=== PATIENT | male | born 1955 | race Caucasian/White ===

== ENCOUNTER 2023-11-17 10:15 | Outpatient (RCR) | payer MEDICARE, SELFPAY ==
[2023-10-27 10:24] VITALS: BP 159/88; PULSE 62; RESP 18; TEMP 35.6; BMI 62.8
--- NOTE | 2023-10-29 12:23 | WC ---
4.3.24 RT LAT ANKLE INITIAL
--- NOTE | 2023-10-30 10:02 | PCM.WC.HP ---
History of Present Illness Date of Service: 10/27/23 Chief Complaint: Right ankle ulceration History of Wound: Chronic right ankle wound Progress of Wound: Mr. Lane is a 68-year-old diabetic male presenting to the wound care center today for follow-up and evaluation for a right full-thickness wound to the outside of his ankle. Patient states he has been dealing with this wound for approximately 1 year. No treatment thus far. He has been doing home treatment with silver-cream and Band-Aid. Patient does admit to having a foot drop to the right lower extremity and uses a walker for support. He has suffered a stroke and has been recovering over the past year. Patient has not followed up with a professional in regards to the wound. He does admit to falls. He admits that his last A1c was 6.2%. He denies any new onset of trauma. Denies constitutional symptoms. No other pedal complaints at this time. [facility] Social History Smoking Status: Current every day smoker Vital Signs Vital Signs Vital Signs: Weight Weight: 210 kg Body Mass Index (BMI) 62.8 Physical Exam Narrative Vascular: DP and PT pulses are palpable. CFT is brisk. Skin temperature gradient is warm to cool from proximal ankle to distal digit bilateral. Nonpitting edema appreciated to the bilateral lower extremity. Neurological: Light touch intact. Protective sensation is diminished. Dermatological: Full-thickness ulceration to the lateral aspect of the right ankle measuring 1.1 x 1.1 x 0.2 cm. Wound base is granular nature with evidence of small amounts of fibrotic tissue. No active drainage at this time. Webspaces 1 through 4 are clean dry and intact. Toenails 1 through 5 within normal limits. Excision debridement down to and including subcutaneous tissue with a number 3 mm dermal curette to the right lateral ankle without incident. Predebridement measurement was 0.9 x 0.9 x 0.1 cm. Postdebridement measurement is 1.1 x 1.1 x 0.2 cm. Musculoskeletal: Muscle strength is 5 out of 5 to left lower extremity. Right lower extremity muscle strength is 3 out of 5 with evidence of foot drop. Mild pain to palpation to full-thickness ulceration right ankle. No pain with calf compression. Debridement Note Debridement Note Debridement Free Text: Excision debridement down to and including subcutaneous tissue with a number 3 mm dermal curette to the right lateral ankle without incident. Predebridement measurement was 0.9 x 0.9 x 0.1 cm. Postdebridement measurement is 1.1 x 1.1 x 0.2 cm. Post-Debridement Measurements and Additional Note: Post-Debridement Measurements/Treatment WC - Nurse 1 - General Ulcer Assessment Start: 10/27/23 10:23 Freq: Status: Active Protocol: TAVO Activity Type Activity Date Activity User E-sign Co-sign Detail Recorded Client Recorded Date Recorded By Document 10/27/23 10:24 KW Desktop 10/27/23 10:32 KW 10/27/23 10:24 WC - Today's Visit Information Type of service Initial Visit Arrival Mode Ambulatory, Walker Accompanied by Patient Identification Verified (Name & Yes ) Height and Weight Height 6 ft Weight 210 kg Weight in Pounds 463.0 lbs Body Mass Index (BMI) 62.8 BMI Classification Obese BSA - Esvin 3.04 Vital Signs Temperature (97.8 F-99.1 F) 96.0 F L Temperature Source Temporal Pulse Rate (60-100) 62 Pulse Location Monitor Respiratory Rate (12-18) 18 Respiratory rate source Observation Oxygen Delivery Method Room Air Blood Pressure (90/60-120/80) 159/88 H Blood Pressure Mean 111 Source Monitor Position Semi-Fowlers Blood Pressure Location Left Arm History Since Last Visit- (Skip if this is Patient's initial visit) Left Footwear Regular Shoe Right Footwear Regular Shoe Pain Scale: 0-10 Numeric Is Patient Pain Free? Yes Lower Extremity Assessment/ Foot Assessment/ Toe Nail Assessment Left -Posterior Tibial Doppler Inaudible -Dorsalis Pedis Palpable Yes -Dorsalis Pedis Doppler Monophasic -Hair Growth on Legs No -Hair Growth on Toes No -Temperature of Extremity Cool -Capillary Refill Less than 3 Seconds -Thick No -Discolored No -Deformed No -Improper Length & Hygeine No Right -Posterior Tibial Doppler Inaudible -Dorsalis Pedis Palpable Yes -Dorsalis Pedis Doppler Monophasic -Hair Growth on Legs No -Hair Growth on Toes No -Temperature of Extremity Cool -Capillary Refill Less than 3 Seconds -Thick No -Discolored No -Deformed No Neuropathy Assessment Feet - Top Side and Bottom <Entered> (a) Communication Assessment Preferred language Syrian Lock Installer Required No Able to Read Yes Able to Write Yes Communication Tools None Caregiver Communication Skills No Impairment Impairment Right Hearing Abillity Normal Left Hearing Abillity Normal Visual Assistive Devices Glasses Teaching Assessment Preferences Verbal,Written, Demonstration Barriers to Learning None Readiness To Learn Excellent Willingness to Engage in Self Management High Activies Readiness to Engage in Self Management High Activities Anxiety Level Calm Cooperation Cooperative Perception Coherent Interest in Health Problem Asks Questions Education Importance Acknowledges Need Does Patient Smoke tobacco or other Yes substances Smoking Status Current every day smoker Is Patient Diabetic Yes Functional Assessment Recent Decline in Ability to Perform Denies Any Declines, Ambulation Culture/Evangelical/Orthopaedic Surgeon Cultural/Evangelical Needs that may affect No Treatment Plan Would you allow our hospital medical information officer to No meet you for the purpose of spiritual/ emotional support? Orthopaedic Surgeon to contact place of mu-ism No (a) 1 - + WC - Nurse 1 - General Ulcer Measurement Start: 10/27/23 10:23 Freq: Status: Active Protocol: Activity Type Activity Date Activity User E-sign Co-sign Detail Recorded Client Recorded Date Recorded By Document 10/27/23 10:24 KW Desktop 10/27/23 10:32 KW 10/27/23 10:24 Wound Center Nurse 1 #1 RT LAT ANKLE -Current Size (cm) - Length 1 -Current Size (cm) - Width 0.9 -Current Size (cm) - Depth 0.1 -Total Square Cm 0.9 -Date of Last Picture (Recall this 10/27/23 field) -Photo Taken Yes -Exudate Amt Medium -Exudate Type Serosanguineous -Wound Margin Distinct, Outline Attached -Granulation Amt Medium (34-66%) -Granulation Quality [place] -Necrosis Amt Medium (34-66%) -Necrotic Tissue Type Adherent Slough -Texture (Essie-wound Skin Appearance) Assessed, Localized Edema -Moisture (Essie-wound Skin Appearance) Assessed -Color (Essie-wound Skin Appearance) Assessed, Erythema -Temperature (Essie-wound Skin No Abnormality Appearance) (Pt Warm) -Tenderness on Palpation (Essie-wound No Skin Appearance) -Ulcer Cleansing Rinsed/ Irrigated with Saline -Foul Odor after Cleansing No -Anesthetic Used 5% Lidocaine Gel Right Calf (cm) 35 Right Ankle (cm) 23 WC - Nurse 2 - General Ulcer CM Notes Start: 10/27/23 10:23 Freq: Status: Active Protocol: Activity Type Activity Date Activity User E-sign Co-sign Detail Recorded Client Recorded Date Recorded By Document 10/27/23 10:46 Laptop 10/27/23 10:54 10/27/23 10:46 Wound Center Nurse 2 #1 RT LAT ANKLE -Time 10:53 -Correct Patient Yes -Correct Side, Site, Position Yes -Correct Procedure Yes -Procedure Performed Yes -Type of Procedure Debridement -Clinical Debridement Subcutaneous -Tissue Removed Subcutaneous -Post Debridement (cm) - Length 1.1 -Post Debridement (cm) - Width 1.1 -Post Debridement (cm) - Depth 0.2 -Total Square (Post) (cm) 1.21 -Area of Debridement (cm) - Length 1.1 -Area of Debridement (cm) - Width 1.1 -Total Square (Area) (cm) 1.21 -Tunneling No -Undermining/Tunneling No -Circular Undermining No -Wound/Ulcer Outcome Not Healed -Ulcer Cleansing Rinsed/ Irrigated with Saline -Foul Odor after Cleansing No -Bioengineered Tissue No -Bleeding Controlled with Pressure -Treatment Response Procedure Tolerated Well -Offloading No -Assistive Device(s) Wheelchair -Debridement - Subq, 1st 20sq cm Yes Pain Scale: 0-10 Numeric Is Patient Pain Free? Yes - Nurse 3 - General Ulcer D/C NN Start: 10/27/23 10:23 Freq: Status: Active Protocol: Activity Type Activity Date Activity User E-sign Co-sign Detail Recorded Client Recorded Date Recorded By Document 10/27/23 11:00 Desktop 10/27/23 11:03 RB 10/27/23 11:00 Wound Care Center Nurse 3 #1 RT LAT ANKLE -Ulcer Cleansing Wound Cleanser -Primary Dressing Applied Mepilex Border -Other Dressing hydrogel -Primary Dressing Covered/Secured with Dry Gauze,Dry Gauze & Roll Gauze,Secured with Tape -Mepilex Border 1 Treatment Response Procedure Tolerated Well Pain Scale: 0-10 Numeric Is Patient Pain Free? Yes - Visit Discharge Discharge Condition Stable Ambulatory Status Ambulatory, Wheelchair Transportation Private Auto Medication Reconcilliation completed & No provided to patient/care provider Clinical Summary of Care Provided Yes Lab / Micro Data Micro: Microbiology 10/27/23 13:42 Wound Abcess - Ankle Gram Stain - Final 10/27/23 13:42 Wound Abcess - Ankle Wound Culture - Final Staphylococcus hominis hominis 10/27/23 13:42 Wound Abcess - Ankle Anaerobic Culture - Final No anaerobic bacteria isolated. Assessment/Plan Assessment/Plan (1) Non-pressure chronic ulcer of right ankle with fat layer exposed: CODE(S): L97.312 - Non-pressure chronic ulcer of right ankle with fat layer exposed PLAN: Patient was examined and evaluated. All findings were discussed with the patient. All questions were answered to the patient satisfaction. Excision debridement down to and including subcutaneous tissue with a number 3 mm dermal curette to the right lateral ankle without incident. Predebridement measurement was 0.9 x 0.9 x 0.1 cm. Postdebridement measurement is 1.1 x 1.1 x 0.2 cm. Culture was taken to rule out any possibility of bacterial infection at this time. After debridement the right lower extremities were cleaned and patted dry. Right lower extremity was dressed with Santyl, moist gauze, dry sterile dressing and a single-layer Tubigrip. X-ray will be taken of the right lower extremity ankle to rule out any bony involvement since the wound has been chronic for greater to approximately 1 year. Due to the decrease in pulses felt on physical exam we will order vascular studies arterial and venous. Was also educated to the patient and his that the patient does suffer from foot drop to right lower extremity and will benefit from a dorsiflexion assist Ganesh brace. The patient will need to follow-up in the office to get the brace ordered. Persist card was dispensed to the patient for follow-up in office. All things were discussed with the patient in great detail. He was given a prescription to purchase Santyl from his pharmacy. The patient will follow-up with Dr. Etienne at the wound care center in 1 week. (2) Chronic painful diabetic polyneuropathy: CODE(S): E11.42 - Type 2 diabetes mellitus with diabetic polyneuropathy (3) Other specified peripheral vascular diseases: CODE(S): I73.89 - Other specified peripheral vascular diseases (4) Foot drop, right: CODE(S): M21.371 - Foot drop, right foot
[2023-11-03 10:38] VITALS: BP 144/85; PULSE 76; RESP 18; TEMP 36.1; BMI 62.8
--- NOTE | 2023-11-03 11:53 | PCM.WC.PN ---
History of Present Illness Date of Service: 11/03/23 Chief Complaint: Right ankle ulceration History of Wound: Chronic right ankle wound Progress of Wound: Mr. Lane is a 68-year-old diabetic male presenting to the wound care center today for follow-up and evaluation for a right full-thickness wound to the outside of his ankle. Patient states he has been dealing with this wound for approximately 1 year. No treatment thus far. He has been doing home treatment with silver-cream and Band-Aid. Patient does admit to having a foot drop to the right lower extremity and uses a walker for support. He has suffered a stroke and has been recovering over the past year. Patient has not followed up with a professional in regards to the wound. He does admit to falls. He admits that his last A1c was 6.2%. He denies any new onset of trauma. Denies constitutional symptoms. No other pedal complaints at this time. Subjective Subjective Mr. Hernandez is a 68-year-old diabetic male presenting to wound care center today for follow-up and evaluation of full-thickness ulceration to the right ankle. Patient has not done his vascular studies yet nor his x-ray at this time. His cultures have come back positive for staph infection and will be put on antibiotics once discharged today. Patient has been compliant with using his Santyl moist gauze and dry sterile dressing. He still has evidence of foot drop to the right lower extremity and uses a walker for ambulation. His blood sugars well-controlled. He denies any falls at this time. He denies any trauma. Denies constitutional symptoms. Other pedal complaints at this time. Objective Data Objective Data Vital Signs: Vital Signs Temp Pulse Resp BP O2 Del Method 97 F L 76 18 144/85 H Room Air 11/03/23 10:38 11/03/23 10:38 11/03/23 10:38 11/03/23 10:38 10/27/23 10:24 Oxygen Delivery Method Room Air Weight: 210 kg Body Mass Index (BMI) 62.8 Lab / Micro Data Micro: Microbiology 10/27/23 13:42 Wound Abcess - Ankle Gram Stain - Final 10/27/23 13:42 Wound Abcess - Ankle Wound Culture - Final Staphylococcus hominis hominis 10/27/23 13:42 Wound Abcess - Ankle Anaerobic Culture - Final No anaerobic bacteria isolated. Physical Exam Narrative Vascular: DP and PT pulses are palpable. CFT is brisk. Skin temperature gradient is warm to cool from proximal ankle to distal digit bilateral. Nonpitting edema appreciated to the bilateral lower extremity. Neurological: Light touch intact. Protective sensation is diminished. Dermatological: Full-thickness ulceration to the lateral aspect of the right ankle measuring 1.0 x 0.9 x 0.2 cm. Wound base is granular nature with evidence of small amounts of fibrotic tissue. No active drainage at this time. Webspaces 1 through 4 are clean dry and intact. Toenails 1 through 5 within normal limits. Excision debridement down to and including subcutaneous tissue with a number 3 mm dermal curette to the right lateral ankle without incident. Predebridement measurement was 0.9 x 0.9 x 0.1 cm. Postdebridement measurement is 1.0 x 0.9 x 0.2 cm. Musculoskeletal: Muscle strength is 5 out of 5 to left lower extremity. Right lower extremity muscle strength is 3 out of 5 with evidence of foot drop. Mild pain to palpation to full-thickness ulceration right ankle. No pain with calf compression. Debridement Note Debridement Note Debridement Free Text: Excision debridement down to and including subcutaneous tissue with a number 3 mm dermal curette to the right lateral ankle without incident. Predebridement measurement was 0.9 x 0.9 x 0.1 cm. Postdebridement measurement is 1.0 x 0.9 x 0.2 cm. Post-Debridement Measurements and Additional Note: Post-Debridement Measurements/Treatment - Nurse 1 - General Ulcer Assessment Start: 10/27/23 10:23 Freq: Status: Active Protocol: TAVO Activity Type Activity Date Activity User E-sign Co-sign Detail Recorded Client Recorded Date Recorded By Document 10/27/23 10:24 KW Desktop 10/27/23 10:32 KW Document 11/03/23 10:38 RB Desktop 11/03/23 10:41 RB 10/27/23 11/03/23 10:24 10:38 - Today's Visit Information Type of service Initial Visit Follow-up Visit (Physician/[employer] ) Arrival Mode Ambulatory, Ambulatory Walker Transfer Assistance None Accompanied by Patient Identification Verified (Name & Yes Yes ) Patient Requires Transmission-Based No Precautions Height and Weight Height 6 ft Weight 210 kg Weight in Pounds 463.0 lbs Body Mass Index (BMI) 62.8 62.8 BMI Classification Obese Obese BSA - Esvin 3.04 Vital Signs Temperature (97.8 F-99.1 F) 96.0 F L 97 F L Temperature Source Temporal Temporal Pulse Rate (60-100) 62 76 Pulse Location Monitor Monitor Respiratory Rate (12-18) 18 18 Respiratory rate source Observation Observation Oxygen Delivery Method Room Air Blood Pressure (90/60-120/80) 159/88 H 144/85 H Blood Pressure Mean (mm Hg) 111 104 Source Monitor Monitor Position Semi-Fowlers Semi-Fowlers Blood Pressure Location Left Arm Left Arm History Since Last Visit- (Skip if this is Patient's initial visit) Have you changed medications since your No last visit? Any new allergies or adverse reactions No Had a fall/change in ADL's that may No increase risk of falls Signs or symptoms of abuse and/or No neglect since last visit Have you been in the hospital since your No last visit? Has dressing in place as prescribed Yes Has compression in place as prescribed Yes Has offloadiing in place as prescribed No Experienced any changes in pain level or No management Left Footwear Regular Shoe Right Footwear Regular Shoe Pain Scale: 0-10 Numeric Is Patient Pain Free? Yes Yes Lower Extremity Assessment/ Foot Assessment/ Toe Nail Assessment Left -Posterior Tibial Doppler Inaudible -Dorsalis Pedis Palpable Yes -Dorsalis Pedis Doppler Monophasic -Hair Growth on Legs No -Hair Growth on Toes No -Temperature of Extremity Cool -Capillary Refill Less than 3 Seconds -Thick No -Discolored No -Deformed No -Improper Length & Hygeine No Right -Posterior Tibial Doppler Inaudible -Dorsalis Pedis Palpable Yes -Dorsalis Pedis Doppler Monophasic -Hair Growth on Legs No -Hair Growth on Toes No -Temperature of Extremity Cool -Capillary Refill Less than 3 Seconds -Thick No -Discolored No -Deformed No Neuropathy Assessment Feet - Top Side and Bottom <Entered> (a) Communication Assessment Preferred language Maori [place] Manager Required No Able to Read Yes Able to Write Yes Communication Tools None Caregiver Communication Skills No Impairment Impairment Right Hearing Abillity Normal Left Hearing Abillity Normal Visual Assistive Devices Glasses Teaching Assessment Preferences Verbal,Written, Demonstration Barriers to Learning None Readiness To Learn Excellent Willingness to Engage in Self Management High Activies Readiness to Engage in Self Management High Activities Anxiety Level Calm Cooperation Cooperative Perception Coherent Interest in Health Problem Asks Questions Education Importance Acknowledges Need Does Patient Smoke tobacco or other Yes substances Smoking Status Current every day smoker Is Patient Diabetic Yes Functional Assessment Recent Decline in Ability to Perform Denies Any Declines, Ambulation Culture/Mosque/Wire Saw Operator Cultural/Mosque Needs that may affect No Treatment Plan Would you allow our [facility] marine superintendent to No meet you for the purpose of spiritual/ emotional support? Wire Saw Operator to contact place of shinto No (a) 1 - + WC - Nurse 1 - General Ulcer Measurement Start: 10/27/23 10:23 Freq: Status: Active Protocol: Activity Type Activity Date Activity User E-sign Co-sign Detail Recorded Client Recorded Date Recorded By Document 10/27/23 10:24 KW Desktop 10/27/23 10:32 KW Document 11/03/23 10:38 RB Desktop 11/03/23 10:41 RB 10/27/23 11/03/23 10:24 10:38 Wound Center Nurse 1 #1 RT LAT ANKLE -Combined with other wound No -Current Size (cm) - Length 1 1.5 -Current Size (cm) - Width 0.9 1 -Current Size (cm) - Depth 0.1 0.1 -Total Square Cm 0.9 1.5 -Date of Last Picture (Recall this 10/27/23 field) -Photo Taken Yes -Tunneling No -Undermining/Tunneling No -Circular Undermining No -Exudate Amt Medium Large -Exudate Type Serosanguineous Serosanguineous -Wound Margin Distinct, Distinct, Outline Outline Attached Attached -Granulation Amt Medium (34-66%) Medium (34-66%) -Granulation Quality [place] -Slough/Fibrin Yes -Necrosis Amt Medium (34-66%) Medium (34-66%) -Necrotic Tissue Type Adherent Slough Adherent Slough -Structure Exposed N/A -Texture (Essie-wound Skin Appearance) Assessed, Assessed, Localized Edema Scarring -Moisture (Essie-wound Skin Appearance) Assessed Assessed -Color (Essie-wound Skin Appearance) Assessed, Assessed Erythema -Temperature (Essie-wound Skin No Abnormality No Abnormality Appearance) (Pt Warm) (Pt Warm) -Tenderness on Palpation (Essie-wound No No Skin Appearance) -Ulcer Cleansing Rinsed/ Wound Cleanser Irrigated with Saline -Foul Odor after Cleansing No No -Anesthetic Used 5% Lidocaine 5% Lidocaine Gel Gel Right Calf (cm) 35 Right Ankle (cm) 23 - Nurse 2 - General Ulcer CM Notes Start: 10/27/23 10:23 Freq: Status: Active Protocol: Activity Type Activity Date Activity User E-sign Co-sign Detail Recorded Client Recorded Date Recorded By Document 10/27/23 10:46 Laptop 10/27/23 10:54 Document 11/03/23 11:03 Laptop 11/03/23 11:08 10/27/23 11/03/23 10:46 11:03 Wound Center Nurse 2 #1 RT LAT ANKLE -Time 10:53 11:04 -Correct Patient Yes Yes -Correct Side, Site, Position Yes Yes -Correct Procedure Yes Yes -Procedure Performed Yes Yes -Type of Procedure Debridement Debridement -Clinical Debridement Subcutaneous Subcutaneous -Tissue Removed Subcutaneous Subcutaneous -Post Debridement (cm) - Length 1.1 1.0 -Post Debridement (cm) - Width 1.1 0.9 -Post Debridement (cm) - Depth 0.2 0.2 -Total Square (Post) (cm) 1.21 0.90 -Area of Debridement (cm) - Length 1.1 1.0 -Area of Debridement (cm) - Width 1.1 0.9 -Total Square (Area) (cm) 1.21 0.90 -Tunneling No No -Undermining/Tunneling No No -Circular Undermining No No -Wound/Ulcer Outcome Not Healed Not Healed -Ulcer Cleansing Rinsed/ Rinsed/ Irrigated with Irrigated with Saline Saline -Foul Odor after Cleansing No No -Bioengineered Tissue No No -Bleeding Controlled with Pressure Pressure -Treatment Response Procedure Procedure Tolerated Well Tolerated Well -Offloading No No -Assistive Device(s) Wheelchair -Debridement - Subq, 1st 20sq cm Yes Yes Pain Scale: 0-10 Numeric Is Patient Pain Free? Yes Yes - Nurse 3 - General Ulcer D/C NN Start: 10/27/23 10:23 Freq: Status: Active Protocol: Activity Type Activity Date Activity User E-sign Co-sign Detail Recorded Client Recorded Date Recorded By Document 10/27/23 11:00 RB Desktop 10/27/23 11:03 RB Document 11/03/23 11:23 RB Desktop 11/03/23 11:24 RB 10/27/23 11/03/23 11:00 11:23 Wound Care Center Nurse 3 #1 RT LAT ANKLE -Ulcer Cleansing Wound Cleanser Rinsed/ Irrigated with Saline -Primary Dressing Applied Mepilex Border Mepilex Border -Other Dressing hydrogel hydrogel / moistened gauze -Primary Dressing Covered/Secured with Dry Gauze,Dry Gauze & Roll Gauze,Secured with Tape -Mepilex Border 1 1 Treatment Response Procedure Procedure Tolerated Well Tolerated Well Pain Scale: 0-10 Numeric Is Patient Pain Free? Yes Yes WC - Visit Discharge Discharge Condition Stable Stable Ambulatory Status Ambulatory, Ambulatory Wheelchair Transportation Private Auto Private Auto Medication Reconcilliation completed & No No provided to patient/care provider Clinical Summary of Care Provided Yes Yes Assessment/Plan Assessment/Plan (1) Non-pressure chronic ulcer of right ankle with fat layer exposed: CODE(S): L97.312 - Non-pressure chronic ulcer of right ankle with fat layer exposed PLAN: Patient was examined and evaluated. All findings were discussed with the patient. All questions were answered to the patient's satisfaction. Excision debridement down to and including subcutaneous tissue with a number 3 mm dermal curette to the right lateral ankle without incident. Predebridement measurement was 0.9 x 0.9 x 0.1 cm. Postdebridement measurement is 1.0 x 0.9 x 0.2 cm. Right lower extremities were cleaned and patted dry. The ulceration was dressed with nickel thick Santyl moist gauze dry sterile dressing and single-layer Tubigrip. Patient will plan for x-rays and vascular studies next week. After reviewing the patient's culture results few shows evidence of Staph hominis that was growing in the right full-thickness ulceration. The patient will be placed on doxycycline 100 mg twice daily for 2 weeks. Educated patient on risk and benefits of antibiotics and he will move forward with taking them and following the manufactures recommendations. Follow-up at the wound care center with Dr. Etienne in 1 week. (2) Other specified peripheral vascular diseases: CODE(S): I73.89 - Other specified peripheral vascular diseases (3) Foot drop, right: CODE(S): M21.371 - Foot drop, right foot (4) Chronic painful diabetic polyneuropathy: CODE(S): E11.42 - Type 2 diabetes mellitus with diabetic polyneuropathy
--- NOTE | 2023-11-08 09:53 | ART_ITS ---
Reason For Study: Ulcer Procedure A bilateral lower extremity continuous wave Doppler with analog waveform analysis,segmental pressures,and ankle brachial indexes without exercise. Prelim given to Dr. Etienne. Left Segmental Pressures Left brachial= 137mmHg. Left thigh = 147mmHg. Left calf = 145mmHg. Left posterior tibial artery = 143mmHg. Left dorsalis pedis artery = 135mmHg. Left digit = 121 mmHg. Right Segmental Pressures Right brachial= 147mmHg. Right thigh = 66mmHg. Right calf = 92mmHg. Right posterior tibial artery = 60mmHg. Right dorsalis pedis artery = 63mmHg. Right digit = 47 mmHg. Indices The right ankle brachial index by the posterior tibial artery is 0.41. The right ankle brachial index by the dorsalis pedis is 0.43. The right digital-brachial index is 0.32. The left ankle brachial index by the posterior tibial artery is 0.97. The left ankle brachial index by the dorsalis pedis is 0.92. The left digital-brachial index is 0.82. VL/Lower Ext Art Exam w/o Exercis Interpretation Summary Monophasic Doppler waveforms are noted at ankle level on the right. Triphasic D oppler waveforms are noted at ankle level on the left. Pulse-volume recordings appear diminished at all levels on the right. The resting right ankle-brachial index is severely diminished. The resti ng left ankle- brachial index is normal. The right digital-brachial index is severely diminish ed. The left digital- brachial index is normal. 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 There is no evidence of significant arterial occlusive disease in th e left lower extremity. Ordering Physician: Derrek Etienne Referring Physician: Tesfaye Gunderson Performed By: Natty Booth RDCS/RVT
--- NOTE | 2023-11-08 09:53 | VDLE_ITS ---
Reason For Study: Ulcer RIGHT LEFT GSV is normal. CFV is compressible, spontaneous, phasic, CFV is compressible, spontaneous, phasic, competent, and demonstrates normal competent and demonstrates normal augmentation. augmentation. FV is compressible, spontaneous, phasic, FV is compressible, spontaneous, phasic, competent and demonstrates normal competent and demonstrates normal augmentation. augmentation. POP V is compressible, spontaneous, phasic, POP V is compressible, spontaneous, phasic, competent and demonstrates normal competent and demonstrates normal augmentation. augmentation. T/P Trunk is compressible. T/P Trunk is compressible. PTV is compressible. PTV is compressible. LT PerV is compressible. RT PerV is compressible. SFJ is competent and measures 0.57cm x 0.50 SFJ is competent and measures 0.55cm x 0.52 cm. cm. GSV proximal thigh measures 0.34cm x 0.36 cm. GSV proximal thigh measures 0.37cm x 0.40 cm. GSV at knee measures 0.24cm x 0.27 cm. GSV at knee measures 0.28cm x 0.27 cm. GSV above knee is INCOMPETENT for greater GSV is competent throughout. than 0.5 seconds. SSV proximal calf is competent and measures GSV below knee is competent. 0.14cm x 0.12 cm. SSV proximal calf is competent and measures Procedure 0.31cm x 0.33 cm. This is a venous duplex using B-mode, color flow and spectral Doppler. Exam performed in department. A preliminary report was called and/or faxed to . VL/Venous Duplex US - Bryan Extrem Interpretation Summary Deep veins of the lower extremities are bilaterally patent and compressible seg mentally. There is no evidence of deep vein thrombosis on either side. Valvular competence appears in tact within the proximal deep venous systems bilaterally. The great saphenous veins appear bila terally patent and compressible segmentally. Sapheno-femoral junctions are bilaterally competent . The right great saphenous vein appears segmentally competent. The left great saphenous vein miki ears incompetent above the knee. The left great saphenous vein appears competent below the knee. Small saphenous veins are patent and competent bilaterally. Ordering Physician: Derrek Etienne Referring Physician: Tesfaye Gunderson Performed By: Natty Booth, GERMAN, RVT
--- NOTE | 2023-11-08 11:29 | RAD_ITS ---
INDICATION: ULCER EXAMINATION/TECHNIQUE: X-RAY - RIGHT XR Ankle 2 Views 2 VIEWS COMPARISON: No relevant prior comparison study available FINDINGS: SOFT TISSUES: Mild soft tissue swelling of the lateral aspect of the ankle. No radiopaque foreign body. BONES/JOINTS: No evidence of acute fracture or dislocation. Small well-defined bony density distal to the tip of the medial malleolus could be due to old injury. Normal alignment. Preservation of the joint space.. No sclerotic or destructive changes observed. RAD/Ankle 2 Views IMPRESSION: Mild soft tissue swelling. No evidence of acute osseous changes. Electronically Signed: Carlton Pandey MD at 12:08 EDT ,
[2023-11-10 10:18] VITALS: BP 150/73; PULSE 55; RESP 16; TEMP 35.9; BMI 62.8
--- NOTE | 2023-11-10 10:57 | PN.PCM_ITS ---
History of Present Illness Date of Service: 11/10/23 Chief Complaint: Right ankle ulceration History of Wound: Chronic right ankle wound Progress of Wound: Mr. Lane is a 68-year-old diabetic male presenting to the wound care center today for follow-up and evaluation for a right full-thickness wound to the outside of his ankle. Patient states he has been dealing with this wound for approximately 1 year. No treatment thus far. He has been doing home treatment with silver-cream and Band-Aid. Patient does admit to having a foot drop to the right lower extremity and uses a walker for support. He has suffered a stroke and has been recovering over the past year. Patient has not followed up with a professional in regards to the wound. He does admit to falls. He admits that his last A1c was 6.2%. He denies any new onset of trauma. Denies constitutiona l symptoms. No other pedal complaints at this time. Subjective Subjective Mr. Lane is a 68-year-old male presenting to wound care center for follow-up and evaluation of full-thickness ulceration to the right lateral ankle. Patient has been compliant with dressing changes to the right lower extremity. Patient admits to getting his right ankle x-rays and vascular studies and is following up for interpretation evaluation of those as well. He denies any pain to the right ankle. He denies any trauma. He continues to ambulate with a walker without issues. He denies constitutional symptoms. No other pedal complaints at this time. Objective Data Objective Data Vital Signs: Vital Signs Temp Pulse Resp BP O2 Del Method 96.7 F L 55 L 16 150/73 H Room Air 11/10/23 10:18 11/10/23 10:18 11/10/23 10:18 11/10/23 10:18 11/10/23 10:18 Oxygen Delivery Method Room Air Weight: 210 kg Body Mass Index (BMI) 62.8 Lab / Micro Data Micro: Microbiology 10/27/23 13:42 Wound Abcess - Ankle Gram Stain - Final 10/27/23 13:42 Wound Abcess - Ankle Wound Culture - Final Staphylococcus hominis hominis 10/27/23 13:42 Wound Abcess - Ankle Anaerobic Culture - Final No anaerobic bacteria isolated. Physical Exam Narrative Vascular: DP and PT pulses are palpable. CFT is brisk. Skin temperature gradient is warm to cool from proximal ankle to distal digit bilateral. Nonpitting edema appreciated to the bilateral lower extremity. Neurological: Light touch intact. Protective sensation is diminished. Dermatological: Full-thickness ulceration to the lateral aspect of the right ankle measuring 1.1 x 1.3 x 0.2 cm. Wound base is granular nature with evidence of small amounts of fibrotic tissue. No active drainage at this time. Webspaces 1 through 4 are clean dry and intact. Toenails 1 through 5 within normal limits. Excision debridement down to and including subcutaneous tissue with a number 3 mm dermal curette to the right lateral ankle without incident. Predebridement measurement was 1.0 x 1.1 x 0.1 cm. Postdebridement measurement is 1.1 x 1.3 x 0.2 cm. Musculoskeletal: Muscle strength is 5 out of 5 to left lower extremity. Right lower extremity muscle strength is 3 out of 5 with evidence of foot drop. Mild pain to palpation to full-thickness ulceration right ankle. No pain with calf compression. Debridement Note Debridement Note Debridement Free Text: Excision debridement down to and including subcutaneous tissue with a number 3 mm dermal curette to the right lateral ankle without incident. Predebridement measurement was 1.0 x 1.1 x 0.1 cm. Postdebridement measurement is 1.1 x 1.3 x 0.2 cm. Post-Debridement Measurements and Additional Note: Post-Debridement Measurements/Treatment - Nurse 1 - General Ulcer Assessment Start: 10/27/23 10:23 Freq: Status: Active Protocol: .LOWEXFritz Activity Type Activity Date Activity User E-sign Co-sign Detail Recorded Client Recorded Date Recorded By Document 10/27/23 10:24 Desktop 10/27/23 10:32 KW Document 11/03/23 10:38 RB Desktop 11/03/23 10:41 RB Document 11/10/23 10:18 Desktop 11/10/23 10:24 10/27/23 11/03/23 11/10/23 10:24 10:38 10:18 - Today's Visit Information Type of service Initial Visit Follow-up Visit Follow-up Visit (Physician/FREIGHT CLAIM INVESTIGATOR (Physician/FREIGHT CLAIM INVESTIGATOR ) ) Arrival Mode Ambulatory, Ambulatory Ambulatory, Walker Walker Transfer Assistance None None Accompanied by Patient Identification Verified (Name & Yes Yes Yes ) Patient Requires Transmission-Based No No Precautions Height and Weight Height 6 ft Weight 210 kg Weight in Pounds 463.0 lbs Body Mass Index (BMI) 62.8 62.8 62.8 BMI Classification Obese Obese Obese BSA - Esvin 3.04 Vital Signs Temperature (97.8 F-99.1 F) 96.0 F L 97 F L 96.7 F L Temperature Source Temporal Temporal Temporal Pulse Rate (60-100) 62 76 55 L Pulse Location Monitor Monitor Monitor Respiratory Rate (12-18) 18 18 16 Respiratory rate source Observation Observation Observation Oxygen Delivery Method Room Air Room Air Blood Pressure (90/60-120/80) 159/88 H 144/85 H 150/73 H Blood Pressure Mean (mm Hg) 111 104 98 Source Monitor Monitor Monitor Position Semi-Fowlers Semi-Fowlers Sitting Blood Pressure Location Left Arm Left Arm Left Arm History Since Last Visit- (Skip if this is Patient's initial visit) Have you changed medications since your No No last visit? Any new allergies or adverse reactions No No Had a fall/change in ADL's that may No No increase risk of falls Signs or symptoms of abuse and/or No No neglect since last visit Have you been in the hospital since your No No last visit? Has dressing in place as prescribed Yes Yes Has compression in place as prescribed Yes Has offloadiing in place as prescribed No Experienced any changes in pain level or No management Left Footwear Regular Shoe Regular Shoe Right Footwear Regular Shoe Regular Shoe Pain Scale: 0-10 Numeric Is Patient Pain Free? Yes Yes Yes Lower Extremity Assessment/ Foot Assessment/ Toe Nail Assessment Left -Posterior Tibial Doppler Inaudible -Dorsalis Pedis Palpable Yes -Dorsalis Pedis Doppler Monophasic -Hair Growth on Legs No -Hair Growth on Toes No -Temperature of Extremity Cool -Capillary Refill Less than 3 Seconds -Thick No -Discolored No -Deformed No -Improper Length & Hygeine No Right -Posterior Tibial Doppler Inaudible -Dorsalis Pedis Palpable Yes -Dorsalis Pedis Doppler Monophasic -Hair Growth on Legs No -Hair Growth on Toes No -Temperature of Extremity Cool -Capillary Refill Less than 3 Seconds -Thick No -Discolored No -Deformed No Neuropathy Assessment Feet - Top Side and Bottom <Entered> (a) Communication Assessment Preferred language [place] Required No Able to Read Yes Able to Write Yes Communication Tools None Caregiver Communication Skills No Impairment Impairment Right Hearing Abillity Normal Left Hearing Abillity Normal Visual Assistive Devices Glasses Teaching Assessment Preferences Verbal,Written, Demonstration Barriers to Learning None Readiness To Learn Excellent Willingness to Engage in Self Management High Activies Readiness to Engage in Self Management High Activities Anxiety Level Calm Cooperation Cooperative Perception Coherent Interest in Health Problem Asks Questions Education Importance Acknowledges Need Does Patient Smoke tobacco or other Yes substances Smoking Status Current every day smoker Is Patient Diabetic Yes Functional Assessment Recent Decline in Ability to Perform Denies Any Declines, Ambulation Culture/Advent/Health Care Manager Cultural/Advent Needs that may affect No Treatment Plan Would you allow our [facility] buyer to No meet you for the purpose of spiritual/ emotional support? Health Care Manager to contact place of latter-day No (a) 1 - + WC - Nurse 1 - General Ulcer Measurement Start: 10/27/23 10:23 Freq: Status: Active Protocol: Activity Type Activity Date Activity User E-sign Co-sign Detail Recorded Client Recorded Date Recorded By Document 10/27/23 10:24 KW [employer] 10/27/23 10:32 KW Document 11/03/23 10:38 RB Desktop 11/03/23 10:41 RB Document 11/10/23 10:18 Desktop 11/10/23 10:24 10/27/23 11/03/23 11/10/23 10:24 10:38 10:18 Wound Center Nurse 1 #1 RT LAT ANKLE -Combined with other wound No No -Current Size (cm) - Length 1 1.5 3.0 -Current Size (cm) - Width 0.9 1 1.2 -Current Size (cm) - Depth 0.1 0.1 0.3 -Total Square Cm 0.9 1.5 3.60 -Date of Last Picture (Recall this 10/27/23 field) -Photo Taken Yes No -Epithelialization None Present -Tunneling No No -Undermining/Tunneling No No -Circular Undermining No No -Exudate Amt Medium Large Small -Exudate Type Serosanguineous Serosanguineous Serosanguineous -Wound Margin Distinct, Distinct, Distinct, Outline Outline Outline Attached Attached Attached -Granulation Amt Medium (34-66%) Medium (34-66%) Small (1-33%) -Granulation Quality [place] -Slough/Fibrin Yes Yes -Necrosis Amt Medium (34-66%) Medium (34-66%) Small (1-33%) -Necrotic Tissue Type Adherent Slough Adherent Slough Adherent Slough -Structure Exposed N/A -Texture (Essie-wound Skin Appearance) Assessed, Assessed, Assessed Localized Edema Scarring -Moisture (Essie-wound Skin Appearance) Assessed Assessed Assessed, Maceration -Color (Essie-wound Skin Appearance) Assessed, Assessed Assessed Erythema -Temperature (Essie-wound Skin No Abnormality No Abnormality No Abnormality Appearance) (Pt Warm) (Pt Warm) (Pt Warm) -Tenderness on Palpation (Essie-wound No No No Skin Appearance) -Ulcer Cleansing Rinsed/ Wound Cleanser Rinsed/ Irrigated with Irrigated with Saline Saline -Foul Odor after Cleansing No No Yes -Anesthetic Used 5% Lidocaine 5% Lidocaine 5% Lidocaine Gel Gel Gel Right Calf (cm) 35 Right Ankle (cm) 23 WC - Nurse 2 - General Ulcer CM Notes Start: 10/27/23 10:23 Freq: Status: Active Protocol: Activity Type Activity Date Activity User E-sign Co-sign Detail Recorded Client Recorded Date Recorded By Document 10/27/23 10:46 [employer] 10/27/23 10:54 [employer] Document 11/03/23 11:03 CNZZtop 11/03/23 11:08 [employer] Document 11/10/23 10:30 [employer] Laptop 11/10/23 10:43 10/27/23 11/03/23 11/10/23 10:46 11:03 10:30 Wound Center Nurse 2 #1 RT LAT ANKLE -Time 10:53 11:04 10:33 -Correct Patient Yes Yes Yes -Correct Side, Site, Position Yes Yes Yes -Correct Procedure Yes Yes Yes -Procedure Performed Yes Yes Yes -Type of Procedure Debridement Debridement Debridement -Clinical Debridement Subcutaneous Subcutaneous Subcutaneous -Tissue Removed Subcutaneous Subcutaneous Subcutaneous -Post Debridement (cm) - Length 1.1 1.0 1.1 -Post Debridement (cm) - Width 1.1 0.9 1.3 -Post Debridement (cm) - Depth 0.2 0.2 0.2 -Total Square (Post) (cm) 1.21 0.90 1.43 -Area of Debridement (cm) - Length 1.1 1.0 1.1 -Area of Debridement (cm) - Width 1.1 0.9 1.3 -Total Square (Area) (cm) 1.21 0.90 1.43 -Tunneling No No No -Undermining/Tunneling No No No -Circular Undermining No No No -Wound/Ulcer Outcome Not Healed Not Healed Not Healed -Ulcer Cleansing Rinsed/ Rinsed/ Rinsed/ Irrigated with Irrigated with Irrigated with Saline Saline Saline -Foul Odor after Cleansing No No No -Bioengineered Tissue No No No -Bleeding Controlled with Pressure Pressure Pressure -Treatment Response Procedure Procedure Procedure Tolerated Well Tolerated Well Tolerated Well -Offloading No No No -Assistive Device(s) Wheelchair -Debridement - Subq, 1st 20sq cm Yes Yes Yes Pain Scale: 0-10 Numeric Is Patient Pain Free? Yes Yes Yes - Nurse 3 - General Ulcer D/C NN Start: 10/27/23 10:23 Freq: Status: Active Protocol: Activity Type Activity Date Activity User E-sign Co-sign Detail Recorded Client Recorded Date Recorded By Document 10/27/23 11:00 RB Desktop 10/27/23 11:03 RB Document 11/03/23 11:23 RB Desktop 11/03/23 11:24 RB 10/27/23 11/03/23 11:00 11:23 Wound Care Center Nurse 3 #1 RT LAT ANKLE -Ulcer Cleansing Wound Cleanser Rinsed/ Irrigated with Saline -Primary Dressing Applied Mepilex Border Mepilex Border -Other Dressing hydrogel hydrogel / moistened gauze -Primary Dressing Covered/Secured with Dry Gauze,Dry Gauze & Roll Gauze,Secured with Tape -Mepilex Border 1 1 Treatment Response Procedure Procedure Tolerated Well Tolerated Well Pain Scale: 0-10 Numeric Is Patient Pain Free? Yes Yes - Visit Discharge Discharge Condition Stable Stable Ambulatory Status Ambulatory, Ambulatory Wheelchair Transportation Private Auto Private Auto Medication Reconcilliation completed & No No provided to patient/care provider Clinical Summary of Care Provided Yes Yes Assessment/Plan Assessment/Plan (1) Non-pressure chronic ulcer of right ankle with fat layer exposed: CODE(S): L97.312 - Non-pressure chronic ulcer of right ankle with fat layer exposed PLAN: Patient was examined and evaluated. All findings were discussed with the patient. All questions were answered to the patient's satisfaction. Excision debridement down to and including subcutaneous tissue with a number 3 mm dermal curette to the right lateral ankle without incident. Predebridement measurement was 1.0 x 1.1 x 0.1 cm. Postdebridement measurement is 1.1 x 1.3 x 0.2 cm. The right lower extremities were cleaned and patted dry. Santyl nickel thick was applied to the full-thickness ulceration followed by wet gauze dry sterile dressing and single-layer Tubigrip. Patient's right ankle films were reviewed which show no evidence of bone involvement or sign of osteomyelitis. After reviewing the patient's venous studies the venous studies are unremarkable at this time. After reviewing the patient's arterial studies there shows evidence of an SHARITA to the right lower extremity 8.4 and we will begin referral to Dr. Weston for vascular surgery evaluation and intervention based on their recommendations. Due to the patient having compromised vascular flow to the right lower extremity will begin authorization for EpiFix skin graft substitute as this will aid in benefit healing the patient's chronic full-thickness wound to the lateral aspect of the right ankle. The wound has been professionally managed by professionals for 4 weeks. Follow-up at the wound care center with Dr. Etienne in 1 week. (2) Other specified peripheral vascular diseases: CODE(S): I73.89 - Other specified peripheral vascular diseases
[2023-11-17 10:16] VITALS: BP 151/101; PULSE 62; RESP 18; TEMP 35.4; BMI 62.8
--- NOTE | 2023-11-17 10:33 | PCM.WC.PN ---
History of Present Illness Date of Service: 11/17/23 Chief Complaint: Right ankle ulceration History of Wound: Chronic right ankle wound Progress of Wound: Mr. Lane is a 68-year-old diabetic male presenting to the wound care center today for follow-up and evaluation for a right full-thickness wound to the outside of his ankle. Patient states he has been dealing with this wound for approximately 1 year. No treatment thus far. He has been doing home treatment with silver-cream and Band-Aid. Patient does admit to having a foot drop to the right lower extremity and uses a walker for support. He has suffered a stroke and has been recovering over the past year. Patient has not followed up with a professional in regards to the wound. He does admit to falls. He admits that his last A1c was 6.2%. He denies any new onset of trauma. Denies constitutional symptoms. No other pedal complaints at this time. Subjective Subjective Mr. Lane is a 68-year-old male presenting to clinic today with a chief complaint of full-thickness ulceration to the outside of the right ankle. Patient has been compliant with his wound care and dressing changes and is presenting today for application of skin graft substitute as we just got approved through the patient's insurance. Patient admits to some tenderness to the wound as he is not neuropathic. He continues to ambulate in regular without his shoe gear with assistance of a walker secondary to foot drop to the right lower extremity. Denies trauma. Denies constitutional symptoms. No other pedal complaints at this time. Objective Data Objective Data Vital Signs: Vital Signs Temp Pulse Resp BP O2 Del Method 95.8 F L 62 18 151/101 H Room Air 11/17/23 10:16 11/17/23 10:16 11/17/23 10:16 11/17/23 10:16 11/17/23 10:16 Oxygen Delivery Method Room Air Weight: 210 kg Body Mass Index (BMI) 62.8 Lab / Micro Data Micro: Microbiology 10/27/23 13:42 Wound Abcess - Ankle Gram Stain - Final 10/27/23 13:42 Wound Abcess - Ankle Wound Culture - Final Staphylococcus hominis hominis 10/27/23 13:42 Wound Abcess - Ankle Anaerobic Culture - Final No anaerobic bacteria isolated. Physical Exam Narrative Vascular: DP and PT pulses are palpable. CFT is brisk. Skin temperature gradient is warm to cool from proximal ankle to distal digit bilateral. Nonpitting edema appreciated to the bilateral lower extremity. Neurological: Light touch intact. Protective sensation is diminished. Dermatological: Full-thickness ulceration to the lateral aspect of the right ankle measuring 1.1 x 1.0 x 0.1 cm. Wound base is granular nature with evidence of small amounts of fibrotic tissue. No active drainage at this time. Webspaces 1 through 4 are clean dry and intact. Toenails 1 through 5 within normal limits. Excision debridement down to and including subcutaneous tissue with a number 3 mm dermal curette to the right lateral ankle without incident. Predebridement measurement was 1.0 x 0.9 x 0.1 cm. Postdebridement measurement is 1.1 x 1.0 x 0.1 cm. EpiFix 18 mm disc was applied to the right ankle full-thickness ulceration with 100% use. First application. The graft site was free and clear of any infection. The wound/skin graft substitute was dressed with nonadherent bandage secured in place with Steri-Strips followed by bolster dressing as well as a single layer Tubigrip. Musculoskeletal: Muscle strength is 5 out of 5 to left lower extremity. Right lower extremity muscle strength is 3 out of 5 with evidence of foot drop. Mild pain to palpation to full-thickness ulceration right ankle. No pain with calf compression. Debridement Note Debridement Note Debridement Free Text: Excision debridement down to and including subcutaneous tissue with a number 3 mm dermal curette to the right lateral ankle without incident. Predebridement measurement was 1.0 x 0.9 x 0.1 cm. Postdebridement measurement is 1.1 x 1.0 x 0.1 cm. EpiFix 18 mm disc was applied to the right ankle full-thickness ulceration with 100% use. First application. The graft site was free and clear of any infection. The wound/skin graft substitute was dressed with nonadherent bandage secured in place with Steri-Strips followed by bolster dressing as well as a single layer Tubigrip. Post-Debridement Measurements and Additional Note: Post-Debridement Measurements/Treatment LUIS DANIEL - Nurse 1 - General Ulcer Assessment Start: 10/27/23 10:23 Freq: Status: Active Protocol: TAVO Activity Type Activity Date Activity User E-sign Co-sign Detail Recorded Client Recorded Date Recorded By Document 10/27/23 10:24 KW Desktop 10/27/23 10:32 KW Document 11/03/23 10:38 RB Desktop 11/03/23 10:41 RB Document 11/10/23 10:18 GM Desktop 11/10/23 10:24 GM Document 11/17/23 10:16 GM Desktop 11/17/23 10:21 GM 10/27/23 11/03/23 11/10/23 10:24 10:38 10:18 WC - Today's Visit Information Type of service Initial Visit Follow-up Visit Follow-up Visit (Physician/CAREER ADVISOR (Physician/CAREER ADVISOR ) ) Arrival Mode Ambulatory, Ambulatory Ambulatory, Walker Walker Transfer Assistance None None Accompanied by Patient Identification Verified (Name & Yes Yes Yes ) Patient Requires Transmission-Based No No Precautions Height and Weight Height 6 ft Weight 210 kg Weight in Pounds 463.0 lbs Body Mass Index (BMI) 62.8 62.8 62.8 BMI Classification Obese Obese Obese BSA - Esvin 3.04 Vital Signs Temperature (97.8 F-99.1 F) 96.0 F L 97 F L 96.7 F L Temperature Source Temporal Temporal Temporal Pulse Rate (60-100) 62 76 55 L Pulse Location Monitor Monitor Monitor Respiratory Rate (12-18) 18 18 16 Respiratory rate source Observation Observation Observation Oxygen Delivery Method Room Air Room Air Blood Pressure (90/60-120/80) 159/88 H 144/85 H 150/73 H Blood Pressure Mean (mm Hg) 111 104 98 Source Monitor Monitor Monitor Position Semi-Fowlers Semi-Fowlers Sitting Blood Pressure Location Left Arm Left Arm Left Arm History Since Last Visit- (Skip if this is Patient's initial visit) Have you changed medications since your No No last visit? Any new allergies or adverse reactions No No Had a fall/change in ADL's that may No No increase risk of falls Signs or symptoms of abuse and/or No No neglect since last visit Have you been in the hospital since your No No last visit? Has dressing in place as prescribed Yes Yes Has compression in place as prescribed Yes Has offloadiing in place as prescribed No Experienced any changes in pain level or No management Left Footwear Regular Shoe Regular Shoe Right Footwear Regular Shoe Regular Shoe Pain Scale: 0-10 Numeric Is Patient Pain Free? Yes Yes Yes Lower Extremity Assessment/ Foot Assessment/ Toe Nail Assessment Left -Posterior Tibial Doppler Inaudible -Dorsalis Pedis Palpable Yes -Dorsalis Pedis Doppler Monophasic -Hair Growth on Legs No -Hair Growth on Toes No -Temperature of Extremity Cool -Capillary Refill Less than 3 Seconds -Thick No -Discolored No -Deformed No -Improper Length & Hygeine No Right -Posterior Tibial Doppler Inaudible -Dorsalis Pedis Palpable Yes -Dorsalis Pedis Doppler Monophasic -Hair Growth on Legs No -Hair Growth on Toes No -Temperature of Extremity Cool -Capillary Refill Less than 3 Seconds -Thick No -Discolored No -Deformed No Neuropathy Assessment Feet - Top Side and Bottom <Entered> (a) Communication Assessment Preferred language Turkmen Water Pump Operator Required No Able to Read Yes Able to Write Yes Communication Tools None Caregiver Communication Skills No Impairment Impairment Right Hearing Abillity Normal Left Hearing Abillity Normal Visual Assistive Devices Glasses Teaching Assessment Preferences Verbal,Written, Demonstration Barriers to Learning None Readiness To Learn Excellent Willingness to Engage in Self Management High Activies Readiness to Engage in Self Management High Activities Anxiety Level Calm Cooperation Cooperative Perception Coherent Interest in Health Problem Asks Questions Education Importance Acknowledges Need Does Patient Smoke tobacco or other Yes substances Smoking Status Current every day smoker Is Patient Diabetic Yes Functional Assessment Recent Decline in Ability to Perform Denies Any Declines, Ambulation Culture/Restorationism/Corporation Officer Cultural/Restorationism Needs that may affect No Treatment Plan Would you allow our hospital car rental service attendant to No meet you for the purpose of spiritual/ emotional support? Corporation Officer to contact place of judaism No 11/17/23 10:16 WC - Today's Visit Information Type of service Follow-up Visit (Physician/CAREER ADVISOR ) Arrival Mode Ambulatory, Walker Transfer Assistance None Accompanied by Patient Identification Verified (Name & Yes ) Patient Requires Transmission-Based Precautions Height and Weight Height Weight Weight in Pounds Body Mass Index (BMI) 62.8 BMI Classification Obese BSA - Esvin Vital Signs Temperature (97.8 F-99.1 F) 95.8 F L Temperature Source Temporal Pulse Rate (60-100) 62 Pulse Location Monitor Respiratory Rate (12-18) 18 Respiratory rate source Observation Oxygen Delivery Method Room Air Blood Pressure (90/60-120/80) 151/101 H Blood Pressure Mean (mm Hg) 117 Source Monitor Position Sitting Blood Pressure Location Right Arm History Since Last Visit- (Skip if this is Patient's initial visit) Have you changed medications since your No last visit? Any new allergies or adverse reactions No Had a fall/change in ADL's that may No increase risk of falls Signs or symptoms of abuse and/or No neglect since last visit Have you been in the hospital since your No last visit? Has dressing in place as prescribed Yes Has compression in place as prescribed Yes Has offloadiing in place as prescribed N/A Experienced any changes in pain level or management Left Footwear Regular Shoe Right Footwear Regular Shoe Pain Scale: 0-10 Numeric Is Patient Pain Free? Yes Lower Extremity Assessment/ Foot Assessment/ Toe Nail Assessment Left -Posterior Tibial Doppler -Dorsalis Pedis Palpable -Dorsalis Pedis Doppler -Hair Growth on Legs -Hair Growth on Toes -Temperature of Extremity -Capillary Refill -Thick -Discolored -Deformed -Improper Length & Hygeine Right -Posterior Tibial Doppler -Dorsalis Pedis Palpable -Dorsalis Pedis Doppler -Hair Growth on Legs -Hair Growth on Toes -Temperature of Extremity -Capillary Refill -Thick -Discolored -Deformed Neuropathy Assessment Feet - Top Side and Bottom Communication Assessment Preferred speech language pathologist assistant Required Able to Read Able to Write Communication Tools Caregiver Communication Skills Impairment Right Hearing Abillity Left Hearing Abillity Visual Assistive Devices Teaching Assessment Preferences Barriers to Learning Readiness To Learn Willingness to Engage in Self Management Activies Readiness to Engage in Self Management Activities Anxiety Level Cooperation Perception Interest in Health Problem Education Importance Does Patient Smoke tobacco or other substances Smoking Status Is Patient Diabetic Functional Assessment Recent Decline in Ability to Perform Culture/Restorationism/Corporation Officer Cultural/Restorationism Needs that may affect Treatment Plan Would you allow our hospital car rental service attendant to meet you for the purpose of spiritual/ emotional support? Corporation Officer to contact place of judaism (a) 1 - + WC - Nurse 1 - General Ulcer Measurement Start: 10/27/23 10:23 Freq: Status: Active Protocol: Activity Type Activity Date Activity User E-sign Co-sign Detail Recorded Client Recorded Date Recorded By Document 10/27/23 10:24 KW Desktop 10/27/23 10:32 KW Document 11/03/23 10:38 RB Desktop 11/03/23 10:41 RB Document 11/10/23 10:18 GM Desktop 11/10/23 10:24 GM Document 11/17/23 10:16 GM Desktop 11/17/23 10:21 10/27/23 11/03/23 11/10/23 10:24 10:38 10:18 Wound Center Nurse 1 #1 RT LAT ANKLE -Combined with other wound No No -Current Size (cm) - Length 1 1.5 3.0 -Current Size (cm) - Width 0.9 1 1.2 -Current Size (cm) - Depth 0.1 0.1 0.3 -Total Square Cm 0.9 1.5 3.60 -Date of Last Picture (Recall this 10/27/23 field) -Photo Taken Yes No -Epithelialization None Present -Tunneling No No -Undermining/Tunneling No No -Circular Undermining No No -Exudate Amt Medium Large Small -Exudate Type Serosanguineous Serosanguineous Serosanguineous -Wound Margin Distinct, Distinct, Distinct, Outline Outline Outline Attached Attached Attached -Granulation Amt Medium (34-66%) Medium (34-66%) Small (1-33%) -Granulation Quality [place] -Slough/Fibrin Yes Yes -Necrosis Amt Medium (34-66%) Medium (34-66%) Small (1-33%) -Necrotic Tissue Type Adherent Slough Adherent Slough Adherent Slough -Structure Exposed N/A -Texture (Essie-wound Skin Appearance) Assessed, Assessed, Assessed Localized Edema Scarring -Moisture (Essie-wound Skin Appearance) Assessed Assessed Assessed, Maceration -Color (Essie-wound Skin Appearance) Assessed, Assessed Assessed Erythema -Temperature (Essie-wound Skin No Abnormality No Abnormality No Abnormality Appearance) (Pt Warm) (Pt Warm) (Pt Warm) -Tenderness on Palpation (Essie-wound No No No Skin Appearance) -Ulcer Cleansing Rinsed/ Wound Cleanser Rinsed/ Irrigated with Irrigated with Saline Saline -Foul Odor after Cleansing No No Yes -Anesthetic Used 5% Lidocaine 5% Lidocaine 5% Lidocaine Gel Gel Gel Right Calf (cm) 35 Right Ankle (cm) 23 11/17/23 10:16 Wound Center Nurse 1 #1 RT LAT ANKLE -Combined with other wound No -Current Size (cm) - Length 0.9 -Current Size (cm) - Width 1.0 -Current Size (cm) - Depth 0.2 -Total Square Cm 0.90 -Date of Last Picture (Recall this field) -Photo Taken No -Epithelialization Small 1-33% -Tunneling No -Undermining/Tunneling No -Circular Undermining No -Exudate Amt Medium -Exudate Type Yellow/Green -Wound Margin Distinct, Outline Attached -Granulation Amt Small (1-33%) -Granulation Quality [place] -Slough/Fibrin Yes -Necrosis Amt Medium (34-66%) -Necrotic Tissue Type Adherent Slough -Structure Exposed N/A -Texture (Essie-wound Skin Appearance) Assessed -Moisture (Essie-wound Skin Appearance) Assessed -Color (Essie-wound Skin Appearance) Assessed, Erythema -Temperature (Essie-wound Skin No Abnormality Appearance) (Pt Warm) -Tenderness on Palpation (Essie-wound No Skin Appearance) -Ulcer Cleansing Rinsed/ Irrigated with Saline -Foul Odor after Cleansing No -Anesthetic Used 5% Lidocaine Gel Right Calf (cm) 35.5 Right Ankle (cm) 23.2 WC - Nurse 2 - General Ulcer CM Notes Start: 10/27/23 10:23 Freq: Status: Active Protocol: Activity Type Activity Date Activity User E-sign Co-sign Detail Recorded Client Recorded Date Recorded By Document 10/27/23 10:46 [employer] 10/27/23 10:54 [employer] Document 11/03/23 11:03 [employer] Laptop 11/03/23 11:08 [employer] Document 11/10/23 10:30 [employer] Laptop 11/10/23 10:43 [employer] Document 11/17/23 10:30 [employer] Laptop 11/17/23 10:32 [employer] 10/27/23 11/03/23 11/10/23 10:46 11:03 10:30 Wound Center Nurse 2 #1 RT LAT ANKLE -Time 10:53 11:04 10:33 -Correct Patient Yes Yes Yes -Correct Side, Site, Position Yes Yes Yes -Correct Procedure Yes Yes Yes -Procedure Performed Yes Yes Yes -Type of Procedure Debridement Debridement Debridement -Clinical Debridement Subcutaneous Subcutaneous Subcutaneous -Tissue Removed Subcutaneous Subcutaneous Subcutaneous -Post Debridement (cm) - Length 1.1 1.0 1.1 -Post Debridement (cm) - Width 1.1 0.9 1.3 -Post Debridement (cm) - Depth 0.2 0.2 0.2 -Total Square (Post) (cm) 1.21 0.90 1.43 -Area of Debridement (cm) - Length 1.1 1.0 1.1 -Area of Debridement (cm) - Width 1.1 0.9 1.3 -Total Square (Area) (cm) 1.21 0.90 1.43 -Tunneling No No No -Undermining/Tunneling No No No -Circular Undermining No No No -Wound/Ulcer Outcome Not Healed Not Healed Not Healed -Ulcer Cleansing Rinsed/ Rinsed/ Rinsed/ Irrigated with Irrigated with Irrigated with Saline Saline Saline -Foul Odor after Cleansing No No No -Bioengineered Tissue No No No -Type of Bioengineered Tissue -Expiration Date -Product Lot Number -Percent Used -Lot number of Saline Used -Bleeding Controlled with Pressure Pressure Pressure -Treatment Response Procedure Procedure Procedure Tolerated Well Tolerated Well Tolerated Well -Offloading No No No -Assistive Device(s) Wheelchair -Debridement - Subq, 1st 20sq cm Yes Yes Yes -Apply Skin Sub - 1st 25 sq cm - Legs -Epifix 18mm Disc Pain Scale: 0-10 Numeric Is Patient Pain Free? Yes Yes Yes 11/17/23 10:30 Wound Center Nurse 2 #1 RT LAT ANKLE -Time 10:30 -Correct Patient Yes -Correct Side, Site, Position Yes -Correct Procedure Yes -Procedure Performed Yes -Type of Procedure Debridement -Clinical Debridement Subcutaneous -Tissue Removed Subcutaneous -Post Debridement (cm) - Length 1.1 -Post Debridement (cm) - Width 1.0 -Post Debridement (cm) - Depth 0.1 -Total Square (Post) (cm) 1.10 -Area of Debridement (cm) - Length 1.1 -Area of Debridement (cm) - Width 1.0 -Total Square (Area) (cm) 1.10 -Tunneling No -Undermining/Tunneling No -Circular Undermining No -Wound/Ulcer Outcome Not Healed -Ulcer Cleansing Rinsed/ Irrigated with Saline -Foul Odor after Cleansing No -Bioengineered Tissue Yes -Type of Bioengineered Tissue Epifix 18mm Disc -Expiration Date 05/26/28 -Product Lot Number [id number] -Percent Used 100 -Lot number of Saline Used [id number] -Bleeding Controlled with Pressure -Treatment Response Procedure Tolerated Well -Offloading No -Assistive Device(s) -Debridement - Subq, 1st 20sq cm No -Apply Skin Sub - 1st 25 sq cm - Legs 1 -Epifix 18mm Disc 3 Pain Scale: 0-10 Numeric Is Patient Pain Free? Yes WC - Nurse 3 - General Ulcer D/C NN Start: 10/27/23 10:23 Freq: Status: Active Protocol: Activity Type Activity Date Activity User E-sign Co-sign Detail Recorded Client Recorded Date Recorded By Document 10/27/23 11:00 RB Desktop 10/27/23 11:03 RB Document 11/03/23 11:23 RB Desktop 11/03/23 11:24 RB Document 11/10/23 11:02 RB Desktop 11/10/23 11:03 RB 10/27/23 11/03/23 11/10/23 11:00 11:23 11:02 Wound Care Center Nurse 3 #1 RT LAT ANKLE -Ulcer Cleansing Wound Cleanser Rinsed/ Rinsed/ Irrigated with Irrigated with Saline Saline -Primary Dressing Applied Mepilex Border Mepilex Border Mepilex Border -Other Dressing hydrogel hydrogel / hydrogel moistened gauze -Primary Dressing Covered/Secured with Dry Gauze,Dry Gauze & Roll Gauze,Secured with Tape -Mepilex Border 1 1 1 Right -Tubular Bandage Single Layer -Size of Tubigrip Used Size E -Size E ($) 1 Treatment Response Procedure Procedure Procedure Tolerated Well Tolerated Well Tolerated Well Pain Scale: 0-10 Numeric Is Patient Pain Free? Yes Yes Yes WC - Visit Discharge Discharge Condition Stable Stable Stable Ambulatory Status Ambulatory, Ambulatory Ambulatory, Wheelchair Walker Transportation Private Auto Private Auto Private Auto Medication Reconcilliation completed & No No No provided to patient/care provider Clinical Summary of Care Provided Yes Yes Yes Assessment/Plan Assessment/Plan (1) Non-pressure chronic ulcer of right ankle with fat layer exposed: CODE(S): L97.312 - Non-pressure chronic ulcer of right ankle with fat layer exposed PLAN: Patient was examined and evaluated. All findings were discussed with the patient. All questions were answered to the patient's satisfaction. Excision debridement down to and including subcutaneous tissue with a number 3 mm dermal curette to the right lateral ankle without incident. Predebridement measurement was 1.0 x 0.9 x 0.1 cm. Postdebridement measurement is 1.1 x 1.0 x 0.1 cm. EpiFix 18 mm disc was applied to the right ankle full-thickness ulceration with 100% use. First application. The graft site was free and clear of any infection. The wound/skin graft substitute was dressed with nonadherent bandage secured in place with Steri-Strips followed by bolster dressing as well as a single layer Tubigrip. Patient will keep the right lower extremity dressing clean dry and intact not to remove or get it wet. He was understanding of this. Follow-up at the wound care center with Dr. Etienne in 1 week. (2) Other specified peripheral vascular diseases: CODE(S): I73.89 - Other specified peripheral vascular diseases (3) Foot drop, right: CODE(S): M21.371 - Foot drop, right foot
== END 2023-11-23 23:59 | disposition home or self-care (01) ==
LOC: WC 10:15
PROVIDERS: PCP Nurse Practitioner Family; Referring Provider Nurse Practitioner Family; Visit Provider Podiatrist Foot & Ankle Surgery
DX: L97.312 Non-pressure chronic ulcer of right ankle with fat layer exposed (principal); E11.42 Type 2 diabetes mellitus with diabetic polyneuropathy; F17.200 Nicotine dependence, unspecified, uncomplicated; R60.0 Localized edema; I73.89 Other specified peripheral vascular diseases; M21.371 Foot drop, right foot
CPT/HCPCS: 11042; 15271; 73600; 87070; 87075; 87077; 87101; 87186; 87205; 93923; 93970; 99204; 99214; Q4186; G0463

== ENCOUNTER → 2023-11-25 | Outpatient (CLI) | payer MEDICARE, SELFPAY ==
[2023-11-25 17:17] LABS: Creatinine, Serum 1.17 mg/dL (0.70-1.30); EST Glomerular Filtration Rate 66 mL/min (>60); Est Glom Filt Rate - Afr Amer 80 mL/min (>60)
== END | disposition home or self-care (01) ==
LOC: LAB 15:55
PROVIDERS: PCP Nurse Practitioner Family; Referring Provider Surgery Trauma Surgery; Visit Provider Surgery Trauma Surgery
DX: I70.25 Atherosclerosis of native arteries of other extremities with ulceration (principal)
CPT/HCPCS: 36415; 82565

== ENCOUNTER → 2023-12-08 | Outpatient (CLI) | payer MEDICARE, SELFPAY ==
--- NOTE | 2023-12-08 14:00 | CT_ITS ---
STUDY: CTA OF THE ABDOMINAL AORTA AND BILATERAL LOWER EXTREMITIES REASON FOR EXAM: Male, 68 years old patient with atherosclerosis with ulceration right lower extremity. RADIATION DOSAGE (If Supplied By Facility): CTDIvol = ( 10.42 ) mGy, DLP = ( 1874.35 ) mGycm TECHNIQUE: Axial CT angiography multi-detector data acquisition was obtained from the bases to bilateral feet following intravenous administration of 100 mL of IV Isovue-370. Axial images and MIP images were reconstructed from the axial data set. Post-processing of the angiographic images was performed, with multiplanar reformation and 3D reconstruction. Individualized dose optimization techniques were used for this CT. TECHNICAL QUALITY: Good COMPARISON: None. Descriptors of Narrowing: None (0%) Mild (< 50%) Moderate (50-70%) Severe (70-90%) Subtotal/Total Occlusion (90-100%) Non-Evaluable (technically non-diagnostic FINDINGS: Abdominal aorta: There is mild diffuse narrowing. Celiac and superior mesenteric arteries: No demonstrated narrowing. Inferior mesenteric artery: There is mild diffuse narrowing. Right renal artery(arteries): No demonstrated narrowing. Left renal artery(arteries): No demonstrated narrowing. Right common iliac artery: There is complete thrombosis of the right common iliac artery. Right external iliac artery: There is moderate diffuse narrowing. Right internal iliac artery: There is thrombosis of the internal iliac artery. Left common iliac artery: There is mild diffuse narrowing. Left external iliac artery: No demonstrated narrowing. Left internal iliac artery: No demonstrated narrowing. RIGHT LOWER EXTREMITY Right common femoral artery: No demonstrated narrowing. Right profundus femoris: No demonstrated narrowing. Right superficial femoral: There is complete thrombosis of the distal right femoral artery. Right popliteal artery: There is mild diffuse narrowing. Right tibioperoneal trunk: No demonstrated narrowing. Right anterior tibial artery: Probably thrombosed Right posterior tibial artery: Probably thrombosed. Right peroneal artery: Probably thrombosed. LEFT LOWER EXTREMITY Left common femoral artery: There is mild diffuse narrowing. Left profundus femoris: No demonstrated narrowing. Left superficial femoral: There is mild diffuse narrowing. Left popliteal artery: No demonstrated narrowing. Left tibioperoneal trunk: No demonstrated narrowing. Left anterior tibial artery: There is mild diffuse narrowing, with visualization of the vessel to the distal calf. Left posterior tibial artery: There is moderate diffuse narrowing, with visualization of the vessel to the distal calf. Left peroneal artery: There is moderate diffuse narrowing, with visualization of the vessel to the distal calf. ABDOMINAL AND PELVIC FINDINGS: The visualized lung bases are unremarkable. The visualized portions of the heart are within normal limits. Normal liver. There are multiple gallstones. Normal spleen. Normal pancreas. There appears to be left adrenal hyperplasia. Right adrenal gland has a grossly normal appearance. Normal right kidney. Normal left kidney. Normal visualized stomach. There is no obvious dilated bowel, ascites or pneumoperitoneum. Small bowel has a grossly normal appearance. There is stool and/or gas visible throughout the colon. There are multiple sigmoid colon diverticula. The appendix is visualized and appears normal. There is diffuse atherosclerotic calcification of the abdominal aorta, without a demonstrated aneurysm. Normal inferior vena cava. Normal retroperitoneum. Normal urinary bladder. There are prostatic calcifications. There is a right-sided inguinal hernia containing adipose tissue. There are diffuse degenerative changes of the visualized spine. The patient has had a total left hip arthroplasty. CT/CTA Abd w/Runoff W/WO Contrast IMPRESSION: 1. 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 2. Thrombosis of the distal right superficial femoral artery. 3. Probable thrombosis of all the arteries of the right calf. 4. Cholelithiasis. 5. Colonic diverticulosis. Electronically Signed: Tori Silvestre MD at 3:23 EDT ,
== END | disposition home or self-care (01) ==
LOC: CT 13:59
PROVIDERS: PCP Nurse Practitioner Family; Referring Provider Surgery Trauma Surgery; Visit Provider Surgery Trauma Surgery
DX: I73.9 Peripheral vascular disease, unspecified (principal); I74.5 Embolism and thrombosis of iliac artery; I74.8 Embolism and thrombosis of other arteries; K80.20 Calculus of gallbladder without cholecystitis without obstruction; K57.90 Diverticulosis of intestine, part unspecified, without perforation or abscess without bleeding
CPT/HCPCS: 75635; Q9967; A4216

== ENCOUNTER 2023-12-22 10:15 | Outpatient (RCR) | payer MEDICARE, SELFPAY ==
[2023-11-24 00:09] VITALS: BP 151/101; PULSE 62; RESP 18; TEMP 35.4; BMI 62.8
[2023-11-24 10:18] VITALS: BP 158/94; PULSE 42; RESP 18; BMI 62.8
--- NOTE | 2023-11-24 11:27 | PCM.WC.PN ---
History of Present Illness Date of Service: 11/24/23 Chief Complaint: Right ankle ulceration History of Wound: Chronic right ankle wound Subjective Subjective Mr. Hernandez is a 68-year-old male presenting to clinic today for follow-up evaluation of right lateral ankle full-thickness ulceration. Patient is scheduled to see the vascular surgeon on 11/25/2023 at 3 PM. Patient has been doing home dressing changes and states he notices good improvement to his wound to the right ankle. Denies trauma. Denies constitutional symptoms. Other pedal complaints at this time. Objective Data Objective Data Vital Signs: Vital Signs Temp Pulse Resp BP O2 Del Method 95.8 F L 42 L 18 158/94 H Room Air 11/24/23 00:09 11/24/23 10:18 11/24/23 10:18 11/24/23 10:18 11/24/23 10:18 Oxygen Delivery Method Room Air Weight: 210 kg Body Mass Index (BMI) 62.8 Physical Exam Narrative Vascular: DP and PT pulses are palpable. CFT is brisk. Skin temperature gradient is warm to cool from proximal ankle to distal digit bilateral. Nonpitting edema appreciated to the bilateral lower extremity. Neurological: Light touch intact. Protective sensation is diminished. Dermatological: Full-thickness ulceration to the lateral aspect of the right ankle measuring 1.0 x 0.9 x 0.1 cm. Wound base is granular nature with evidence of small amounts of fibrotic tissue. No active drainage at this time. Webspaces 1 through 4 are clean dry and intact. Toenails 1 through 5 within normal limits. Excision debridement down to and including subcutaneous tissue with a number 3 mm dermal curette to the right lateral ankle without incident. Predebridement measurement was 0.9 x 0.8 x 0.1 cm. Postdebridement measurement is 1.0 x 0.9 x 0.1 cm. EpiFix 18 mm disc was applied to the right ankle full-thickness ulceration with 100% use. Second application. The graft site was free and clear of any infection. The wound/skin graft substitute was dressed with nonadherent bandage secured in place with Steri-Strips followed by bolster dressing as well as a single layer Tubigrip. Musculoskeletal: Muscle strength is 5 out of 5 to left lower extremity. Right lower extremity muscle strength is 3 out of 5 with evidence of foot drop. Mild pain to palpation to full-thickness ulceration right ankle. No pain with calf compression. Debridement Note Debridement Note Debridement Free Text: Excision debridement down to and including subcutaneous tissue with a number 3 mm dermal curette to the right lateral ankle without incident. Predebridement measurement was 0.9 x 0.8 x 0.1 cm. Postdebridement measurement is 1.0 x 0.9 x 0.1 cm. EpiFix 18 mm disc was applied to the right ankle full-thickness ulceration with 100% use. Second application. The graft site was free and clear of any infection. The wound/skin graft substitute was dressed with nonadherent bandage secured in place with Steri-Strips followed by bolster dressing as well as a single layer Tubigrip. Post-Debridement Measurements and Additional Note: Post-Debridement Measurements/Treatment - Nurse 1 - General Ulcer Assessment Start: 11/24/23 10:18 Freq: Status: Active Protocol: LUIS [email or web address] Activity Type Activity Date Activity User E-sign Co-sign Detail Recorded Client Recorded Date Recorded By Document 11/24/23 10:18 KW Desktop 11/24/23 10:24 KW 11/24/23 10:18 - Today's Visit Information Type of service Follow-up Visit (Physician/DIRECTOR OF PHYSICAL SECURITY ) Arrival Mode Ambulatory, Walker Patient Identification Verified (Name & Yes ) Height and Weight Body Mass Index (BMI) 62.8 BMI Classification Obese Vital Signs Pulse Rate (60-100) 42 L Pulse Location Monitor Respiratory Rate (12-18) 18 Respiratory rate source Observation Oxygen Delivery Method Room Air Blood Pressure (90/60-120/80) 158/94 H Blood Pressure Mean (mm Hg) 115 Source Monitor Position Supine Blood Pressure Location Left Arm History Since Last Visit- (Skip if this is Patient's initial visit) Have you changed medications since your No last visit? Any new allergies or adverse reactions No Had a fall/change in ADL's that may No increase risk of falls Signs or symptoms of abuse and/or No neglect since last visit Have you been in the hospital since your No last visit? Has dressing in place as prescribed Yes Has compression in place as prescribed Yes Has offloadiing in place as prescribed No Experienced any changes in pain level or No management Left Footwear Regular Shoe Right Footwear Regular Shoe Pain Scale: 0-10 Numeric Is Patient Pain Free? Yes - Nurse 1 - General Ulcer Measurement Start: 11/24/23 10:18 Freq: Status: Active Protocol: Activity Type Activity Date Activity User E-sign Co-sign Detail Recorded Client Recorded Date Recorded By Document 11/24/23 10:18 KW Desktop 11/24/23 10:24 KW 11/24/23 10:18 Wound Center Nurse 1 #1 RT LAT ANKLE -Current Size (cm) - Length 1.2 -Current Size (cm) - Width 1 -Current Size (cm) - Depth 0.2 -Total Square Cm 1.2 -Exudate Amt Medium -Exudate Type Serosanguineous -Wound Margin Distinct, Outline Attached -Granulation Amt Large (67-100%) -Granulation Quality [place] -Necrosis Amt Small (1-33%) -Necrotic Tissue Type Adherent Slough -Texture (Essie-wound Skin Appearance) Assessed, Localized Edema -Moisture (Essie-wound Skin Appearance) Assessed -Color (Essie-wound Skin Appearance) Assessed, Erythema -Temperature (Essie-wound Skin No Abnormality Appearance) (Pt Warm) -Tenderness on Palpation (Essie-wound No Skin Appearance) -Ulcer Cleansing Soap and Water -Foul Odor after Cleansing No -Anesthetic Used 5% Lidocaine Gel Right Calf (cm) 34.5 Right Ankle (cm) 22 WC - Nurse 2 - General Ulcer CM Notes Start: 11/24/23 10:18 Freq: Status: Active Protocol: Activity Type Activity Date Activity User E-sign Co-sign Detail Recorded Client Recorded Date Recorded By Document 11/24/23 10:32 Laptop 11/24/23 10:35 11/24/23 10:32 Wound Center Nurse 2 #1 RT LAT ANKLE -Time 10:33 -Correct Patient Yes -Correct Side, Site, Position Yes -Correct Procedure Yes -Procedure Performed Yes -Type of Procedure Debridement -Clinical Debridement Subcutaneous -Tissue Removed Subcutaneous -Post Debridement (cm) - Length 1.0 -Post Debridement (cm) - Width 0.9 -Post Debridement (cm) - Depth 0.1 -Total Square (Post) (cm) 0.90 -Area of Debridement (cm) - Length 1.0 -Area of Debridement (cm) - Width 0.9 -Total Square (Area) (cm) 0.90 -Tunneling No -Undermining/Tunneling No -Circular Undermining No -Wound/Ulcer Outcome Not Healed -Ulcer Cleansing Rinsed/ Irrigated with Saline -Foul Odor after Cleansing No -Bioengineered Tissue Yes -Type of Bioengineered Tissue Epifix 18mm Disc -Expiration Date 06/25/28 -Product Lot Number [id number] -Percent Used 100 -Lot number of Saline Used [id number] -Bleeding Controlled with Pressure -Treatment Response Procedure Not Tolerated Well -Offloading No -Debridement - Subq, 1st 20sq cm No -Apply Skin Sub - 1st 25 sq cm - Legs 1 -Epifix 18mm Disc 3 Pain Scale: 0-10 Numeric Is Patient Pain Free? Yes - Nurse 3 - General Ulcer D/C NN Start: 11/24/23 10:18 Freq: Status: Active Protocol: Activity Type Activity Date Activity User E-sign Co-sign Detail Recorded Client Recorded Date Recorded By Document 11/24/23 10:36 Laptop 11/24/23 10:36 11/24/23 10:36 Wound Care Center Nurse 3 #1 RT LAT ANKLE -Ulcer Cleansing Rinsed/ Irrigated with Saline -Foul Odor after Cleansing No -Primary Dressing Applied Mepilex Border -Primary Dressing Covered/Secured with Dry Gauze -Mepilex Border 1 Right -Tubular Bandage Single Layer -Size of Tubigrip Used Size D -Size D ($) 1 Pain Scale: 0-10 Numeric Is Patient Pain Free? Yes - Visit Discharge Discharge Condition Stable Ambulatory Status Ambulatory Transportation Private Auto Medication Reconcilliation completed & Yes provided to patient/care provider Clinical Summary of Care Provided Yes Assessment/Plan Assessment/Plan (1) Non-pressure chronic ulcer of right ankle with fat layer exposed: CODE(S): L97.312 - Non-pressure chronic ulcer of right ankle with fat layer exposed PLAN: Patient was examined and evaluated. All findings were discussed with the patient. All questions were answered to the patient's satisfaction. Excision debridement down to and including subcutaneous tissue with a number 3 mm dermal curette to the right lateral ankle without incident. Predebridement measurement was 0.9 x 0.8 x 0.1 cm. Postdebridement measurement is 1.0 x 0.9 x 0.1 cm. EpiFix 18 mm disc was applied to the right ankle full-thickness ulceration with 100% use. Second application. The graft site was free and clear of any infection. The wound/skin graft substitute was dressed with nonadherent bandage secured in place with Steri-Strips followed by bolster dressing as well as a single layer Tubigrip. Follow-up at the wound care center with Dr. Etienne in 1 week. (2) Other specified peripheral vascular diseases: CODE(S): I73.89 - Other specified peripheral vascular diseases
[2023-12-01 10:00] VITALS: BP 158/60; PULSE 69; RESP 18; TEMP 36.3; BMI 62.8
--- NOTE | 2023-12-01 10:44 | PN.PCM_ITS ---
History of Present Illness Date of Service: 12/01/23 Chief Complaint: Right ankle ulceration History of Wound: Chronic right ankle wound Subjective Subjective Mr. Lane is a 68-year-old male presenting to clinic today for follow-up evaluation of right lateral ankle full-thickness ulceration. Patient met with vascular surgery and had his consultation but is unsure if he was to move forward with any type of intervention. But he will think about it. Patient has kept his right ankle dressing clean dry and intact. Denies trauma. Denies constitutional symptoms. Other pedal complaints at this time. Objective Data Objective Data Vital Signs: Vital Signs Temp Pulse Resp BP O2 Del Method 97.4 F L 69 18 158/60 H Room Air 12/01/23 10:00 12/01/23 10:00 12/01/23 10:00 12/01/23 10:12/01/23 10:00 Oxygen Delivery Method Room Air Weight: 210 kg Body Mass Index (BMI) 62.8 Physical Exam Narrative Vascular: DP and PT pulses are palpable. CFT is brisk. Skin temperature gradient is warm to cool from proximal ankle to distal digit bilateral. Nonpitting edema appreciated to the bilateral lower extremity. Neurological: Light touch intact. Protective sensation is diminished. Dermatological: Full-thickness ulceration to the lateral aspect of the right ankle measuring 0.9 x 1.0 x 0.1 cm. Wound base is granular nature with evidence of small amounts of fibrotic tissue. No active drainage at this time. Webspaces 1 through 4 are clean dry and intact. Toenails 1 through 5 within normal limits. Excision debridement down to and including subcutaneous tissue with a number 3 mm dermal curette to the right lateral ankle without incident. Predebridement measurement was 0.8 x 0.9 x 0.1 cm. Postdebridement measurement is 0.9 x 1.0 x 0.1 cm. EpiFix 18 mm disc was applied to the right ankle full-thickness ulceration with 100% use. Third application. The graft site was free and clear of any infection. The wound/skin graft substitute was dressed with nonadherent bandage secured in place with Steri-Strips followed by bolster dressing as well as a single layer Tubigrip. Musculoskeletal: Muscle strength is 5 out of 5 to left lower extremity. Right lower extremity muscle strength is 3 out of 5 with evidence of foot drop. Mild pain to palpation to full-thickness ulceration right ankle. No pain with calf compression. Debridement Note Debridement Note Debridement Free Text: Excision debridement down to and including subcutaneous tissue with a number 3 mm dermal curette to the right lateral ankle without incident. Predebridement measurement was 0.8 x 0.9 x 0.1 cm. Postdebridement measurement is 0.9 x 1.0 x 0.1 cm. EpiFix 18 mm disc was applied to the right ankle full-thickness ulceration with 100% use. Third application. The graft site was free and clear of any infection. The wound/skin graft substitute was dressed with nonadherent bandage secured in place with Steri-Strips followed by bolster dressing as well as a single layer Tubigrip. Post-Debridement Measurements and Additional Note: Post-Debridement Measurements/Treatment WC - Nurse 1 - General Ulcer Assessment Start: 11/24/23 10:18 Freq: Status: Active Protocol: WC.LOWEXT Activity Type Activity Date Activity User E-sign Co-sign Detail Recorded Client Recorded Date Recorded By Document 11/24/23 10:18 KW Desktop 11/24/23 10:24 KW Document 12/01/23 10:00 KW Desktop 12/01/23 10:08 KW 11/24/23 12/01/23 10:18 10:00 WC - Today's Visit Information Type of service Follow-up Visit Follow-up Visit (Physician/DAIRY SCIENTIST (Physician/DAIRY SCIENTIST ) ) Arrival Mode Ambulatory, Ambulatory, Walker Walker Patient Identification Verified (Name & Yes Yes ) Height and Weight Body Mass Index (BMI) 62.8 62.8 BMI Classification Obese Obese Vital Signs Temperature (97.8 F-99.1 F) 97.4 F L Temperature Source Temporal Pulse Rate (60-100) 42 L 69 Pulse Location Monitor Monitor Respiratory Rate (12-18) 18 18 Respiratory rate source Observation Observation Oxygen Delivery Method Room Air Room Air Blood Pressure (90/60-120/80) 158/94 H 158/60 H Blood Pressure Mean (mm Hg) 115 92 Source Monitor Monitor Position Supine Semi-Fowlers Blood Pressure Location Left Arm Left Arm History Since Last Visit- (Skip if this is Patient's initial visit) Have you changed medications since your No No last visit? Any new allergies or adverse reactions No No Had a fall/change in ADL's that may No No increase risk of falls Signs or symptoms of abuse and/or No No neglect since last visit Have you been in the hospital since your No Yes last visit? Has dressing in place as prescribed Yes Yes Has compression in place as prescribed Yes Yes Has offloadiing in place as prescribed No N/A Experienced any changes in pain level or No No management Left Footwear Regular Shoe Regular Shoe Right Footwear Regular Shoe Regular Shoe Pain Scale: 0-10 Numeric Is Patient Pain Free? Yes Yes WC - Nurse 1 - General Ulcer Measurement Start: 11/24/23 10:18 Freq: Status: Active Protocol: Activity Type Activity Date Activity User E-sign Co-sign Detail Recorded Client Recorded Date Recorded By Document 11/24/23 10:18 KW Desktop 11/24/23 10:24 KW Document 12/01/23 10:00 KW Desktop 12/01/23 10:08 KW 11/24/23 12/01/23 10:18 10:00 Wound Center Nurse 1 #1 RT LAT ANKLE -Current Size (cm) - Length 1.2 1 -Current Size (cm) - Width 1 1 -Current Size (cm) - Depth 0.2 0.1 -Total Square Cm 1.2 1 -Exudate Amt Medium Medium -Exudate Type Serosanguineous Yellow/Green -Wound Margin Distinct, Distinct, Outline Outline Attached Attached -Granulation Amt Large (67-100%) Medium (34-66%) -Granulation Quality [place] -Necrosis Amt Small (1-33%) Small (1-33%) -Necrotic Tissue Type Adherent Slough Adherent Slough -Texture (Essie-wound Skin Appearance) Assessed, Assessed Localized Edema -Moisture (Essie-wound Skin Appearance) Assessed Assessed, Maceration -Color (Essie-wound Skin Appearance) Assessed, Assessed Erythema -Temperature (Essie-wound Skin No Abnormality No Abnormality Appearance) (Pt Warm) (Pt Warm) -Tenderness on Palpation (Essie-wound No No Skin Appearance) -Ulcer Cleansing Soap and Water Soap and Water -Foul Odor after Cleansing No No -Anesthetic Used 5% Lidocaine 5% Lidocaine Gel Gel Right Calf (cm) 34.5 36.5 Right Ankle (cm) 22 23.5 WC - Nurse 2 - General Ulcer CM Notes Start: 11/24/23 10:18 Freq: Status: Active Protocol: Activity Type Activity Date Activity User E-sign Co-sign Detail Recorded Client Recorded Date Recorded By Document 11/24/23 10:32 Laptop 11/24/23 10:35 Document 12/01/23 10:20 DS Desktop 12/01/23 10:26 DS 11/24/23 12/01/23 10:32 10:20 Wound Center Nurse 2 #1 RT LAT ANKLE -Time 10:33 10:20 -Correct Patient Yes Yes -Correct Side, Site, Position Yes Yes -Correct Procedure Yes Yes -Procedure Performed Yes Yes -Type of Procedure Debridement Debridement -Clinical Debridement Subcutaneous Subcutaneous -Tissue Removed Subcutaneous Subcutaneous -Post Debridement (cm) - Length 1.0 0.9 -Post Debridement (cm) - Width 0.9 1.0 -Post Debridement (cm) - Depth 0.1 0.1 -Total Square (Post) (cm) 0.90 0.90 -Area of Debridement (cm) - Length 1.0 0.9 -Area of Debridement (cm) - Width 0.9 1.0 -Total Square (Area) (cm) 0.90 0.90 -Tunneling No No -Undermining/Tunneling No No -Circular Undermining No No -Wound/Ulcer Outcome Not Healed Not Healed -Ulcer Cleansing Rinsed/ Rinsed/ Irrigated with Irrigated with Saline Saline -Foul Odor after Cleansing No -Bioengineered Tissue Yes Yes -Type of Bioengineered Tissue Epifix 18mm Epifix 18mm Disc Disc -Expiration Date 06/25/28 06/25/28 -Product Lot Number [id number] -Percent Used 100 100 -Lot number of Saline Used [id number] -Bleeding Controlled with Pressure Pressure -Treatment Response Procedure Not Procedure Tolerated Well Tolerated Well -Offloading No -Debridement - Subq, 1st 20sq cm No No -Apply Skin Sub - 1st 25 sq cm - Legs 1 1 -Epifix 18mm Disc 3 3 Pain Scale: 0-10 Numeric Is Patient Pain Free? Yes Yes - Nurse 3 - General Ulcer D/C NN Start: 11/24/23 10:18 Freq: Status: Active Protocol: Activity Type Activity Date Activity User E-sign Co-sign Detail Recorded Client Recorded Date Recorded By Document 11/24/23 10:36 Laptop 11/24/23 10:36 JF Document 12/01/23 10:29 KW Desktop 12/01/23 10:29 KW 11/24/23 12/01/23 10:36 10:29 Wound Care Center Nurse 3 #1 RT LAT ANKLE -Ulcer Cleansing Rinsed/ Irrigated with Saline -Foul Odor after Cleansing No -Primary Dressing Applied Mepilex Border Mepilex Border -Primary Dressing Covered/Secured with Dry Gauze -Mepilex Border 1 1 Right -Tubular Bandage Single Layer Single Layer -Size of Tubigrip Used Size D Size E -Size D ($) 1 -Size E ($) 1 Pain Scale: 0-10 Numeric Is Patient Pain Free? Yes Yes WC - Visit Discharge Discharge Condition Stable Stable Ambulatory Status Ambulatory Ambulatory, Walker Transportation Private Auto Private Auto Medication Reconcilliation completed & Yes No provided to patient/care provider Clinical Summary of Care Provided Yes Yes Assessment/Plan Assessment/Plan (1) Non-pressure chronic ulcer of right ankle with fat layer exposed: CODE(S): L97.312 - Non-pressure chronic ulcer of right ankle with fat layer exposed PLAN: Patient was examined and evaluated. All findings were discussed with the patient. All questions were answered to the patient's satisfaction. Excision debridement down to and including subcutaneous tissue with a number 3 mm dermal curette to the right lateral ankle without incident. Predebridement measurement was 0.8 x 0.9 x 0.1 cm. Postdebridement measurement is 0.9 x 1.0 x 0.1 cm. EpiFix 18 mm disc was applied to the right ankle full-thickness ulceration with 100% use. Third application. The graft site was free and clear of any infection. The wound/skin graft substitute was dressed with nonadherent bandage secured in place with Steri-Strips followed by bolster dressing as well as a single layer Tubigrip. Follow-up at the wound care center with Dr. Etienne in 1 week. 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 The right ankle brachial index by the dorsalis pedis is 0.43. The right digital-brachial index is 0.32. The left ankle brachial index by the posterior tibial artery is 0.97. The left ankle brachial index by the dorsalis pedis is 0.92. The left digital-brachial index is 0.82. Venous duplex- left below the knee GSV reflux Vascular will obtain CTA to further define occlusive progress and determine options. Patient will follow up with Dr Weston.
[2023-12-08 13:16] VITALS: BP 139/72; PULSE 78; RESP 20; TEMP 36.3; BMI 62.8
--- NOTE | 2023-12-08 14:06 | PCM.WC.PN ---
History of Present Illness Date of Service: 12/08/23 Chief Complaint: Right ankle ulceration History of Wound: Chronic right ankle wound Subjective Subjective Mr. Lane is a 68-year-old male presenting to clinic today for follow-up evaluation of right lateral ankle full-thickness ulceration. Mr. Lane plans for CTA with Dr. Weston this afternoon. Patient is been great for his care. Denies trauma. Denies constitutional symptoms. No other pedal complaints at this time. Objective Data Objective Data Vital Signs: Vital Signs Temp Pulse Resp BP O2 Del Method 97.3 F L 69 20 H 158/60 H Room Air 12/08/23 13:16 12/01/23 10:00 12/08/23 13:16 12/01/23 10:00 12/01/23 10:00 Oxygen Delivery Method Room Air Weight: 210 kg Body Mass Index (BMI) 62.8 Physical Exam Narrative Vascular: DP and PT pulses are palpable. CFT is brisk. Skin temperature gradient is warm to cool from proximal ankle to distal digit bilateral. Nonpitting edema appreciated to the bilateral lower extremity. Neurological: Light touch intact. Protective sensation is diminished. Dermatological: Full-thickness ulceration to the lateral aspect of the right ankle measuring 0.9 x 0.8 x 0.1 cm. Wound base is granular nature with evidence of small amounts of fibrotic tissue. No active drainage at this time. Webspaces 1 through 4 are clean dry and intact. Toenails 1 through 5 within normal limits. Excision debridement down to and including subcutaneous tissue with a number 3 mm dermal curette to the right lateral ankle without incident. Predebridement measurement was 0.8 x 0.7 x 0.1 cm. Postdebridement measurement is 0.9 x 0.8 x 0.1 cm. EpiFix 18 mm disc was applied to the right ankle full-thickness ulceration with 100% use. Fourth application. The graft site was free and clear of any infection. The wound/skin graft substitute was dressed with nonadherent bandage secured in place with Steri-Strips followed by bolster dressing as well as a single layer Tubigrip. Musculoskeletal: Muscle strength is 5 out of 5 to left lower extremity. Right lower extremity muscle strength is 3 out of 5 with evidence of foot drop. Mild pain to palpation to full-thickness ulceration right ankle. No pain with calf compression. Debridement Note Debridement Note Debridement Free Text: Excision debridement down to and including subcutaneous tissue with a number 3 mm dermal curette to the right lateral ankle without incident. Predebridement measurement was 0.8 x 0.7 x 0.1 cm. Postdebridement measurement is 0.9 x 0.8 x 0.1 cm. EpiFix 18 mm disc was applied to the right ankle full-thickness ulceration with 100% use. Fourth application. The graft site was free and clear of any infection. The wound/skin graft substitute was dressed with nonadherent bandage secured in place with Steri-Strips followed by bolster dressing as well as a single layer Tubigrip. Post-Debridement Measurements and Additional Note: Post-Debridement Measurements/Treatment - Nurse 1 - General Ulcer Assessment Start: 11/24/23 10:18 Freq: Status: Active Protocol: TAVO Activity Type Activity Date Activity User E-sign Co-sign Detail Recorded Client Recorded Date Recorded By Document 11/24/23 10:18 KW Desktop 11/24/23 10:24 KW Document 12/01/23 10:00 KW Desktop 12/01/23 10:08 KW Document 12/08/23 13:16 DL [email or web address] 12/08/23 13:22 DL 11/24/23 12/01/23 12/08/23 10:18 10:00 13:16 - Today's Visit Information Type of service Follow-up Visit Follow-up Visit Follow-up Visit (Physician/TRANSFORMATION COACH (Physician/TRANSFORMATION COACH (Physician/TRANSFORMATION COACH ) ) ) Arrival Mode Ambulatory, Ambulatory, Ambulatory, Walker Walker Walker Transfer Assistance None Patient Identification Verified (Name & Yes Yes Yes ) Patient Requires Transmission-Based No Precautions Height and Weight Body Mass Index (BMI) 62.8 62.8 62.8 BMI Classification Obese Obese Obese Vital Signs Temperature (97.8 F-99.1 F) 97.4 F L 97.3 F L Temperature Source Temporal Temporal Pulse Rate (60-100) 42 L 69 Pulse Location Monitor Monitor Respiratory Rate (12-18) 18 18 20 H Respiratory rate source Observation Observation Observation Oxygen Delivery Method Room Air Room Air Blood Pressure (90/60-120/80) 158/94 H 158/60 H Blood Pressure Mean (mm Hg) 115 92 Source Monitor Monitor Position Supine Semi-Fowlers Blood Pressure Location Left Arm Left Arm History Since Last Visit- (Skip if this is Patient's initial visit) Have you changed medications since your No No No last visit? Any new allergies or adverse reactions No No No Had a fall/change in ADL's that may No No No increase risk of falls Signs or symptoms of abuse and/or No No No neglect since last visit Have you been in the hospital since your No Yes No last visit? Has dressing in place as prescribed Yes Yes Yes Has compression in place as prescribed Yes Yes Yes Has offloadiing in place as prescribed No N/A N/A Experienced any changes in pain level or No No No management Left Footwear Regular Shoe Regular Shoe Regular Shoe Right Footwear Regular Shoe Regular Shoe Regular Shoe Pain Scale: 0-10 Numeric Is Patient Pain Free? Yes Yes Yes WC - Nurse 1 - General Ulcer Measurement Start: 11/24/23 10:18 Freq: Status: Active Protocol: Activity Type Activity Date Activity User E-sign Co-sign Detail Recorded Client Recorded Date Recorded By Document 11/24/23 10:18 KW [place] 11/24/23 10:24 KW Document 12/01/23 10:00 KW [place] 12/01/23 10:08 KW Document 12/08/23 13:16 DL [email or web address] 12/08/23 13:22 DL 11/24/23 12/01/23 12/08/23 10:18 10:00 13:16 Wound Center Nurse 1 #1 RT LAT ANKLE -Current Size (cm) - Length 1.2 1 0.8 -Current Size (cm) - Width 1 1 0.8 -Current Size (cm) - Depth 0.2 0.1 0.1 -Total Square Cm 1.2 1 0.64 -Exudate Amt Medium Medium Medium -Exudate Type Serosanguineous Yellow/Green Serosanguineous -Wound Margin Distinct, Distinct, Distinct, Outline Outline Outline Attached Attached Attached -Granulation Amt Large (67-100%) Medium (34-66%) Medium (34-66%) -Granulation Quality [place] -Necrosis Amt Small (1-33%) Small (1-33%) Medium (34-66%) -Necrotic Tissue Type Adherent Slough Adherent Slough Adherent Slough -Structure Exposed N/A -Texture (Essie-wound Skin Appearance) Assessed, Assessed Scarring Localized Edema -Moisture (Essie-wound Skin Appearance) Assessed Assessed, No Abnormality Maceration -Color (Essie-wound Skin Appearance) Assessed, Assessed No Abnormality Erythema -Temperature (Essie-wound Skin No Abnormality No Abnormality No Abnormality Appearance) (Pt Warm) (Pt Warm) (Pt Warm) -Tenderness on Palpation (Essie-wound No No Skin Appearance) -Ulcer Cleansing Soap and Water Soap and Water Soap and Water -Foul Odor after Cleansing No No No -Anesthetic Used 5% Lidocaine 5% Lidocaine 5% Lidocaine Gel Gel Gel Right Calf (cm) 34.5 36.5 35.5 Right Ankle (cm) 22 23.5 22.4 WC - Nurse 2 - General Ulcer CM Notes Start: 11/24/23 10:18 Freq: Status: Active Protocol: Activity Type Activity Date Activity User E-sign Co-sign Detail Recorded Client Recorded Date Recorded By Document 11/24/23 10:32 Laptop 11/24/23 10:35 Document 12/01/23 10:20 DS Desktop 12/01/23 10:26 DS Document 12/08/23 13:26 [id number] 12/08/23 13:32 11/24/23 12/01/23 12/08/23 10:32 10:20 13:26 Wound Center Nurse 2 #1 RT LAT ANKLE -Time 10:33 10:20 13:27 -Correct Patient Yes Yes Yes -Correct Side, Site, Position Yes Yes Yes -Correct Procedure Yes Yes Yes -Procedure Performed Yes Yes Yes -Type of Procedure Debridement Debridement Debridement -Clinical Debridement Subcutaneous Subcutaneous Subcutaneous -Tissue Removed Subcutaneous Subcutaneous Subcutaneous -Post Debridement (cm) - Length 1.0 0.9 0.9 -Post Debridement (cm) - Width 0.9 1.0 0.8 -Post Debridement (cm) - Depth 0.1 0.1 0.1 -Total Square (Post) (cm) 0.90 0.90 0.72 -Area of Debridement (cm) - Length 1.0 0.9 0.9 -Area of Debridement (cm) - Width 0.9 1.0 0.8 -Total Square (Area) (cm) 0.90 0.90 0.72 -Tunneling No No No -Undermining/Tunneling No No No -Circular Undermining No No No -Wound/Ulcer Outcome Not Healed Not Healed Not Healed -Ulcer Cleansing Rinsed/ Rinsed/ Rinsed/ Irrigated with Irrigated with Irrigated with Saline Saline Saline -Foul Odor after Cleansing No No -Bioengineered Tissue Yes Yes Yes -Type of Bioengineered Tissue Epifix 18mm Epifix 18mm Epifix 18mm Disc Disc Disc -Expiration Date 06/25/28 06/25/28 06/25/28 -Product Lot Number [id number] -Percent Used 100 100 100 -Lot number of Saline Used [id number] -Bleeding Controlled with Pressure Pressure Pressure -Treatment Response Procedure Not Procedure Procedure Tolerated Well Tolerated Well Tolerated Well -Offloading No No -Debridement - Subq, 1st 20sq cm No No No -Apply Skin Sub - 1st 25 sq cm - Legs 1 1 1 -Epifix 18mm Disc 3 3 3 Pain Scale: 0-10 Numeric Is Patient Pain Free? Yes Yes Yes - Nurse 3 - General Ulcer D/C NN Start: 11/24/23 10:18 Freq: Status: Active Protocol: Activity Type Activity Date Activity User E-sign Co-sign Detail Recorded Client Recorded Date Recorded By Document 11/24/23 10:36 Laptop 11/24/23 10:36 Document 12/01/23 10:29 Desktop 12/01/23 10:29 11/24/23 12/01/23 10:36 10:29 Wound Care Center Nurse 3 #1 RT LAT ANKLE -Ulcer Cleansing Rinsed/ Irrigated with Saline -Foul Odor after Cleansing No -Primary Dressing Applied Mepilex Border Mepilex Border -Primary Dressing Covered/Secured with Dry Gauze -Mepilex Border 1 1 Right -Tubular Bandage Single Layer Single Layer -Size of Tubigrip Used Size D Size E -Size D ($) 1 -Size E ($) 1 Pain Scale: 0-10 Numeric Is Patient Pain Free? Yes Yes - Visit Discharge Discharge Condition Stable Stable Ambulatory Status Ambulatory Ambulatory, Walker Transportation Private Auto Private Auto Medication Reconcilliation completed & Yes No provided to patient/care provider Clinical Summary of Care Provided Yes Yes Assessment/Plan Assessment/Plan (1) Non-pressure chronic ulcer of right ankle with fat layer exposed: CODE(S): L97.312 - Non-pressure chronic ulcer of right ankle with fat layer exposed PLAN: Patient was examined and evaluated. All findings were discussed with the patient. All questions were answered to the patient's satisfaction. Excision debridement down to and including subcutaneous tissue with a number 3 mm dermal curette to the right lateral ankle without incident. Predebridement measurement was 0.8 x 0.7 x 0.1 cm. Postdebridement measurement is 0.9 x 0.8 x 0.1 cm. EpiFix 18 mm disc was applied to the right ankle full-thickness ulceration with 100% use. Fourth application. The graft site was free and clear of any infection. The wound/skin graft substitute was dressed with nonadherent bandage secured in place with Steri-Strips followed by bolster dressing as well as a single layer Tubigrip. Follow-up at the wound care center with Dr. Etienne in 1 week. 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 Weston today to evaluate the right lower extremity.
[2023-12-15 10:22] VITALS: BP 119/82; PULSE 58; RESP 18; TEMP 36.1; BMI 62.8
--- NOTE | 2023-12-15 11:37 | PCM.WC.PN ---
History of Present Illness Date of Service: 12/15/23 Chief Complaint: Right ankle ulceration History of Wound: Chronic right ankle wound Subjective Subjective Mr. Hernandez is a 68-year-old male presenting to clinic today for follow-up evaluation of bilateral full-thickness ulceration with application of skin graft substitute. Patient did have a CTA and is waiting results with Dr. Weston. Patient is doing well with his wound care. Denies trauma. Denies constitutional symptoms. No other pedal complaints at this time. Objective Data Objective Data Vital Signs: Vital Signs Temp Pulse Resp BP O2 Del Method 96.9 F L 58 L 18 119/82 H Room Air 12/15/23 10:22 12/15/23 10:22 12/15/23 10:12/15/23 10:12/15/23 10:22 Oxygen Delivery Method Room Air Weight: 210 kg Body Mass Index (BMI) 62.8 Physical Exam Narrative Vascular: DP and PT pulses are palpable. CFT is brisk. Skin temperature gradient is warm to cool from proximal ankle to distal digit bilateral. Nonpitting edema appreciated to the bilateral lower extremity. Neurological: Light touch intact. Protective sensation is diminished. Dermatological: Full-thickness ulceration to the lateral aspect of the right ankle measuring 0.9 x 0.8 x 0.1 cm. Wound base is granular nature with evidence of small amounts of fibrotic tissue. No active drainage at this time. Webspaces 1 through 4 are clean dry and intact. Toenails 1 through 5 within normal limits. Excision debridement down to and including subcutaneous tissue with a number 3 mm dermal curette to the right lateral ankle without incident. Predebridement measurement was 0.8 x 0.7 x 0.1 cm. Postdebridement measurement is 0.9 x 0.8 x 0.1 cm. EpiFix 18 mm disc was applied to the right ankle full-thickness ulceration with 100% use. Fifth application. The graft site was free and clear of any infection. The wound/skin graft substitute was dressed with nonadherent bandage secured in place with Steri-Strips followed by bolster dressing as well as a single layer Tubigrip. Musculoskeletal: Muscle strength is 5 out of 5 to left lower extremity. Right lower extremity muscle strength is 3 out of 5 with evidence of foot drop. Mild pain to palpation to full-thickness ulceration right ankle. No pain with calf compression. Debridement Note Debridement Note Debridement Free Text: Excision debridement down to and including subcutaneous tissue with a number 3 mm dermal curette to the right lateral ankle without incident. Predebridement measurement was 0.8 x 0.7 x 0.1 cm. Postdebridement measurement is 0.9 x 0.8 x 0.1 cm. EpiFix 18 mm disc was applied to the right ankle full-thickness ulceration with 100% use. Fifth application. The graft site was free and clear of any infection. The wound/skin graft substitute was dressed with nonadherent bandage secured in place with Steri-Strips followed by bolster dressing as well as a single layer Tubigrip. Post-Debridement Measurements and Additional Note: Post-Debridement Measurements/Treatment - Nurse 1 - General Ulcer Assessment Start: 11/24/23 10:18 Freq: Status: Active Protocol: .LOWEXT Activity Type Activity Date Activity User E-sign Co-sign Detail Recorded Client Recorded Date Recorded By Document 11/24/23 10:18 KW Desktop 11/24/23 10:24 KW Document 12/01/23 10:00 KW Desktop 12/01/23 10:08 KW Document 12/08/23 13:16 DL [email or web address] 12/08/23 13:22 DL Edit Result 12/08/23 13:16 DL (1) [id number] 12/08/23 14:27 JF Document 12/15/23 10:22 KW wound center 12/15/23 10:27 KW (1) Pulse Rate (60-100) => 78 Pulse Location => Monitor Blood Pressure (90/60-120/80) => 139/72 H Blood Pressure Mean (mm Hg) => 94 Source => Monitor 11/24/23 12/01/23 12/08/23 10:18 10:00 13:16 - Today's Visit Information Type of service Follow-up Visit Follow-up Visit Follow-up Visit (Physician/ECOSYSTEM ECOLOGY PROFESSOR (Physician/ECOSYSTEM ECOLOGY PROFESSOR (Physician/ECOSYSTEM ECOLOGY PROFESSOR ) ) ) Arrival Mode Ambulatory, Ambulatory, Ambulatory, Walker Walker Walker Transfer Assistance None Accompanied by Patient Identification Verified (Name & Yes Yes Yes ) Patient Requires Transmission-Based No Precautions Height and Weight Body Mass Index (BMI) 62.8 62.8 62.8 BMI Classification Obese Obese Obese Vital Signs Temperature (97.8 F-99.1 F) 97.4 F L 97.3 F L Temperature Source Temporal Temporal Pulse Rate (60-100) 42 L 69 78 Pulse Location Monitor Monitor Monitor Respiratory Rate (12-18) 18 18 20 H Respiratory rate source Observation Observation Observation Oxygen Delivery Method Room Air Room Air Blood Pressure (90/60-120/80) 158/94 H 158/60 H 139/72 H Blood Pressure Mean (mm Hg) 115 92 94 Source Monitor Monitor Monitor Position Supine Semi-Fowlers Blood Pressure Location Left Arm Left Arm History Since Last Visit- (Skip if this is Patient's initial visit) Have you changed medications since your No No No last visit? Any new allergies or adverse reactions No No No Had a fall/change in ADL's that may No No No increase risk of falls Signs or symptoms of abuse and/or No No No neglect since last visit Have you been in the hospital since your No Yes No last visit? Has dressing in place as prescribed Yes Yes Yes Has compression in place as prescribed Yes Yes Yes Has offloadiing in place as prescribed No N/A N/A Experienced any changes in pain level or No No No management Left Footwear Regular Shoe Regular Shoe Regular Shoe Right Footwear Regular Shoe Regular Shoe Regular Shoe Pain Scale: 0-10 Numeric Is Patient Pain Free? Yes Yes Yes 12/15/23 10:22 WC - Today's Visit Information Type of service Follow-up Visit (Physician/ECOSYSTEM ECOLOGY PROFESSOR ) Arrival Mode Ambulatory, Walker Transfer Assistance Accompanied by Patient Identification Verified (Name & Yes ) Patient Requires Transmission-Based Precautions Height and Weight Body Mass Index (BMI) 62.8 BMI Classification Obese Vital Signs Temperature (97.8 F-99.1 F) 96.9 F L Temperature Source Temporal Pulse Rate (60-100) 58 L Pulse Location Monitor Respiratory Rate (12-18) 18 Respiratory rate source Observation Oxygen Delivery Method Room Air Blood Pressure (90/60-120/80) 119/82 H Blood Pressure Mean (mm Hg) 94 Source Monitor Position Semi-Fowlers Blood Pressure Location Left Arm History Since Last Visit- (Skip if this is Patient's initial visit) Have you changed medications since your No last visit? Any new allergies or adverse reactions No Had a fall/change in ADL's that may No increase risk of falls Signs or symptoms of abuse and/or No neglect since last visit Have you been in the hospital since your No last visit? Has dressing in place as prescribed Yes Has compression in place as prescribed Yes Has offloadiing in place as prescribed N/A Experienced any changes in pain level or No management Left Footwear Regular Shoe Right Footwear Regular Shoe Pain Scale: 0-10 Numeric Is Patient Pain Free? Yes WC - Nurse 1 - General Ulcer Measurement Start: 11/24/23 10:18 Freq: Status: Active Protocol: Activity Type Activity Date Activity User E-sign Co-sign Detail Recorded Client Recorded Date Recorded By Document 11/24/23 10:18 KW Desktop 11/24/23 10:24 KW Document 12/01/23 10:00 KW Desktop 12/01/23 10:08 KW Document 12/08/23 13:16 DL [email or web address] 12/08/23 13:22 DL Document 12/15/23 10:22 KW wound center 12/15/23 10:27 KW 11/24/23 12/01/23 12/08/23 10:18 10:00 13:16 Wound Center Nurse 1 #1 RT LAT ANKLE -Current Size (cm) - Length 1.2 1 0.8 -Current Size (cm) - Width 1 1 0.8 -Current Size (cm) - Depth 0.2 0.1 0.1 -Total Square Cm 1.2 1 0.64 -Exudate Amt Medium Medium Medium -Exudate Type Serosanguineous Yellow/Green Serosanguineous -Wound Margin Distinct, Distinct, Distinct, Outline Outline Outline Attached Attached Attached -Granulation Amt Large (67-100%) Medium (34-66%) Medium (34-66%) -Granulation Quality [place] -Necrosis Amt Small (1-33%) Small (1-33%) Medium (34-66%) -Necrotic Tissue Type Adherent Slough Adherent Slough Adherent Slough -Structure Exposed N/A -Texture (Essie-wound Skin Appearance) Assessed, Assessed Scarring Localized Edema -Moisture ([place]-wound Skin Appearance) Assessed Assessed, No Abnormality Maceration -Color ([place]-wound Skin Appearance) Assessed, Assessed No Abnormality Erythema -Temperature ([place]-wound Skin No Abnormality No Abnormality No Abnormality Appearance) (Pt Warm) (Pt Warm) (Pt Warm) -Tenderness on Palpation ([place]-wound No No Skin Appearance) -Ulcer Cleansing Soap and Water Soap and Water Soap and Water -Foul Odor after Cleansing No No No -Anesthetic Used 5% Lidocaine 5% Lidocaine 5% Lidocaine Gel Gel Gel Right Calf (cm) 34.5 36.5 35.5 Right Ankle (cm) 22 23.5 22.4 12/15/23 10:22 Wound Center Nurse 1 #1 RT LAT ANKLE -Current Size (cm) - Length 1 -Current Size (cm) - Width 0.9 -Current Size (cm) - Depth 0.1 -Total Square Cm 0.9 -Exudate Amt Small -Exudate Type Yellow/Green -Wound Margin Distinct, Outline Attached -Granulation Amt Medium (34-66%) -Granulation Quality [place] -Necrosis Amt Medium (34-66%) -Necrotic Tissue Type Adherent Slough -Structure Exposed -Texture ([place]ie-wound Skin Appearance) Assessed, Localized Edema -Moisture ([place]-wound Skin Appearance) Assessed -Color ([place]-wound Skin Appearance) Assessed -Temperature ([place]-wound Skin No Abnormality Appearance) (Pt Warm) -Tenderness on Palpation ([place]ie-wound No Skin Appearance) -Ulcer Cleansing Rinsed/ Irrigated with Saline -Foul Odor after Cleansing -Anesthetic Used 5% Lidocaine Gel Right Calf (cm) 37.5 Right Ankle (cm) 22.5 WC - Nurse 2 - General Ulcer CM Notes Start: 11/24/23 10:18 Freq: Status: Active Protocol: Activity Type Activity Date Activity User E-sign Co-sign Detail Recorded Client Recorded Date Recorded By Document 11/24/23 10:32 Laptop 11/24/23 10:35 Document 12/01/23 10:20 Desktop 12/01/23 10:26 DS Document 12/08/23 13:26 JF [id number] 12/08/23 13:32 JF Document 12/15/23 10:43 JF [id number] 12/15/23 10:48 Edit Result 12/15/23 10:43 JF (1) [id number] 12/15/23 10:49 JF (1) #1 RT LAT ANKLE - Type of Bioengineered Tissue => Epifix 18mm Disc - Expiration Date => 06/25/28 - Product Lot Number => [id number] - Percent Used => 100 - Lot number of Saline Used => [id number] 11/24/23 12/01/23 12/08/23 10:32 10:20 13:26 Wound Center Nurse 2 #1 RT LAT ANKLE -Time 10:33 10:20 13:27 -Correct Patient Yes Yes Yes -Correct Side, Site, Position Yes Yes Yes -Correct Procedure Yes Yes Yes -Procedure Performed Yes Yes Yes -Type of Procedure Debridement Debridement Debridement -Clinical Debridement Subcutaneous Subcutaneous Subcutaneous -Tissue Removed Subcutaneous Subcutaneous Subcutaneous -Post Debridement (cm) - Length 1.0 0.9 0.9 -Post Debridement (cm) - Width 0.9 1.0 0.8 -Post Debridement (cm) - Depth 0.1 0.1 0.1 -Total Square (Post) (cm) 0.90 0.90 0.72 -Area of Debridement (cm) - Length 1.0 0.9 0.9 -Area of Debridement (cm) - Width 0.9 1.0 0.8 -Total Square (Area) (cm) 0.90 0.90 0.72 -Tunneling No No No -Undermining/Tunneling No No No -Circular Undermining No No No -Wound/Ulcer Outcome Not Healed Not Healed Not Healed -Ulcer Cleansing Rinsed/ Rinsed/ Rinsed/ Irrigated with Irrigated with Irrigated with Saline Saline Saline -Foul Odor after Cleansing No No -Bioengineered Tissue Yes Yes Yes -Type of Bioengineered Tissue Epifix 18mm Epifix 18mm Epifix 18mm Disc Disc Disc -Expiration Date 06/25/28 06/25/28 06/25/28 -Product Lot Number [id number] -Percent Used 100 100 100 -Lot number of Saline Used [id number] -Bleeding Controlled with Pressure Pressure Pressure -Treatment Response Procedure Not Procedure Procedure Tolerated Well Tolerated Well Tolerated Well -Offloading No No -Debridement - Subq, 1st 20sq cm No No No -Apply Skin Sub - 1st 25 sq cm - Legs 1 1 1 -Epifix 18mm Disc 3 3 3 Pain Scale: 0-10 Numeric Is Patient Pain Free? Yes Yes Yes 12/15/23 10:43 Wound Center Nurse 2 #1 RT LAT ANKLE -Time 10:44 -Correct Patient Yes -Correct Side, Site, Position Yes -Correct Procedure Yes -Procedure Performed Yes -Type of Procedure Debridement -Clinical Debridement Subcutaneous -Tissue Removed Subcutaneous -Post Debridement (cm) - Length 0.9 -Post Debridement (cm) - Width 0.8 -Post Debridement (cm) - Depth 0.1 -Total Square (Post) (cm) 0.72 -Area of Debridement (cm) - Length 0.9 -Area of Debridement (cm) - Width 0.8 -Total Square (Area) (cm) 0.72 -Tunneling No -Undermining/Tunneling No -Circular Undermining No -Wound/Ulcer Outcome Not Healed -Ulcer Cleansing Rinsed/ Irrigated with Saline -Foul Odor after Cleansing No -Bioengineered Tissue Yes -Type of Bioengineered Tissue Epifix 18mm Disc -Expiration Date 06/25/28 -Product Lot Number [id number] -Percent Used 100 -Lot number of Saline Used [id number] -Bleeding Controlled with Pressure -Treatment Response Procedure Tolerated Well -Offloading No -Debridement - Subq, 1st 20sq cm No -Apply Skin Sub - 1st 25 sq cm - Legs 1 -Epifix 18mm Disc 3 Pain Scale: 0-10 Numeric Is Patient Pain Free? Yes WC - Nurse 3 - General Ulcer D/C NN Start: 11/24/23 10:18 Freq: Status: Active Protocol: Activity Type Activity Date Activity User E-sign Co-sign Detail Recorded Client Recorded Date Recorded By Document 11/24/23 10:36 Laptop 11/24/23 10:36 Document 12/01/23 10:29 KW Desktop 12/01/23 10:29 KW Document 12/15/23 10:53 KW wound center 12/15/23 10:54 KW 11/24/23 12/01/23 12/15/23 10:36 10:29 10:53 Wound Care Center Nurse 3 #1 RT LAT ANKLE -Ulcer Cleansing Rinsed/ Irrigated with Saline -Foul Odor after Cleansing No -Primary Dressing Applied Mepilex Border Mepilex Border Mepilex Border -Primary Dressing Covered/Secured with Dry Gauze -Mepilex Border 1 1 1 Right -Tubular Bandage Single Layer Single Layer Single Layer -Size of Tubigrip Used Size D Size E Size E -Size D ($) 1 -Size E ($) 1 1 Pain Scale: 0-10 Numeric Is Patient Pain Free? Yes Yes Yes WC - Visit Discharge Discharge Condition Stable Stable Stable Ambulatory Status Ambulatory Ambulatory, Ambulatory, Walker Walker Transportation Private Auto Private Auto Private Auto Medication Reconcilliation completed & Yes No No provided to patient/care provider Clinical Summary of Care Provided Yes Yes Yes Assessment/Plan Assessment/Plan (1) Non-pressure chronic ulcer of right ankle with fat layer exposed: CODE(S): L97.312 - Non-pressure chronic ulcer of right ankle with fat layer exposed PLAN: Patient was examined and evaluated. All findings were discussed with the patient. All questions were answered to the patient's satisfaction. Excision debridement down to and including subcutaneous tissue with a number 3 mm dermal curette to the right lateral ankle without incident. Predebridement measurement was 0.8 x 0.7 x 0.1 cm. Postdebridement measurement is 0.9 x 0.8 x 0.1 cm. EpiFix 18 mm disc was applied to the right ankle full-thickness ulceration with 100% use. Fifth application. The graft site was free and clear of any infection. The wound/skin graft substitute was dressed with nonadherent bandage secured in place with Steri-Strips followed by bolster dressing as well as a single layer Tubigrip. Follow-up at the wound care center with Dr. Etienne in 1 week. 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
[2023-12-22 10:36] VITALS: BP 161/70; PULSE 49; RESP 18; TEMP 36.3; BMI 62.8
--- NOTE | 2023-12-22 11:15 | PN.PCM_ITS ---
History of Present Illness Date of Service: 12/22/23 Chief Complaint: Right ankle ulceration History of Wound: Chronic right ankle wound Subjective Subjective Mr. Lane is a 68-year-old male presenting to clinic today for follow-up evaluation of right lateral ankle full-thickness ulceration. Plan for vascular intervention would be a bypass to the right leg. Patient is unsure if he wants to move forward with surgery but will continue to discuss with vascular surgery. Patient has left his dressing clean dry and intact. He continues to ambulate with regular shoe gear and walker. Patient also admits to quitting smoking for 1 week now. He denies trauma. Denies constitutional symptoms. No other pedal complaints at this time. Objective Data Objective Data Vital Signs: Vital Signs Temp Pulse Resp BP O2 Del Method 97.3 F L 49 L 18 161/70 H Room Air 12/22/23 10:36 12/22/23 10:36 12/22/23 10:36 12/22/23 10:36 12/22/23 10:36 Oxygen Delivery Method Room Air Weight: 210 kg Body Mass Index (BMI) 62.8 Physical Exam Narrative Vascular: DP and PT pulses are palpable. CFT is brisk. Skin temperature gradient is warm to cool from proximal ankle to distal digit bilateral. Nonpitting edema appreciated to the bilateral lower extremity. Neurological: Light touch intact. Protective sensation is diminished. Dermatological: Full-thickness ulceration to the lateral aspect of the right ankle measuring 0.8 x 0.8 x 0.1 cm. Wound base is granular nature with evidence of small amounts of fibrotic tissue. No active drainage at this time. Webspaces 1 through 4 are clean dry and intact. Toenails 1 through 5 within normal limits. Excision debridement down to and including subcutaneous tissue with a number 3 mm dermal curette to the right lateral ankle without incident. Predebridement measurement was 0.7 x 0.7 x 0.1 cm. Postdebridement measurement is 0.8 x 0.8 x 0.1 cm. EpiFix 18 mm disc was applied to the right ankle full-thickness ulceration with 100% use. Fifth application. The graft site was free and clear of any infection. The wound/skin graft substitute was dressed with nonadherent bandage secured in place with Steri-Strips followed by bolster dressing as well as a single layer Tubigrip. Musculoskeletal: Muscle strength is 5 out of 5 to left lower extremity. Right lower extremity muscle strength is 3 out of 5 with evidence of foot drop. Mild pain to palpation to full-thickness ulceration right ankle. No pain with calf compression. Debridement Note Debridement Note Debridement Free Text: EpiFix 18 mm disc was applied to the right ankle full- thickness ulceration with 100% use. Fifth application. The graft site was free and clear of any infection. The wound/skin graft substitute was dressed with nonadherent bandage secured in place with Steri-Strips followed by bolster dressing as well as a single layer Tubigrip. Post-Debridement Measurements and Additional Note: Post-Debridement Measurements/Treatment - Nurse 1 - General Ulcer Assessment Start: 11/24/23 10:18 Freq: Status: Active Protocol: TAVO Activity Type Activity Date Activity User E-sign Co-sign Detail Recorded Client Recorded Date Recorded By Document 11/24/23 10:18 KW Desktop 11/24/23 10:24 KW Document 12/01/23 10:00 KW Desktop 12/01/23 10:08 KW Document 12/08/23 13:16 DL [id number] 12/08/23 13:22 DL Edit Result 12/08/23 13:16 DL (1) [id number] 12/08/23 14:27 JF Document 12/15/23 10:22 KW wound center 12/15/23 10:27 KW Document 12/22/23 10:36 GM wc 12/22/23 10:47 GM (1) Pulse Rate (60-100) => 78 Pulse Location => Monitor Blood Pressure (90/60-120/80) => 139/72 H Blood Pressure Mean (mm Hg) => 94 Source => Monitor 11/24/23 12/01/23 12/08/23 10:18 10:00 13:16 - Today's Visit Information Type of service Follow-up Visit Follow-up Visit Follow-up Visit (Physician/LITHOGRAPH PRESS OPERATOR [facility] (Physician/LITHOGRAPH PRESS OPERATOR [facility] (Physician/LITHOGRAPH PRESS OPERATOR [employer] ) ) ) Arrival Mode Ambulatory, Ambulatory, Ambulatory, Walker Walker Walker Transfer Assistance None Accompanied by Patient Identification Verified (Name & Yes Yes Yes ) Patient Requires Transmission-Based No Precautions Height and Weight Body Mass Index (BMI) 62.8 62.8 62.8 BMI Classification Obese Obese Obese Vital Signs Temperature (97.8 F-99.1 F) 97.4 F L 97.3 F L Temperature Source Temporal Temporal Pulse Rate (60-100) 42 L 69 78 Pulse Location Monitor Monitor Monitor Respiratory Rate (12-18) 18 18 20 H Respiratory rate source Observation Observation Observation Oxygen Delivery Method Room Air Room Air Blood Pressure (90/60-120/80) 158/94 H 158/60 H 139/72 H Blood Pressure Mean (mm Hg) 115 92 94 Source Monitor Monitor Monitor Position Supine Semi-Fowlers Blood Pressure Location Left Arm Left Arm History Since Last Visit- (Skip if this is Patient's initial visit) Have you changed medications since your No No No last visit? Any new allergies or adverse reactions No No No Had a fall/change in ADL's that may No No No increase risk of falls Signs or symptoms of abuse and/or No No No neglect since last visit Have you been in the hospital since your No Yes No last visit? Has dressing in place as prescribed Yes Yes Yes Has compression in place as prescribed Yes Yes Yes Has offloadiing in place as prescribed No N/A N/A Experienced any changes in pain level or No No No management Left Footwear Regular Shoe Regular Shoe Regular Shoe Right Footwear Regular Shoe Regular Shoe Regular Shoe Pain Scale: 0-10 Numeric Is Patient Pain Free? Yes Yes Yes 12/15/23 12/22/23 10:22 10:36 WC - Today's Visit Information Type of service Follow-up Visit Follow-up Visit (Physician/LITHOGRAPH PRESS OPERATOR [facility] (Physician/LITHOGRAPH PRESS OPERATOR [employer] ) ) Arrival Mode Ambulatory, Ambulatory Walker Transfer Assistance None Accompanied by Patient Identification Verified (Name & Yes Yes ) Patient Requires Transmission-Based No Precautions Height and Weight Body Mass Index (BMI) 62.8 62.8 BMI Classification Obese Obese Vital Signs Temperature (97.8 F-99.1 F) 96.9 F L 97.3 F L Temperature Source Temporal Oral Pulse Rate (60-100) 58 L 49 L Pulse Location Monitor Monitor Respiratory Rate (12-18) 18 18 Respiratory rate source Observation Observation Oxygen Delivery Method Room Air Room Air Blood Pressure (90/60-120/80) 119/82 H 161/70 H Blood Pressure Mean (mm Hg) 94 100 Source Monitor Monitor Position Semi-Fowlers Supine Blood Pressure Location Left Arm Left Arm History Since Last Visit- (Skip if this is Patient's initial visit) Have you changed medications since your No No last visit? Any new allergies or adverse reactions No No Had a fall/change in ADL's that may No No increase risk of falls Signs or symptoms of abuse and/or No No neglect since last visit Have you been in the hospital since your No No last visit? Has dressing in place as prescribed Yes Yes Has compression in place as prescribed Yes Yes Has offloadiing in place as prescribed N/A Experienced any changes in pain level or No management Left Footwear Regular Shoe Right Footwear Regular Shoe Pain Scale: 0-10 Numeric Is Patient Pain Free? Yes Yes - Nurse 1 - General Ulcer Measurement Start: 11/24/23 10:18 Freq: Status: Active Protocol: Activity Type Activity Date Activity User E-sign Co-sign Detail Recorded Client Recorded Date Recorded By Document 11/24/23 10:18 KW Desktop 11/24/23 10:24 KW Document 12/01/23 10:00 KW Desktop 12/01/23 10:08 KW Document 12/08/23 13:16 DL [email or web address] 12/08/23 13:22 DL Document 12/15/23 10:22 KW wound center 12/15/23 10:27 KW Document 12/22/23 10:36 GM 12/22/23 10:47 GM 11/24/23 12/01/23 12/08/23 10:18 10:00 13:16 Wound Center Nurse 1 #1 RT LAT ANKLE -Current Size (cm) - Length 1.2 1 0.8 -Current Size (cm) - Width 1 1 0.8 -Current Size (cm) - Depth 0.2 0.1 0.1 -Total Square Cm 1.2 1 0.64 -Photo Taken -Epithelialization -Tunneling -Undermining/Tunneling -Circular Undermining -Exudate Amt Medium Medium Medium -Exudate Type Serosanguineous Yellow/Green Serosanguineous -Wound Margin Distinct, Distinct, Distinct, Outline Outline Outline Attached Attached Attached -Granulation Amt Large (67-100%) Medium (34-66%) Medium (34-66%) -Granulation Quality [place] -Slough/Fibrin -Necrosis Amt Small (1-33%) Small (1-33%) Medium (34-66%) -Necrotic Tissue Type Adherent Slough Adherent Slough Adherent Slough -Structure Exposed N/A -Texture (Essie-wound Skin Appearance) Assessed, Assessed Scarring Localized Edema -Moisture ([place]ie-wound Skin Appearance) Assessed Assessed, No Abnormality Maceration -Color (Essie-wound Skin Appearance) Assessed, Assessed No Abnormality Erythema -Temperature ([place]ie-wound Skin No Abnormality No Abnormality No Abnormality Appearance) (Pt Warm) (Pt Warm) (Pt Warm) -Tenderness on Palpation ([place]ie-wound No No Skin Appearance) -Ulcer Cleansing Soap and Water Soap and Water Soap and Water -Foul Odor after Cleansing No No No -Anesthetic Used 5% Lidocaine 5% Lidocaine 5% Lidocaine Gel Gel Gel Right Calf (cm) 34.5 36.5 35.5 Right Ankle (cm) 22 23.5 22.4 12/15/23 12/22/23 10:22 10:36 Wound Center Nurse 1 #1 RT LAT ANKLE -Current Size (cm) - Length 1 0.9 -Current Size (cm) - Width 0.9 0.9 -Current Size (cm) - Depth 0.1 0.1 -Total Square Cm 0.9 0.81 -Photo Taken No -Epithelialization Small 1-33% -Tunneling No -Undermining/Tunneling No -Circular Undermining No -Exudate Amt Small Small -Exudate Type Yellow/Green Yellow/Green -Wound Margin Distinct, Distinct, Outline Outline Attached Attached -Granulation Amt Medium (34-66%) Medium (34-66%) -Granulation Quality [place] -Slough/Fibrin Yes -Necrosis Amt Medium (34-66%) Small (1-33%) -Necrotic Tissue Type Adherent Slough -Structure Exposed -Texture ([place]ie-wound Skin Appearance) Assessed, Assessed Localized Edema -Moisture ([place]-wound Skin Appearance) Assessed Assessed -Color ([place]-wound Skin Appearance) Assessed Assessed -Temperature ([place]-wound Skin No Abnormality No Abnormality Appearance) (Pt Warm) (Pt Warm) -Tenderness on Palpation ([place]ie-wound No No Skin Appearance) -Ulcer Cleansing Rinsed/ Soap and Water Irrigated with Saline -Foul Odor after Cleansing No -Anesthetic Used 5% Lidocaine 5% Lidocaine Gel Gel Right Calf (cm) 37.5 Right Ankle (cm) 22.5 WC - Nurse 2 - General Ulcer CM Notes Start: 05/01/24 10:18 Freq: Status: Active Protocol: Activity Type Activity Date Activity User E-sign Co-sign Detail Recorded Client Recorded Date Recorded By Document 11/24/23 10:32 JF Laptop 11/24/23 10:35 JF Document 12/01/23 10:20 DS Desktop 12/01/23 10:26 DS Document 12/08/23 13:26 JF [id number] 12/08/23 13:32 JF Document 12/15/23 10:43 JF [id number] 12/15/23 10:48 JF Edit Result 12/15/23 10:43 JF (1) [id number] 12/15/23 10:49 JF Document 12/22/23 10:53 JF [id number] 12/22/23 10:59 JF (1) #1 RT LAT ANKLE - Type of Bioengineered Tissue => Epifix 18mm Disc - Expiration Date => 06/25/28 - Product Lot Number => [id number] - Percent Used => 100 - Lot number of Saline Used => [id number] 11/24/23 12/01/23 12/08/23 10:32 10:20 13:26 Wound Center Nurse 2 #1 RT LAT ANKLE -Time 10:33 10:20 13:27 -Correct Patient Yes Yes Yes -Correct Side, Site, Position Yes Yes Yes -Correct Procedure Yes Yes Yes -Procedure Performed Yes Yes Yes -Type of Procedure Debridement Debridement Debridement -Clinical Debridement Subcutaneous Subcutaneous Subcutaneous -Tissue Removed Subcutaneous Subcutaneous Subcutaneous -Post Debridement (cm) - Length 1.0 0.9 0.9 -Post Debridement (cm) - Width 0.9 1.0 0.8 -Post Debridement (cm) - Depth 0.1 0.1 0.1 -Total Square (Post) (cm) 0.90 0.90 0.72 -Area of Debridement (cm) - Length 1.0 0.9 0.9 -Area of Debridement (cm) - Width 0.9 1.0 0.8 -Total Square (Area) (cm) 0.90 0.90 0.72 -Tunneling No No No -Undermining/Tunneling No No No -Circular Undermining No No No -Wound/Ulcer Outcome Not Healed Not Healed Not Healed -Ulcer Cleansing Rinsed/ Rinsed/ Rinsed/ Irrigated with Irrigated with Irrigated with Saline Saline Saline -Foul Odor after Cleansing No No -Bioengineered Tissue Yes Yes Yes -Type of Bioengineered Tissue Epifix 18mm Epifix 18mm Epifix 18mm Disc Disc Disc -Expiration Date 06/25/28 06/25/28 06/25/28 -Product Lot Number [id number] -Percent Used 100 100 100 -Lot number of Saline Used [id number] -Bleeding Controlled with Pressure Pressure Pressure -Treatment Response Procedure Not Procedure Procedure Tolerated Well Tolerated Well Tolerated Well -Offloading No No -Debridement - Subq, 1st 20sq cm No No No -Apply Skin Sub - 1st 25 sq cm - Legs 1 1 1 -Epifix 18mm Disc 3 3 3 Pain Scale: 0-10 Numeric Is Patient Pain Free? Yes Yes Yes 12/15/23 12/22/23 10:43 10:53 Wound Center Nurse 2 #1 RT LAT ANKLE -Time 10:44 10:53 -Correct Patient Yes Yes -Correct Side, Site, Position Yes Yes -Correct Procedure Yes Yes -Procedure Performed Yes Yes -Type of Procedure Debridement Debridement -Clinical Debridement Subcutaneous Subcutaneous -Tissue Removed Subcutaneous Subcutaneous -Post Debridement (cm) - Length 0.9 0.8 -Post Debridement (cm) - Width 0.8 0.8 -Post Debridement (cm) - Depth 0.1 0.1 -Total Square (Post) (cm) 0.72 0.64 -Area of Debridement (cm) - Length 0.9 0.8 -Area of Debridement (cm) - Width 0.8 0.8 -Total Square (Area) (cm) 0.72 0.64 -Tunneling No No -Undermining/Tunneling No No -Circular Undermining No No -Wound/Ulcer Outcome Not Healed Not Healed -Ulcer Cleansing Rinsed/ Rinsed/ Irrigated with Irrigated with Saline Saline -Foul Odor after Cleansing No No -Bioengineered Tissue Yes Yes -Type of Bioengineered Tissue Epifix 18mm Epifix 18mm Disc Disc -Expiration Date 06/25/28 06/25/28 -Product Lot Number [id number] -Percent Used 100 100 -Lot number of Saline Used [id number] -Bleeding Controlled with Pressure Pressure -Treatment Response Procedure Procedure Tolerated Well Tolerated Well -Offloading No No -Debridement - Subq, 1st 20sq cm No No -Apply Skin Sub - 1st 25 sq cm - Legs 1 1 -Epifix 18mm Disc 3 3 Pain Scale: 0-10 Numeric Is Patient Pain Free? Yes Yes - Nurse 3 - General Ulcer D/C NN Start: 11/24/23 10:18 Freq: Status: Active Protocol: Activity Type Activity Date Activity User E-sign Co-sign Detail Recorded Client Recorded Date Recorded By Document 11/24/23 10:36 Laptop 11/24/23 10:36 [employer] Document 12/01/23 10:29 KW Desktop 12/01/23 10:29 KW Document 12/15/23 10:53 KW wound center 12/15/23 10:54 KW 11/24/23 12/01/23 12/15/23 10:36 10:29 10:53 Wound Care Center Nurse 3 #1 RT LAT ANKLE -Ulcer Cleansing Rinsed/ Irrigated with Saline -Foul Odor after Cleansing No -Primary Dressing Applied Mepilex Border Mepilex Border Mepilex Border -Primary Dressing Covered/Secured with Dry Gauze -Mepilex Border 1 1 1 Right -Tubular Bandage Single Layer Single Layer Single Layer -Size of Tubigrip Used Size D Size E Size E -Size D ($) 1 -Size E ($) 1 1 Pain Scale: 0-10 Numeric Is Patient Pain Free? Yes Yes Yes - Visit Discharge Discharge Condition Stable Stable Stable Ambulatory Status Ambulatory Ambulatory, Ambulatory, Walker Walker Transportation Private Auto Private Auto Private Auto Medication Reconcilliation completed & Yes No No provided to patient/care provider Clinical Summary of Care Provided Yes Yes Yes Assessment/Plan Assessment/Plan (1) Non-pressure chronic ulcer of right ankle with fat layer exposed: CODE(S): L97.312 - Non-pressure chronic ulcer of right ankle with fat layer exposed PLAN: Patient was examined and evaluated. All findings were discussed with the patient. All questions were answered to the patient's satisfaction. Encouraged the patient to continue his non-smoking. EpiFix 18 mm disc was applied to the right ankle full-thickness ulceration with 100% use. Fifth application. The graft site was free and clear of any infection. The wound/skin graft substitute was dressed with nonadherent bandage secured in place with Steri-Strips followed by bolster dressing as well as a single layer Tubigrip. Follow-up at the wound care center with Dr. Etienne in 1 week. 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
== END 2023-12-24 23:59 | disposition home or self-care (01) ==
LOC: WC 10:15
PROVIDERS: PCP Nurse Practitioner Family; Referring Provider Nurse Practitioner Family; Visit Provider Podiatrist Foot & Ankle Surgery
DX: I70.233 Atherosclerosis of native arteries of right leg with ulceration of ankle (principal); I70.25 Atherosclerosis of native arteries of other extremities with ulceration; L97.312 Non-pressure chronic ulcer of right ankle with fat layer exposed; Z87.891 Personal history of nicotine dependence; I73.89 Other specified peripheral vascular diseases
CPT/HCPCS: 15271; Q4186

== ENCOUNTER 2024-01-19 10:15 | Outpatient (RCR) | payer MEDICARE, SELFPAY ==
[2023-12-25 00:26] VITALS: BP 151/101; PULSE 62; RESP 18; TEMP 35.4; BMI 62.8
[2023-12-29 10:41] VITALS: BP 153/106; PULSE 69; RESP 18; TEMP 35.9; BMI 62.8
--- NOTE | 2023-12-29 12:37 | PCM.WC.PN ---
History of Present Illness Date of Service: 12/29/23 Chief Complaint: Right ankle ulceration History of Wound: Chronic right ankle wound Subjective Subjective Mr. Lane is a 68-year-old male presenting to clinic today for follow-up evaluation of right lateral ankle full-thickness ulceration. Plan for vascular intervention would be a bypass to the right leg. Patient is unsure if he wants to move forward with surgery but will continue to discuss with vascular surgery. Patient has left his dressing clean dry and intact. He continues to ambulate with regular shoe gear and walker. Patient also admits to quitting smoking for 1 week now. He denies trauma. Denies constitutional symptoms. No other pedal complaints at this time. Objective Data Objective Data Vital Signs: Vital Signs Temp Pulse Resp BP O2 Del Method 96.7 F L 69 18 153/106 H Room Air 12/29/23 10:41 12/29/23 10:41 12/29/23 10:41 12/29/23 10:41 12/29/23 10:41 Oxygen Delivery Method Room Air Weight: 210 kg Body Mass Index (BMI) 62.8 Physical Exam Narrative Vascular: DP and PT pulses are palpable. CFT is brisk. Skin temperature gradient is warm to cool from proximal ankle to distal digit bilateral. Nonpitting edema appreciated to the bilateral lower extremity. Neurological: Light touch intact. Protective sensation is diminished. Dermatological: Full-thickness ulceration to the lateral aspect of the right ankle measuring 0.8 x 0.7 x 0.1 cm. Wound base is granular nature with evidence of small amounts of fibrotic tissue. No active drainage at this time. Webspaces 1 through 4 are clean dry and intact. Toenails 1 through 5 within normal limits. Excision debridement down to and including subcutaneous tissue with a number 3 mm dermal curette to the right lateral ankle without incident. Predebridement measurement was 0.7 x 0.6 x 0.1 cm. Postdebridement measurement is 0.8 x 0.7 x 0.1 cm. EpiFix 18 mm disc was applied to the right ankle full-thickness ulceration with 100% use. Sixth application. The graft site was free and clear of any infection. The wound/skin graft substitute was dressed with nonadherent bandage secured in place with Steri-Strips followed by bolster dressing as well as a single layer Tubigrip. Musculoskeletal: Muscle strength is 5 out of 5 to left lower extremity. Right lower extremity muscle strength is 3 out of 5 with evidence of foot drop. Mild pain to palpation to full-thickness ulceration right ankle. No pain with calf compression. Debridement Note Debridement Note Debridement Free Text: Excision debridement down to and including subcutaneous tissue with a number 3 mm dermal curette to the right lateral ankle without incident. Predebridement measurement was 0.7 x 0.6 x 0.1 cm. Postdebridement measurement is 0.8 x 0.7 x 0.1 cm. EpiFix 18 mm disc was applied to the right ankle full-thickness ulceration with 100% use. Sixth application. The graft site was free and clear of any infection. The wound/skin graft substitute was dressed with nonadherent bandage secured in place with Steri-Strips followed by bolster dressing as well as a single layer Tubigrip. Post-Debridement Measurements and Additional Note: Post-Debridement Measurements/Treatment - Nurse 1 - General Ulcer Assessment Start: 12/29/23 10:41 Freq: Status: Active Protocol: TAVO Activity Type Activity Date Activity User E-sign Co-sign Detail Recorded Client Recorded Date Recorded By Document 12/29/23 10:41 KW Wound center 12/29/23 10:49 KW 12/29/23 10:41 - Today's Visit Information Type of service Follow-up Visit (Physician/DEFENSE TRAVEL ADMINISTRATOR ) Arrival Mode Ambulatory Patient Identification Verified (Name & Yes ) Height and Weight Body Mass Index (BMI) 62.8 BMI Classification Obese Vital Signs Temperature (97.8 F-99.1 F) 96.7 F L Temperature Source Temporal Pulse Rate (60-100) 69 Pulse Location Monitor Respiratory Rate (12-18) 18 Respiratory rate source Observation Oxygen Delivery Method Room Air Blood Pressure (90/60-120/80) 153/106 H Blood Pressure Mean (mm Hg) 121 Source Monitor Position Semi-Fowlers Blood Pressure Location Left Arm History Since Last Visit- (Skip if this is Patient's initial visit) Have you changed medications since your No last visit? Any new allergies or adverse reactions No Had a fall/change in ADL's that may No increase risk of falls Signs or symptoms of abuse and/or No neglect since last visit Have you been in the hospital since your No last visit? Has dressing in place as prescribed Yes Has compression in place as prescribed Yes Has offloadiing in place as prescribed N/A Experienced any changes in pain level or No management Left Footwear Regular Shoe Right Footwear Regular Shoe Pain Scale: 0-10 Numeric Is Patient Pain Free? Yes WC - Nurse 1 - General Ulcer Measurement Start: 12/29/23 10:41 Freq: Status: Active Protocol: Activity Type Activity Date Activity User E-sign Co-sign Detail Recorded Client Recorded Date Recorded By Document 12/29/23 10:41 Wound center 12/29/23 10:49 12/29/23 10:41 Wound Center Nurse 1 #1 RT LAT ANKLE -Current Size (cm) - Length 1 -Current Size (cm) - Width 1 -Current Size (cm) - Depth 0.2 -Total Square Cm 1 -Date of Last Picture (Recall this 12/29/23 field) -Exudate Amt Small -Exudate Type Serosanguineous -Wound Margin Distinct, Outline Attached -Granulation Amt Large (67-100%) -Granulation Quality [place] -Necrosis Amt Small (1-33%) -Necrotic Tissue Type Adherent Slough -Texture (Essie-wound Skin Appearance) Assessed -Moisture (Essie-wound Skin Appearance) Assessed, Maceration -Color (Essie-wound Skin Appearance) Assessed -Temperature (Essie-wound Skin No Abnormality Appearance) (Pt Warm) -Tenderness on Palpation (Essie-wound No Skin Appearance) -Ulcer Cleansing Soap and Water -Foul Odor after Cleansing No -Anesthetic Used 5% Lidocaine Gel Right Calf (cm) 37.2 WC - Nurse 2 - General Ulcer CM Notes Start: 12/29/23 10:41 Freq: Status: Active Protocol: Activity Type Activity Date Activity User E-sign Co-sign Detail Recorded Client Recorded Date Recorded By Document 12/29/23 11:02 [id number] 12/29/23 11:10 12/29/23 11:02 Wound Center Nurse 2 #1 RT LAT ANKLE -Time 11:03 -Correct Patient Yes -Correct Side, Site, Position Yes -Correct Procedure Yes -Procedure Performed Yes -Type of Procedure Debridement -Clinical Debridement Subcutaneous -Tissue Removed Subcutaneous -Post Debridement (cm) - Length 0.8 -Post Debridement (cm) - Width 0.7 -Post Debridement (cm) - Depth 0.1 -Total Square (Post) (cm) 0.56 -Area of Debridement (cm) - Length 0.8 -Area of Debridement (cm) - Width 0.7 -Total Square (Area) (cm) 0.56 -Tunneling No -Undermining/Tunneling No -Circular Undermining No -Wound/Ulcer Outcome Not Healed -Ulcer Cleansing Rinsed/ Irrigated with Saline -Foul Odor after Cleansing No -Bioengineered Tissue Yes -Type of Bioengineered Tissue Epifix 18mm Disc -Expiration Date 07/26/28 -Product Lot Number [id number] -Percent Used 100 -Lot number of Saline Used [id number] -Bleeding Controlled with Pressure -Treatment Response Procedure Tolerated Well -Offloading No -Debridement - Subq, 1st 20sq cm No -Apply Skin Sub - 1st 25 sq cm - Legs 1 -Epifix 18mm Disc 3 Pain Scale: 0-10 Numeric Is Patient Pain Free? Yes - Nurse 3 - General Ulcer D/C NN Start: 12/29/23 10:41 Freq: Status: Active Protocol: Activity Type Activity Date Activity User E-sign Co-sign Detail Recorded Client Recorded Date Recorded By Document 12/29/23 11:12 Wound center 12/29/23 11:13 12/29/23 11:12 Wound Care Center Nurse 3 #1 RT LAT ANKLE -Primary Dressing Applied Mepilex Border -Mepilex Border 1 Right -Tubular Bandage Single Layer -Size of Tubigrip Used Size E -Size E ($) 1 Pain Scale: 0-10 Numeric Is Patient Pain Free? Yes WC - Visit Discharge Discharge Condition Stable Ambulatory Status Ambulatory, Walker Transportation Private Auto Medication Reconcilliation completed & No provided to patient/care provider Clinical Summary of Care Provided Yes Assessment/Plan Assessment/Plan (1) Non-pressure chronic ulcer of right ankle with fat layer exposed: CODE(S): L97.312 - Non-pressure chronic ulcer of right ankle with fat layer exposed PLAN: Patient was examined and evaluated. All findings were discussed with the patient. All questions were answered to the patient's satisfaction. Excision debridement down to and including subcutaneous tissue with a number 3 mm dermal curette to the right lateral ankle without incident. Predebridement measurement was 0.7 x 0.6 x 0.1 cm. Postdebridement measurement is 0.8 x 0.7 x 0.1 cm. EpiFix 18 mm disc was applied to the right ankle full-thickness ulceration with 100% use. Sixth application. The graft site was free and clear of any infection. The wound/skin graft substitute was dressed with nonadherent bandage secured in place with Steri-Strips followed by bolster dressing as well as a single layer Tubigrip. Follow-up at the wound care center with Dr. Etienne in 2 week. 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
--- NOTE | 2023-12-31 09:11 | WC ---
12/29/2023 RIGHT LATERAL ANKLE
[2024-01-12 10:20] VITALS: BP 168/76; PULSE 57; RESP 16; TEMP 36.1; BMI 62.8
--- NOTE | 2024-01-12 16:12 | PCM.WC.PN ---
History of Present Illness Date of Service: 01/12/24 Chief Complaint: Right ankle ulceration History of Wound: Chronic right ankle wound Subjective Subjective Mr. Lane is a 68-year-old male presenting to clinic today for follow-up evaluation of right lateral ankle full-thickness ulceration. Plan for vascular intervention would be a bypass to the right leg. Patient is unsure if he wants to move forward with surgery but will continue to discuss with vascular surgery. Patient has left his dressing clean dry and intact. He continues to ambulate with regular shoe gear and walker. Patient also admits to quitting smoking for 1 week now. He denies trauma. Denies constitutional symptoms. No other pedal complaints at this time. Objective Data Objective Data Vital Signs: Vital Signs Temp Pulse Resp BP O2 Del Method 96.9 F L 57 L 16 168/76 H Room Air 01/12/24 10:20 01/12/24 10:20 01/12/24 10:20 01/12/24 10:20 01/12/24 10:20 Oxygen Delivery Method Room Air Weight: 210 kg Body Mass Index (BMI) 62.8 Physical Exam Narrative Vascular: DP and PT pulses are palpable. CFT is brisk. Skin temperature gradient is warm to cool from proximal ankle to distal digit bilateral. Nonpitting edema appreciated to the bilateral lower extremity. Neurological: Light touch intact. Protective sensation is diminished. Dermatological: Full-thickness ulceration to the lateral aspect of the right ankle measuring 0.8 x 0.7 x 0.1 cm. Wound base is granular nature with evidence of small amounts of fibrotic tissue. No active drainage at this time. Webspaces 1 through 4 are clean dry and intact. Toenails 1 through 5 within normal limits. Excision debridement down to and including subcutaneous tissue with a number 3 mm dermal curette to the right lateral ankle without incident. Predebridement measurement was 0.5 x 0.5 x 0.1 cm. Postdebridement measurement is 0.6 x 0.4 x 0.1 cm. EpiFix 18 mm disc was applied to the right ankle full-thickness ulceration with 100% use. Seventh application. The graft site was free and clear of any infection. The wound/skin graft substitute was dressed with nonadherent bandage secured in place with Steri-Strips followed by bolster dressing as well as a single layer Tubigrip. Musculoskeletal: Muscle strength is 5 out of 5 to left lower extremity. Right lower extremity muscle strength is 3 out of 5 with evidence of foot drop. Mild pain to palpation to full-thickness ulceration right ankle. No pain with calf compression. Debridement Note Debridement Note Debridement Free Text: Excision debridement down to and including subcutaneous tissue with a number 3 mm dermal curette to the right lateral ankle without incident. Predebridement measurement was 0.5 x 0.5 x 0.1 cm. Postdebridement measurement is 0.6 x 0.4 x 0.1 cm. EpiFix 18 mm disc was applied to the right ankle full-thickness ulceration with 100% use. Seventh application. The graft site was free and clear of any infection. The wound/skin graft substitute was dressed with nonadherent bandage secured in place with Steri-Strips followed by bolster dressing as well as a single layer Tubigrip. Post-Debridement Measurements and Additional Note: Post-Debridement Measurements/Treatment - Nurse 1 - General Ulcer Assessment Start: 12/29/23 10:41 Freq: Status: Active Protocol: TAVO Activity Type Activity Date Activity User E-sign Co-sign Detail Recorded Client Recorded Date Recorded By Document 12/29/23 10:41 KW Wound center 12/29/23 10:49 KW Document 01/12/24 10:20 KW j 01/12/24 10:28 KW 12/29/23 01/12/24 10:41 10:20 - Today's Visit Information Type of service Follow-up Visit Follow-up Visit (Physician/ASPHALT SCREED OPERATOR (Physician/ASPHALT SCREED OPERATOR ) ) Arrival Mode Ambulatory Ambulatory, Walker Accompanied by Patient Identification Verified (Name & Yes Yes ) Height and Weight Body Mass Index (BMI) 62.8 62.8 BMI Classification Obese Obese Vital Signs Temperature (97.8 F-99.1 F) 96.7 F L 96.9 F L Temperature Source Temporal Temporal Pulse Rate (60-100) 69 57 L Pulse Location Monitor Monitor Respiratory Rate (12-18) 18 16 Respiratory rate source Observation Observation Oxygen Delivery Method Room Air Room Air Blood Pressure (90/60-120/80) 153/106 H 168/76 H Blood Pressure Mean (mm Hg) 121 106 Source Monitor Monitor Position Semi-Fowlers Semi-Fowlers Blood Pressure Location Left Arm Left Arm History Since Last Visit- (Skip if this is Patient's initial visit) Have you changed medications since your No No last visit? Any new allergies or adverse reactions No No Had a fall/change in ADL's that may No No increase risk of falls Signs or symptoms of abuse and/or No No neglect since last visit Have you been in the hospital since your No No last visit? Has dressing in place as prescribed Yes Yes Has compression in place as prescribed Yes Yes Has offloadiing in place as prescribed N/A N/A Experienced any changes in pain level or No No management Left Footwear Regular Shoe Regular Shoe Right Footwear Regular Shoe Regular Shoe Pain Scale: 0-10 Numeric Is Patient Pain Free? Yes Yes WC - Nurse 1 - General Ulcer Measurement Start: 12/29/23 10:41 Freq: Status: Active Protocol: Activity Type Activity Date Activity User E-sign Co-sign Detail Recorded Client Recorded Date Recorded By Document 12/29/23 10:41 KW Wound center 12/29/23 10:49 KW Document 01/12/24 10:20 KW j 01/12/24 10:28 KW 12/29/23 01/12/24 10:41 10:20 Wound Center Nurse 1 #1 RT LAT ANKLE -Current Size (cm) - Length 1 0.6 -Current Size (cm) - Width 1 0.4 -Current Size (cm) - Depth 0.2 0.1 -Total Square Cm 1 0.24 -Date of Last Picture (Recall this 12/29/23 01/12/24 field) -Exudate Amt Small Small -Exudate Type Serosanguineous Serosanguineous -Wound Margin Distinct, Distinct, Outline Outline Attached Attached -Granulation Amt Large (67-100%) Small (1-33%) -Granulation Quality [place] -Necrosis Amt Small (1-33%) Large (67-100%) -Necrotic Tissue Type Adherent Slough Adherent Slough -Texture (Essie-wound Skin Appearance) Assessed Assessed -Moisture (Essie-wound Skin Appearance) Assessed, Assessed Maceration -Color (Essie-wound Skin Appearance) Assessed Assessed -Temperature (Essie-wound Skin No Abnormality Appearance) (Pt Warm) -Tenderness on Palpation (Essie-wound No No Skin Appearance) -Ulcer Cleansing Soap and Water Soap and Water -Foul Odor after Cleansing No No -Anesthetic Used 5% Lidocaine 5% Lidocaine Gel Gel Right Calf (cm) 37.2 37.3 Right Ankle (cm) 24.5 - Nurse 2 - General Ulcer CM Notes Start: 12/29/23 10:41 Freq: Status: Active Protocol: Activity Type Activity Date Activity User E-sign Co-sign Detail Recorded Client Recorded Date Recorded By Document 12/29/23 11:02 [id number] 12/29/23 11:10 Document 01/12/24 10:48 [id number] 01/12/24 10:52 12/29/23 01/12/24 11:02 10:48 Wound Center Nurse 2 #1 RT LAT ANKLE -Time 11:03 10:50 -Correct Patient Yes Yes -Correct Side, Site, Position Yes Yes -Correct Procedure Yes Yes -Procedure Performed Yes Yes -Type of Procedure Debridement Debridement -Clinical Debridement Subcutaneous Subcutaneous -Tissue Removed Subcutaneous Subcutaneous -Post Debridement (cm) - Length 0.8 0.6 -Post Debridement (cm) - Width 0.7 0.4 -Post Debridement (cm) - Depth 0.1 0.1 -Total Square (Post) (cm) 0.56 0.24 -Area of Debridement (cm) - Length 0.8 0.6 -Area of Debridement (cm) - Width 0.7 0.4 -Total Square (Area) (cm) 0.56 0.24 -Tunneling No No -Undermining/Tunneling No No -Circular Undermining No No -Wound/Ulcer Outcome Not Healed Not Healed -Ulcer Cleansing Rinsed/ Rinsed/ Irrigated with Irrigated with Saline Saline -Foul Odor after Cleansing No No -Bioengineered Tissue Yes Yes -Type of Bioengineered Tissue Epifix 18mm Epifix 18mm Disc Disc -Expiration Date 07/26/28 06/25/28 -Product Lot Number [id number] -Percent Used 100 100 -Lot number of Saline Used [id number] -Bleeding Controlled with Pressure Pressure -Treatment Response Procedure Procedure Tolerated Well Tolerated Well -Offloading No No -Debridement - Subq, 1st 20sq cm No No -Apply Skin Sub - 1st 25 sq cm - Legs 1 1 -Epifix 18mm Disc 3 3 Pain Scale: 0-10 Numeric Is Patient Pain Free? Yes Yes - Nurse 3 - General Ulcer D/C NN Start: 12/29/23 10:41 Freq: Status: Active Protocol: Activity Type Activity Date Activity User E-sign Co-sign Detail Recorded Client Recorded Date Recorded By Document 12/29/23 11:12 KW Wound center 12/29/23 11:13 KW Document 01/12/24 11:03 [facility] 01/12/24 11:04 12/29/23 01/12/24 11:12 11:03 Wound Care Center Nurse 3 #1 RT LAT ANKLE -Ulcer Cleansing Not Cleansed -Foul Odor after Cleansing No -Primary Dressing Applied Mepilex Border Mepilex Border -Mepilex Border 1 1 Right -Lotion applied to leg before No compression wrap -Tubular Bandage Single Layer Single Layer -Size of Tubigrip Used Size E Size E -Size E ($) 1 1 Pain Scale: 0-10 Numeric Is Patient Pain Free? Yes Yes WC - Visit Discharge Discharge Condition Stable Stable Ambulatory Status Ambulatory, Ambulatory, Walker Walker Transportation Private Auto Private Auto Medication Reconcilliation completed & No provided to patient/care provider Clinical Summary of Care Provided Yes Yes Assessment/Plan Assessment/Plan (1) Non-pressure chronic ulcer of right ankle with fat layer exposed: CODE(S): L97.312 - Non-pressure chronic ulcer of right ankle with fat layer exposed PLAN: Patient was examined and evaluated. All findings were discussed with the patient. All questions were answered to the patient's satisfaction. Excision debridement down to and including subcutaneous tissue with a number 3 mm dermal curette to the right lateral ankle without incident. Predebridement measurement was 0.5 x 0.5 x 0.1 cm. Postdebridement measurement is 0.6 x 0.4 x 0.1 cm. EpiFix 18 mm disc was applied to the right ankle full-thickness ulceration with 100% use. Seventh application. The graft site was free and clear of any infection. The wound/skin graft substitute was dressed with nonadherent bandage secured in place with Steri-Strips followed by bolster dressing as well as a single layer Tubigrip. Patient has a scheduled follow-up with Dr. Weston for evaluation and consultation to the right lower extremity. Follow-up at the wound care center with Dr. Etienne in 1 week. 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
--- NOTE | 2024-01-14 11:12 | WC ---
01/12/2024 RIGHT LATERAL ANKLE
[2024-01-19 10:32] VITALS: BP 135/68; PULSE 48; RESP 18; TEMP 35.9; BMI 62.8
--- NOTE | 2024-01-19 13:05 | PN.PCM_ITS ---
History of Present Illness Date of Service: 01/19/24 Chief Complaint: Right ankle ulceration History of Wound: Chronic right ankle wound Subjective Subjective Mr. Lane is a 68-year-old male presenting to clinic today for follow-up evaluation of right lateral ankle full-thickness ulceration. Plan for vascular intervention would be a bypass to the right leg. Patient will be following up with Dr. Weston on January 25 for evaluation. He has kept his dressing clean dry and intact. He still has not smoked. He denies trauma. He denies constitutional symptoms. No other pedal complaints at this time. Objective Data Objective Data Vital Signs: Vital Signs Temp Pulse Resp BP O2 Del Method 96.6 F L 48 L 18 135/68 H Room Air 01/19/24 10:32 01/19/24 10:32 01/19/24 10:32 01/19/24 10:32 01/19/24 10:32 Oxygen Delivery Method Room Air Weight: 210 kg Body Mass Index (BMI) 62.8 Physical Exam Narrative Vascular: DP and PT pulses are palpable. CFT is brisk. Skin temperature gradient is warm to cool from proximal ankle to distal digit bilateral. Nonpitting edema appreciated to the bilateral lower extremity. Neurological: Light touch intact. Protective sensation is diminished. Dermatological: Full-thickness ulceration to the lateral aspect of the right ankle measuring 0.6 x 0.5 x 0.1 cm. Wound base is granular nature with evidence of small amounts of fibrotic tissue. No active drainage at this time. Webspaces 1 through 4 are clean dry and intact. Toenails 1 through 5 within normal limits. Excision debridement down to and including subcutaneous tissue with a number 3 mm dermal curette to the right lateral ankle without incident. Predebridement measurement was 0.5 x 0.4 x 0.1 cm. Postdebridement measurement is 0.6 x 0.5 x 0.1 cm. EpiFix 18 mm disc was applied to the right ankle full-thickness ulceration with 100% use. Eighth application. The graft site was free and clear of any infection. The wound/skin graft substitute was dressed with nonadherent bandage secured in place with Steri-Strips followed by bolster dressing as well as a single layer Tubigrip. Musculoskeletal: Muscle strength is 5 out of 5 to left lower extremity. Right lower extremity muscle strength is 3 out of 5 with evidence of foot drop. Mild pain to palpation to full-thickness ulceration right ankle. No pain with calf compression. Debridement Note Debridement Note Debridement Free Text: Excision debridement down to and including subcutaneous tissue with a number 3 mm dermal curette to the right lateral ankle without incident. Predebridement measurement was 0.5 x 0.4 x 0.1 cm. Postdebridement measurement is 0.6 x 0.5 x 0.1 cm. EpiFix 18 mm disc was applied to the right ankle full-thickness ulceration with 100% use. Eighth application. The graft site was free and clear of any infection. The wound/skin graft substitute was dressed with nonadherent bandage secured in place with Steri-Strips followed by bolster dressing as well as a single layer Tubigrip. Post-Debridement Measurements and Additional Note: Post-Debridement Measurements/Treatment - Nurse 1 - General Ulcer Assessment Start: 12/29/23 10:41 Freq: Status: Active Protocol: .LOWEXFritz Activity Type Activity Date Activity User E-sign Co-sign Detail Recorded Client Recorded Date Recorded By Document 12/29/23 10:41 KW Wound center 12/29/23 10:49 KW Document 01/12/24 10:20 KW j 01/12/24 10:28 KW Document 01/19/24 10:32 KW ; 01/19/24 10:40 KW 12/29/23 01/12/24 01/19/24 10:41 10:20 10:32 - Today's Visit Information Type of service Follow-up Visit Follow-up Visit Follow-up Visit (Physician/MEDICARE SPECIALIST (Physician/MEDICARE SPECIALIST (Physician/MEDICARE SPECIALIST ) ) ) Arrival Mode Ambulatory Ambulatory, Ambulatory, Walker Walker Accompanied by Patient Identification Verified (Name & Yes Yes Yes ) Height and Weight Body Mass Index (BMI) 62.8 62.8 62.8 BMI Classification Obese Obese Obese Vital Signs Temperature (97.8 F-99.1 F) 96.7 F L 96.9 F L 96.6 F L Temperature Source Temporal Temporal Temporal Pulse Rate (60-100) 69 57 L 48 L Pulse Location Monitor Monitor Monitor Respiratory Rate (12-18) 18 16 18 Respiratory rate source Observation Observation Observation Oxygen Delivery Method Room Air Room Air Room Air Blood Pressure (90/60-120/80) 153/106 H 168/76 H 135/68 H Blood Pressure Mean (mm Hg) 121 106 90 Source Monitor Monitor Monitor Position Semi-Fowlers Semi-Fowlers Semi-Fowlers Blood Pressure Location Left Arm Left Arm Left Arm History Since Last Visit- (Skip if this is Patient's initial visit) Have you changed medications since your No No No last visit? Any new allergies or adverse reactions No No No Had a fall/change in ADL's that may No No No increase risk of falls Signs or symptoms of abuse and/or No No No neglect since last visit Have you been in the hospital since your No No No last visit? Has dressing in place as prescribed Yes Yes Yes Has compression in place as prescribed Yes Yes Yes Has offloadiing in place as prescribed N/A N/A N/A Experienced any changes in pain level or No No No management Left Footwear Regular Shoe Regular Shoe Regular Shoe Right Footwear Regular Shoe Regular Shoe Regular Shoe Pain Scale: 0-10 Numeric Is Patient Pain Free? Yes Yes Yes WC - Nurse 1 - General Ulcer Measurement Start: 12/29/23 10:41 Freq: Status: Active Protocol: Activity Type Activity Date Activity User E-sign Co-sign Detail Recorded Client Recorded Date Recorded By Document 12/29/23 10:41 KW Wound center 12/29/23 10:49 KW Document 01/12/24 10:20 KW j 01/12/24 10:28 KW Document 01/19/24 10:32 KW ; 01/19/24 10:40 KW 12/29/23 01/12/24 01/19/24 10:41 10:20 10:32 Wound Center Nurse 1 #1 RT LAT ANKLE -Current Size (cm) - Length 1 0.6 0.9 -Current Size (cm) - Width 1 0.4 0.8 -Current Size (cm) - Depth 0.2 0.1 0.2 -Total Square Cm 1 0.24 0.72 -Date of Last Picture (Recall this 12/29/23 01/12/24 field) -Exudate Amt Small Small Small -Exudate Type Serosanguineous Serosanguineous Serosanguineous -Wound Margin Distinct, Distinct, Distinct, Outline Outline Outline Attached Attached Attached -Granulation Amt Large (67-100%) Small (1-33%) Large (67-100%) -Granulation Quality [place] -Necrosis Amt Small (1-33%) Large (67-100%) Small (1-33%) -Necrotic Tissue Type Adherent Slough Adherent Slough Adherent Slough -Texture (Essie-wound Skin Appearance) Assessed Assessed Assessed, Localized Edema -Moisture (Essie-wound Skin Appearance) Assessed, Assessed Assessed Maceration -Color (Essie-wound Skin Appearance) Assessed Assessed Assessed -Temperature (Essie-wound Skin No Abnormality No Abnormality Appearance) (Pt Warm) (Pt Warm) -Tenderness on Palpation (Essie-wound No No Skin Appearance) -Ulcer Cleansing Soap and Water Soap and Water Soap and Water -Foul Odor after Cleansing No No No -Anesthetic Used 5% Lidocaine 5% Lidocaine 5% Lidocaine Gel Gel Gel Right Calf (cm) 37.2 37.3 34 Right Ankle (cm) 24.5 27 WC - Nurse 2 - General Ulcer CM Notes Start: 12/29/23 10:41 Freq: Status: Active Protocol: Activity Type Activity Date Activity User E-sign Co-sign Detail Recorded Client Recorded Date Recorded By Document 12/29/23 11:02 [id number] 12/29/23 11:10 Document 01/12/24 10:48 [id number] 01/12/24 10:52 Document 01/19/24 10:51 000 01/19/24 10:54 12/29/23 01/12/24 01/19/24 11:02 10:48 10:51 Wound Center Nurse 2 #1 RT LAT ANKLE -Time 11:03 10:50 10:51 -Correct Patient Yes Yes Yes -Correct Side, Site, Position Yes Yes Yes -Correct Procedure Yes Yes Yes -Procedure Performed Yes Yes Yes -Type of Procedure Debridement Debridement Debridement -Clinical Debridement Subcutaneous Subcutaneous Subcutaneous -Tissue Removed Subcutaneous Subcutaneous Subcutaneous -Post Debridement (cm) - Length 0.8 0.6 0.6 -Post Debridement (cm) - Width 0.7 0.4 0.5 -Post Debridement (cm) - Depth 0.1 0.1 0.1 -Total Square (Post) (cm) 0.56 0.24 0.30 -Area of Debridement (cm) - Length 0.8 0.6 0.6 -Area of Debridement (cm) - Width 0.7 0.4 0.5 -Total Square (Area) (cm) 0.56 0.24 0.30 -Tunneling No No No -Undermining/Tunneling No No No -Circular Undermining No No No -Wound/Ulcer Outcome Not Healed Not Healed Not Healed -Ulcer Cleansing Rinsed/ Rinsed/ Rinsed/ Irrigated with Irrigated with Irrigated with Saline Saline Saline -Foul Odor after Cleansing No No No -Bioengineered Tissue Yes Yes Yes -Type of Bioengineered Tissue Epifix 18mm Epifix 18mm Epifix 18mm Disc Disc Disc -Expiration Date 07/26/28 06/25/28 07/26/28 -Product Lot Number [id number] -Percent Used 100 100 100 -Lot number of Saline Used [id number] -Bleeding Controlled with Pressure Pressure Pressure -Treatment Response Procedure Procedure Procedure Tolerated Well Tolerated Well Tolerated Well -Offloading No No No -Debridement - Subq, 1st 20sq cm No No No -Apply Skin Sub - 1st 25 sq cm - Legs 1 1 1 -Epifix 18mm Disc 3 3 3 Pain Scale: 0-10 Numeric Is Patient Pain Free? Yes Yes Yes - Nurse 3 - General Ulcer D/C NN Start: 12/29/23 10:41 Freq: Status: Active Protocol: Activity Type Activity Date Activity User E-sign Co-sign Detail Recorded Client Recorded Date Recorded By Document 12/29/23 11:12 Wound center 12/29/23 11:13 Document 01/12/24 11:03 [facility] 01/12/24 11:04 Document 01/19/24 [facility]02 [id number] 01/19/24 11:06 [place] 12/29/23 01/12/24 01/19/24 11:12 11:03 11:02 Wound Care Center Nurse 3 #1 RT LAT ANKLE -Ulcer Cleansing Not Cleansed -Foul Odor after Cleansing No -Primary Dressing Applied Mepilex Border Mepilex Border Mepilex Border -Mepilex Border 1 1 1 Right -Lotion applied to leg before No compression wrap -Tubular Bandage Single Layer Single Layer -Size of Tubigrip Used Size E Size E Size E -Size E ($) 1 1 Pain Scale: 0-10 Numeric Is Patient Pain Free? Yes Yes Yes - Visit Discharge Discharge Condition Stable Stable Ambulatory Status Ambulatory, Ambulatory, Walker Walker Transportation Private Auto Private Auto Medication Reconcilliation completed & No provided to patient/care provider Clinical Summary of Care Provided Yes Yes Assessment/Plan Assessment/Plan (1) Non-pressure chronic ulcer of right ankle with fat layer exposed: CODE(S): L97.312 - Non-pressure chronic ulcer of right ankle with fat layer exposed PLAN: Patient was examined and evaluated. All findings were discussed with the patient. All questions were answered to the patient's satisfaction. Excision debridement down to and including subcutaneous tissue with a number 3 mm dermal curette to the right lateral ankle without incident. Predebridement measurement was 0.5 x 0.4 x 0.1 cm. Postdebridement measurement is 0.6 x 0.5 x 0.1 cm. EpiFix 18 mm disc was applied to the right ankle full-thickness ulceration with 100% use. Eighth application. The graft site was free and clear of any infection. The wound/skin graft substitute was dressed with nonadherent bandage secured in place with Steri-Strips followed by bolster dressing as well as a single layer Tubigrip. Follow-up at the wound care center with Dr. Etienne in 1 week. (2) Other specified peripheral vascular diseases: CODE(S): I73.89 - Other specified peripheral vascular diseases PLAN: Patient will be following up with Dr. Weston on 01/26/2024 for evaluation. 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
== END 2024-01-23 23:59 | disposition home or self-care (01) ==
LOC: WC 10:15
PROVIDERS: PCP Nurse Practitioner Family; Referring Provider Nurse Practitioner Family; Visit Provider Podiatrist Foot & Ankle Surgery
DX: L97.312 Non-pressure chronic ulcer of right ankle with fat layer exposed (principal); I70.25 Atherosclerosis of native arteries of other extremities with ulceration; I70.233 Atherosclerosis of native arteries of right leg with ulceration of ankle; Z87.891 Personal history of nicotine dependence; I73.89 Other specified peripheral vascular diseases
CPT/HCPCS: 15271; Q4186

== ENCOUNTER 2024-02-23 10:00 | Outpatient (RCR) | payer MEDICARE, SELFPAY ==
[2024-01-24 00:09] VITALS: BP 151/101; PULSE 62; RESP 18; TEMP 35.4; BMI 62.8
[2024-01-26 16:26] VITALS: RESP 18; TEMP 35.8; BMI 62.8
--- NOTE | 2024-01-26 16:35 | PN.PCM_ITS ---
History of Present Illness Date of Service: 01/26/24 Chief Complaint: Right ankle ulceration History of Wound: Chronic right ankle wound Subjective Subjective Mr. Lane is a 68-year-old male presenting to clinic today for follow-up evaluation of right lateral ankle full-thickness ulceration. Patient saw Dr. Vasu Reyes today vascular surgery and states that they will hold off on any intervention until it is needed. Patient has quit smoking now for approximately 6 weeks. Denies trauma. Denies constitutional symptoms. Other pedal complaints at this time. Objective Data Objective Data Vital Signs: Vital Signs Temp Pulse Resp BP O2 Del Method 96.4 F L 62 18 151/101 H Room Air 01/26/24 16:26 01/24/24 00:09 01/26/24 16:26 01/24/24 00:09 01/26/24 16:26 Oxygen Delivery Method Room Air Weight: 210 kg Body Mass Index (BMI) 62.8 Physical Exam Narrative Vascular: DP and PT pulses are palpable. CFT is brisk. Skin temperature gradient is warm to cool from proximal ankle to distal digit bilateral. Nonpit ting edema appreciated to the bilateral lower extremity. Neurological: Light touch intact. Protective sensation is diminished. Dermatological: Full-thickness ulceration to the lateral aspect of the right ankle measuring 0.4 x 0.4 x 0.1 cm. Wound base is granular nature with evidence of small amounts of fibrotic tissue. No active drainage at this time. Webspaces 1 through 4 are clean dry and intact. Toenails 1 through 5 within normal limits. Excision debridement down to and including subcutaneous tissue with a number 3 mm dermal curette to the right lateral ankle without incident. Predebridement measurement was 0.3 x 0.4 x 0.1 cm. Postdebridement measurement is 0.4 x 0.4 x 0.1 cm. EpiFix 18 mm disc was applied to the right ankle full-thickness ulceration with 100% use. 10th application. The graft site was free and clear of any infection. The wound/skin graft substitute was dressed with nonadherent bandage secured in place with Steri-Strips followed by bolster dressing as well as a single layer Tubigrip. Musculoskeletal: Muscle strength is 5 out of 5 to left lower extremity. Right lower extremity muscle strength is 3 out of 5 with evidence of foot drop. Mild pain to palpation to full-thickness ulceration right ankle. No pain with calf compression. Debridement Note Debridement Note Debridement Free Text: Excision debridement down to and including subcutaneous tissue with a number 3 mm dermal curette to the right lateral ankle without incident. Predebridement measurement was 0.3 x 0.4 x 0.1 cm. Postdebridement measurement is 0.4 x 0.4 x 0.1 cm. EpiFix 18 mm disc was applied to the right ankle full-thickness ulceration with 100% use. 10th application. The graft site was free and clear of any infection. The wound/skin graft substitute was dressed with nonadherent bandage secured in place with Steri-Strips followed by bolster dressing as well as a single layer Tubigrip. Post-Debridement Measurements and Additional Note: Post-Debridement Measurements/Treatment - Nurse 1 - General Ulcer Assessment Start: 01/26/24 16:26 Freq: Status: Active Protocol: TAVO Activity Type Activity Date Activity User E-sign Co-sign Detail Recorded Client Recorded Date Recorded By Document 01/26/24 16:26 KW l 01/26/24 16:28 KW 01/26/24 16:26 WC - Today's Visit Information Type of service Follow-up Visit (Physician/[employer]STAUR[employer] GENER[employer] MANAGER ) Arrival Mode Ambulatory, Walker Accompanied by Patient Identification Verified (Name & Yes ) Height and Weight Body Mass Index (BMI) 62.8 BMI Classification Obese Vital Signs Temperature (97.8 F-99.1 F) 96.4 F L Temperature Source Temporal Pulse Location Monitor Respiratory Rate (12-18) 18 Respiratory rate source Observation Oxygen Delivery Method Room Air History Since Last Visit- (Skip if this is Patient's initial visit) Have you changed medications since your No last visit? Any new allergies or adverse reactions No Had a fall/change in ADL's that may No increase risk of falls Signs or symptoms of abuse and/or No neglect since last visit Have you been in the hospital since your No last visit? Has dressing in place as prescribed Yes Has compression in place as prescribed Yes Has offloadiing in place as prescribed N/A Experienced any changes in pain level or No management Left Footwear Regular Shoe Right Footwear Regular Shoe Pain Scale: 0-10 Numeric Is Patient Pain Free? Yes - Nurse 1 - General Ulcer Measurement Start: 01/26/24 16:26 Freq: Status: Active Protocol: Activity Type Activity Date Activity User E-sign Co-sign Detail Recorded Client Recorded Date Recorded By Document 01/26/24 16:26 KW l 01/26/24 16:28 KW 01/26/24 16:26 Wound Center Nurse 1 #1 RT LAT ANKLE -Exudate Amt Small -Exudate Type Serosanguineous -Wound Margin Distinct, Outline Attached -Granulation Amt Small (1-33%) -Granulation Quality [place] -Necrosis Amt Large (67-100%) -Necrotic Tissue Type Adherent Slough -Texture (Essie-wound Skin Appearance) Assessed -Moisture (Essie-wound Skin Appearance) Assessed -Color (Essie-wound Skin Appearance) Assessed -Temperature (Essie-wound Skin No Abnormality Appearance) (Pt Warm) -Tenderness on Palpation (Essie-wound No Skin Appearance) -Ulcer Cleansing Rinsed/ Irrigated with Saline -Foul Odor after Cleansing No -Anesthetic Used 5% Lidocaine Gel Assessment/Plan Assessment/Plan (1) Non-pressure chronic ulcer of right ankle with fat layer exposed: CODE(S): L97.312 - Non-pressure chronic ulcer of right ankle with fat layer exposed PLAN: Patient was examined and evaluated. All findings were discussed with the patient. All questions were answered to the patient's satisfaction. Excision debridement down to and including subcutaneous tissue with a number 3 mm dermal curette to the right lateral ankle without incident. Predebridement measurement was 0.3 x 0.4 x 0.1 cm. Postdebridement measurement is 0.4 x 0.4 x 0.1 cm. EpiFix 18 mm disc was applied to the right ankle full-thickness ulceration with 100% use. 10th application. The graft site was free and clear of any infection. The wound/skin graft substitute was dressed with nonadherent bandage secured in place with Steri-Strips followed by bolster dressing as well as a single layer Tubigrip. Follow-up at the wound care center with Dr. Etienne in 1 week. (2) Other specified peripheral vascular diseases: CODE(S): I73.89 - Other specified peripheral vascular diseases
[2024-02-02 11:15] VITALS: BP 163/69; PULSE 51; RESP 18; TEMP 35.9; BMI 62.8
--- NOTE | 2024-02-02 12:34 | PCM.WC.PN ---
History of Present Illness Date of Service: 02/02/24 Chief Complaint: Right ankle ulceration History of Wound: Chronic right ankle wound Subjective Subjective Mr. Lane is a 68-year-old male presenting to clinic today for follow-up evaluation of right lateral ankle full-thickness ulceration. \Denies trauma. Denies constitutional symptoms. Other pedal complaints at this time. Objective Data Objective Data Vital Signs: Vital Signs Temp Pulse Resp BP O2 Del Method 96.7 F L 51 L 18 163/69 H Room Air 02/02/24 11:15 02/02/24 11:15 02/02/24 11:15 02/02/24 11:15 02/02/24 11:15 Oxygen Delivery Method Room Air Weight: 210 kg Body Mass Index (BMI) 62.8 Physical Exam Narrative Vascular: DP and PT pulses are palpable. CFT is brisk. Skin temperature gradient is warm to cool from proximal ankle to distal digit bilateral. Nonpitting edema appreciated to the bilateral lower extremity. Neurological: Light touch intact. Protective sensation is diminished. Dermatological: Full-thickness ulceration to the lateral aspect of the right ankle measuring 0.1 x 0.1 x 0.1 cm. Wound base is granular nature with evidence of small amounts of fibrotic tissue. No active drainage at this time. Webspaces 1 through 4 are clean dry and intact. Toenails 1 through 5 within normal limits. Musculoskeletal: Muscle strength is 5 out of 5 to left lower extremity. Right lower extremity muscle strength is 3 out of 5 with evidence of foot drop. Mild pain to palpation to full-thickness ulceration right ankle. No pain with calf compression. Debridement Note Debridement Note Post-Debridement Measurements and Additional Note: Post-Debridement Measurements/Treatment - Nurse 1 - General Ulcer Assessment Start: 01/26/24 16:26 Freq: Status: Active Protocol: LUIS [email or web address].LOWEXT Activity Type Activity Date Activity User E-sign Co-sign Detail Recorded Client Recorded Date Recorded By Document 01/26/24 16:26 KW l 01/26/24 16:28 KW Document 02/02/24 11:15 KW ; 02/02/24 11:20 KW 01/26/24 02/02/24 16:26 11:15 - Today's Visit Information Type of service Follow-up Visit Follow-up Visit (Physician/FINE ARTS MODEL (Physician/FINE ARTS MODEL ) ) Arrival Mode Ambulatory, Ambulatory, Walker Walker Accompanied by Patient Identification Verified (Name & Yes Yes ) Height and Weight Body Mass Index (BMI) 62.8 62.8 BMI Classification Obese Obese Vital Signs Temperature (97.8 F-99.1 F) 96.4 F L 96.7 F L Temperature Source Temporal Temporal Pulse Rate (60-100) 51 L Pulse Location Monitor Monitor Respiratory Rate (12-18) 18 18 Respiratory rate source Observation Observation Oxygen Delivery Method Room Air Room Air Blood Pressure (90/60-120/80) 163/69 H Blood Pressure Mean (mm Hg) 100 Source Monitor Position Semi-Fowlers Blood Pressure Location Left Arm History Since Last Visit- (Skip if this is Patient's initial visit) Have you changed medications since your No No last visit? Any new allergies or adverse reactions No No Had a fall/change in ADL's that may No No increase risk of falls Signs or symptoms of abuse and/or No No neglect since last visit Have you been in the hospital since your No No last visit? Has dressing in place as prescribed Yes Yes Has compression in place as prescribed Yes Yes Has offloadiing in place as prescribed N/A N/A Experienced any changes in pain level or No No management Left Footwear Regular Shoe Regular Shoe Right Footwear Regular Shoe Regular Shoe Pain Scale: 0-10 Numeric Is Patient Pain Free? Yes Yes WC - Nurse 1 - General Ulcer Measurement Start: 01/26/24 16:26 Freq: Status: Active Protocol: Activity Type Activity Date Activity User E-sign Co-sign Detail Recorded Client Recorded Date Recorded By Document 01/26/24 16:26 KW l 01/26/24 16:28 KW Document 02/02/24 11:15 KW ; 02/02/24 11:20 KW 01/26/24 02/02/24 16:26 11:15 Wound Center Nurse 1 #1 RT LAT ANKLE -Current Size (cm) - Length 0.1 -Current Size (cm) - Width 0.1 -Current Size (cm) - Depth 0.1 -Total Square Cm 0.01 -Date of Last Picture (Recall this 02/02/24 field) -Exudate Amt Small Small -Exudate Type Serosanguineous Serosanguineous -Wound Margin Distinct, Outline Attached -Granulation Amt Small (1-33%) -Granulation Quality [place] -Necrosis Amt Large (67-100%) -Necrotic Tissue Type Adherent Slough -Texture (Essie-wound Skin Appearance) Assessed Assessed -Moisture (Essie-wound Skin Appearance) Assessed Assessed -Color (Essie-wound Skin Appearance) Assessed Assessed -Temperature (Essie-wound Skin No Abnormality No Abnormality Appearance) (Pt Warm) (Pt Warm) -Tenderness on Palpation (Essie-wound No No Skin Appearance) -Ulcer Cleansing Rinsed/ Soap and Water Irrigated with Saline -Foul Odor after Cleansing No No -Anesthetic Used 5% Lidocaine Gel -Wound Comment(s) PRODUCT LEFT ON AND INTACT Right Calf (cm) 36.5 Right Ankle (cm) 25 WC - Nurse 2 - General Ulcer CM Notes Start: 01/26/24 16:26 Freq: Status: Active Protocol: Activity Type Activity Date Activity User E-sign Co-sign Detail Recorded Client Recorded Date Recorded By Document 01/26/24 16:33 JF 0000 01/26/24 16:36 JF Document 02/02/24 11:38 JF 000 02/02/24 11:38 JF 01/26/24 02/02/24 16:33 11:38 Wound Center Nurse 2 #1 RT LAT ANKLE -Time 16:33 -Correct Patient Yes No -Correct Side, Site, Position Yes No -Correct Procedure Yes No -Procedure Performed Yes No -Type of Procedure Debridement -Clinical Debridement Subcutaneous -Tissue Removed Subcutaneous -Post Debridement (cm) - Length 0.4 -Post Debridement (cm) - Width 0.4 -Post Debridement (cm) - Depth 0.1 -Total Square (Post) (cm) 0.16 -Area of Debridement (cm) - Length 0.4 -Area of Debridement (cm) - Width 0.4 -Total Square (Area) (cm) 0.16 -Tunneling No -Undermining/Tunneling No -Circular Undermining No -Wound/Ulcer Outcome Not Healed Not Healed -Ulcer Cleansing Rinsed/ Irrigated with Saline -Foul Odor after Cleansing No -Bioengineered Tissue Yes -Type of Bioengineered Tissue Epifix 18mm Disc -Expiration Date 07/26/28 -Product Lot Number [id number] -Percent Used 100 -Lot number of Saline Used [id number] -Bleeding Controlled with Pressure -Treatment Response Procedure Tolerated Well -Offloading No -Debridement - Subq, 1st 20sq cm No -Apply Skin Sub - 1st 25 sq cm - Legs 1 -Epifix 18mm Disc 3 Pain Scale: 0-10 Numeric Is Patient Pain Free? Yes Yes - Nurse 3 - General Ulcer D/C NN Start: 01/26/24 16:26 Freq: Status: Active Protocol: Activity Type Activity Date Activity User E-sign Co-sign Detail Recorded Client Recorded Date Recorded By Document 01/26/24 16:36 JF 0000 01/26/24 16:37 JF Document 01/26/24 16:37 KW l 01/26/24 16:37 KW Edit Result 01/26/24 16:37 KW (1) l 01/26/24 16:38 KW Document 02/02/24 11:43 KW ; 02/02/24 11:44 KW (1) #1 RT LAT ANKLE - Primary Dressing Applied Mepilex Border => - Mepilex Border 1 => 01/26/24 01/26/24 02/02/24 16:36 16:37 11:43 Wound Care Center Nurse 3 #1 RT LAT ANKLE -Ulcer Cleansing Rinsed/ Irrigated with Saline -Primary Dressing Applied Mepilex Border Mepilex Border -Other Dressing HYDROGEL -Primary Dressing Covered/Secured with Dry Gauze -Mepilex Border 1 1 Right -Tubular Bandage Single Layer Single Layer -Size of Tubigrip Used Size E Size E -Size E ($) 1 1 -Other PT OWN TUBIGRIP SIZE E Pain Scale: 0-10 Numeric Is Patient Pain Free? Yes Yes Yes - Visit Discharge Discharge Condition Stable Stable Stable Ambulatory Status Ambulatory, Ambulatory, Ambulatory, Walker Walker Walker Transportation Private Auto Private Auto Private Auto Accompanied by Medication Reconcilliation completed & Yes No No provided to patient/care provider Clinical Summary of Care Provided Yes Yes Yes Assessment/Plan Assessment/Plan (1) Non-pressure chronic ulcer of right ankle with fat layer exposed: CODE(S): L97.312 - Non-pressure chronic ulcer of right ankle with fat layer exposed PLAN: Patient was examined and evaluated. All findings were discussed with the patient. All questions were answered to the patient's satisfaction. Patient's ulceration shows evidence of sanguinous crust after graft placement last week. The area was dressed with hydrogel and a border foam followed by compression. Patient will leave it clean dry and intact Follow-up at the wound care center with Dr. Etienne in 1 week. 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
--- NOTE | 2024-02-03 10:20 | WC ---
PHOTO 02/02/2024 RIGHT LATERAL ANKLE
[2024-02-09 09:50] VITALS: BP 187/98; PULSE 49; RESP 18; TEMP 36.7; BMI 62.8
--- NOTE | 2024-02-09 10:34 | PN.PCM_ITS ---
History of Present Illness Date of Service: 02/09/24 Chief Complaint: Right ankle ulceration History of Wound: Chronic right ankle wound Subjective Subjective Mr. Lane is a 68-year-old male presenting to clinic today for follow-up evaluation of right lateral ankle full-thickness ulceration. Denies trauma. Denies constitutional symptoms. Other pedal complaints at this time. Objective Data Objective Data Vital Signs: Vital Signs Temp Pulse Resp BP O2 Del Method 98.1 F 49 L 18 187/98 H Room Air 02/09/24 09:50 02/09/24 09:50 02/09/24 09:50 02/09/24 09:50 02/09/24 09:50 Oxygen Delivery Method Room Air Weight: 210 kg Body Mass Index (BMI) 62.8 Physical Exam Narrative Vascular: DP and PT pulses are palpable. CFT is brisk. Skin temperature gradient is warm to cool from proximal ankle to distal digit bilateral. Nonpitting edema appreciated to the bilateral lower extremity. Neurological: Light touch intact. Protective sensation is diminished. Dermatological: Full-thickness ulceration to the lateral aspect of the right ankle measuring 0.3 x 0.3 x 0.1 cm. Wound base is granular nature with evidence of small amounts of fibrotic tissue. No active drainage at this time. Webspaces 1 through 4 are clean dry and intact. Toenails 1 through 5 within normal limits. Excisional debridement down to and including subcutaneous tissue with a number 3 mm dermal curette to the right lower extremity lateral ankle full-thickness ulceration without incident. Predebridement measurement was sanguinous crust. Postdebridement measurement is 0.3 x 0.3 x 0.1 cm. Musculoskeletal: Muscle strength is 5 out of 5 to left lower extremity. Right lower extremity muscle strength is 3 out of 5 with evidence of foot drop. Mild pain to palpation to full-thickness ulceration right ankle. No pain with calf compression. Debridement Note Debridement Note Debridement Free Text: Excisional debridement down to and including subcutaneous tissue with a number 3 mm dermal curette to the right lower extremity lateral ankle full-thickness ulceration without incident. Predebridement measurement was sanguinous crust. Postdebridement measurement is 0.3 x 0.3 x 0.1 cm. Post-Debridement Measurements and Additional Note: Post-Debridement Measurements/Treatment WC - Nurse 1 - General Ulcer Assessment Start: 01/26/24 16:26 Freq: Status: Active Protocol: WC.LOWEXT Activity Type Activity Date Activity User E-sign Co-sign Detail Recorded Client Recorded Date Recorded By Document 01/26/24 16:26 KW l 01/26/24 16:28 KW Document 02/02/24 11:15 KW ; 02/02/24 11:20 KW Document 02/09/24 09:50 KW ; 02/09/24 09:55 KW 01/26/24 02/02/24 02/09/24 16:26 11:15 09:50 WC - Today's Visit Information Type of service Follow-up Visit Follow-up Visit Follow-up Visit (Physician/BOTTLING LINE OPERATOR (Physician/BOTTLING LINE OPERATOR (Physician/BOTTLING LINE OPERATOR ) ) ) Arrival Mode Ambulatory, Ambulatory, Ambulatory, Walker Walker Walker Accompanied by Patient Identification Verified (Name & Yes Yes Yes ) Height and Weight Body Mass Index (BMI) 62.8 62.8 62.8 BMI Classification Obese Obese Obese Vital Signs Temperature (97.8 F-99.1 F) 96.4 F L 96.7 F L 98.1 F Temperature Source Temporal Temporal Temporal Pulse Rate (60-100) 51 L 49 L Pulse Location Monitor Monitor Monitor Respiratory Rate (12-18) 18 18 18 Respiratory rate source Observation Observation Observation Oxygen Delivery Method Room Air Room Air Room Air Blood Pressure (90/60-120/80) 163/69 H 187/98 H Blood Pressure Mean (mm Hg) 100 127 Source Monitor Monitor Position Semi-Fowlers Semi-Fowlers Blood Pressure Location Left Arm Left Arm History Since Last Visit- (Skip if this is Patient's initial visit) Have you changed medications since your No No No last visit? Any new allergies or adverse reactions No No No Had a fall/change in ADL's that may No No No increase risk of falls Signs or symptoms of abuse and/or No No No neglect since last visit Have you been in the hospital since your No No No last visit? Has dressing in place as prescribed Yes Yes Yes Has compression in place as prescribed Yes Yes Yes Has offloadiing in place as prescribed N/A N/A N/A Experienced any changes in pain level or No No No management Left Footwear Regular Shoe Regular Shoe Regular Shoe Right Footwear Regular Shoe Regular Shoe Regular Shoe Pain Scale: 0-10 Numeric Is Patient Pain Free? Yes Yes Yes - Nurse 1 - General Ulcer Measurement Start: 01/26/24 16:26 Freq: Status: Active Protocol: Activity Type Activity Date Activity User E-sign Co-sign Detail Recorded Client Recorded Date Recorded By Document 01/26/24 16:26 KW l 01/26/24 16:28 KW Document 02/02/24 11:15 KW ; 02/02/24 11:20 KW Document 02/09/24 09:50 KW ; 02/09/24 09:55 KW 01/26/24 02/02/24 02/09/24 16:26 11:15 09:50 Wound Center Nurse 1 #1 RT LAT ANKLE -Current Size (cm) - Length 0.1 0.4 -Current Size (cm) - Width 0.1 0.4 -Current Size (cm) - Depth 0.1 0.1 -Total Square Cm 0.01 0.16 -Date of Last Picture (Recall this 02/02/24 field) -Exudate Amt Small Small -Exudate Type Serosanguineous Serosanguineous -Wound Margin Distinct, Outline Attached -Granulation Amt Small (1-33%) Large (67-100%) -Granulation Quality [place] -Necrosis Amt Large (67-100%) Small (1-33%) -Necrotic Tissue Type Adherent Slough Adherent Slough -Texture (Essie-wound Skin Appearance) Assessed Assessed Assessed -Moisture (Essie-wound Skin Appearance) Assessed Assessed Assessed -Color (Essie-wound Skin Appearance) Assessed Assessed Assessed -Temperature (Essie-wound Skin No Abnormality No Abnormality No Abnormality Appearance) (Pt Warm) (Pt Warm) (Pt Warm) -Tenderness on Palpation (Essie-wound No No No Skin Appearance) -Ulcer Cleansing Rinsed/ Soap and Water Rinsed/ Irrigated with Irrigated with Saline Saline -Foul Odor after Cleansing No No No -Anesthetic Used 5% Lidocaine 5% Lidocaine Gel Gel -Wound Comment(s) PRODUCT LEFT ON AND INTACT Right Calf (cm) 36.5 37 Right Ankle (cm) 25 23.2 WC - Nurse 2 - General Ulcer CM Notes Start: 01/26/24 16:26 Freq: Status: Active Protocol: Activity Type Activity Date Activity User E-sign Co-sign Detail Recorded Client Recorded Date Recorded By Document 01/26/24 16:33 JF 0000 01/26/24 16:36 JF Document 02/02/24 11:38 JF 000 02/02/24 11:38 Document 02/09/24 10:01 [facility] 02/09/24 10:02 01/26/24 02/02/24 02/09/24 16:33 11:38 10:01 Wound Center Nurse 2 #1 RT LAT ANKLE -Time 16:33 10:01 -Correct Patient Yes No Yes -Correct Side, Site, Position Yes No Yes -Correct Procedure Yes No Yes -Procedure Performed Yes No Yes -Type of Procedure Debridement Debridement -Clinical Debridement Subcutaneous Subcutaneous -Tissue Removed Subcutaneous Subcutaneous -Post Debridement (cm) - Length 0.4 0.3 -Post Debridement (cm) - Width 0.4 0.3 -Post Debridement (cm) - Depth 0.1 0.1 -Total Square (Post) (cm) 0.16 0.09 -Area of Debridement (cm) - Length 0.4 0.3 -Area of Debridement (cm) - Width 0.4 0.3 -Total Square (Area) (cm) 0.16 0.09 -Tunneling No No -Undermining/Tunneling No No -Circular Undermining No No -Wound/Ulcer Outcome Not Healed Not Healed Not Healed -Ulcer Cleansing Rinsed/ Rinsed/ Irrigated with Irrigated with Saline Saline -Foul Odor after Cleansing No No -Bioengineered Tissue Yes No -Type of Bioengineered Tissue Epifix 18mm Disc -Expiration Date 07/26/28 -Product Lot Number [id number] -Percent Used 100 -Lot number of Saline Used [id number] -Bleeding Controlled with Pressure Pressure -Treatment Response Procedure Procedure Tolerated Well Tolerated Well -Offloading No -Debridement - Subq, 1st 20sq cm No Yes -Apply Skin Sub - 1st 25 sq cm - Legs 1 -Epifix 18mm Disc 3 Pain Scale: 0-10 Numeric Is Patient Pain Free? Yes Yes Yes - Nurse 3 - General Ulcer D/C NN Start: 01/26/24 16:26 Freq: Status: Active Protocol: Activity Type Activity Date Activity User E-sign Co-sign Detail Recorded Client Recorded Date Recorded By Document 01/26/24 16:36 JF 0000 01/26/24 16:37 JF Document 01/26/24 16:37 KW l 01/26/24 16:37 KW Edit Result 01/26/24 16:37 KW (1) l 01/26/24 16:38 KW Document 02/02/24 11:43 KW ; 02/02/24 11:44 KW Document 02/09/24 10:10 MT [id number] 02/09/24 10:14 MT (1) #1 RT LAT ANKLE - Primary Dressing Applied Mepilex Border => - Mepilex Border 1 => 01/26/24 01/26/24 02/02/24 16:36 16:37 11:43 Wound Care Center Nurse 3 #1 RT LAT ANKLE -Ulcer Cleansing Rinsed/ Irrigated with Saline -Primary Dressing Applied Mepilex Border Mepilex Border -Other Dressing HYDROGEL -Primary Dressing Covered/Secured with Dry Gauze -Mepilex Border 1 1 -Promogran Marjan Matter Right -Tubular Bandage Single Layer Single Layer -Size of Tubigrip Used Size E Size E -Size E ($) 1 1 -Other PT OWN TUBIGRIP SIZE E Pain Scale: 0-10 Numeric Is Patient Pain Free? Yes Yes Yes WC - Visit Discharge Discharge Condition Stable Stable Stable Ambulatory Status Ambulatory, Ambulatory, Ambulatory, Walker Walker Walker Transportation Private Auto Private Auto Private Auto Accompanied by Medication Reconcilliation completed & Yes No No provided to patient/care provider Clinical Summary of Care Provided Yes Yes Yes 02/09/24 10:10 Wound Care Center Nurse 3 #1 RT LAT ANKLE -Ulcer Cleansing -Primary Dressing Applied Mepilex Border, Promogran Marjan Matter -Other Dressing -Primary Dressing Covered/Secured with -Mepilex Border 1 -Promogran [place] Matter 1 Right -Tubular Bandage Single Layer -Size of Tubigrip Used Size E -Size E ($) 1 -Other Pain Scale: 0-10 Numeric Is Patient Pain Free? Yes WC - Visit Discharge Discharge Condition Ambulatory Status Transportation Accompanied by Medication Reconcilliation completed & provided to patient/care provider Clinical Summary of Care Provided Assessment/Plan Assessment/Plan (1) Non-pressure chronic ulcer of right ankle with fat layer exposed: CODE(S): L97.312 - Non-pressure chronic ulcer of right ankle with fat layer exposed PLAN: Patient was examined and evaluated. All findings were discussed with the patient. All questions were answered to the patient's satisfaction. Excisional debridement down to and including subcutaneous tissue with a number 3 mm dermal curette to the right lower extremity lateral ankle full-thickness ulceration without incident. Predebridement measurement was sanguinous crust. Postdebridement measurement is 0.3 x 0.3 x 0.1 cm. Right lower extremities were cleaned and patted dry. Moist Marjan was applied to the ulceration followed by dry sterile dressing and Tubigrip. Patient was dispensed extra Marjan and will change it every 2 days. He was understanding of this. Follow-up at the wound care center with Dr. Etienne in 2 week. (2) Other specified peripheral vascular diseases: CODE(S): I73.89 - Other specified peripheral vascular diseases
[2024-02-23 10:13] VITALS: BP 168/64; PULSE 47; RESP 16; TEMP 36.3; BMI 62.8
--- NOTE | 2024-02-23 12:58 | PN.PCM_ITS ---
History of Present Illness Date of Service: 02/23/24 Chief Complaint: Right ankle ulceration History of Wound: Chronic right ankle wound Subjective Subjective Mr. Lane is a 68-year-old male presenting to clinic today for follow-up evaluation of right lateral ankle full-thickness ulceration. Denies trauma. Denies constitutional symptoms. Other pedal complaints at this time. Objective Data Objective Data Vital Signs: Vital Signs Temp Pulse Resp BP O2 Del Method 97.4 F L 47 L 16 168/64 H Room Air 02/23/24 10:13 02/23/24 10:13 02/23/24 10:13 02/23/24 10:13 02/09/24 09:50 Oxygen Delivery Method Room Air Weight: 210 kg Body Mass Index (BMI) 62.8 Physical Exam Narrative Vascular: DP and PT pulses are palpable. CFT is brisk. Skin temperature gradient is warm to cool from proximal ankle to distal digit bilateral. Nonpitting edema appreciated to the bilateral lower extremity. Neurological: Light touch intact. Protective sensation is diminished. Dermatological: Full-thickness ulceration to the lateral aspect of the right ankle measuring 0.4 x 0.4 x 0.1 cm. Wound base is granular nature with evidence of small amounts of fibrotic tissue. No active drainage at this time. Webspaces 1 through 4 are clean dry and intact. Toenails 1 through 5 within normal limits. Excisional debridement down to and including subcutaneous tissue with a number 3 mm dermal curette to the right lower extremity lateral ankle full-thickness ulceration without incident. Predebridement measurement was 0.2 x 0.2 x 0.1 cm. Postdebridement measurement is 0.4 x 0.4 x 0.1 cm. Musculoskeletal: Muscle strength is 5 out of 5 to left lower extremity. Right lower extremity muscle strength is 3 out of 5 with evidence of foot drop. Mild pain to palpation to full-thickness ulceration right ankle. No pain with calf c ompression. Debridement Note Debridement Note Debridement Free Text: Excisional debridement down to and including subcutaneous tissue with a number 3 mm dermal curette to the right lower extremity lateral ankle full-thickness ulceration without incident. Predebridement measurement was 0.2 x 0.2 x 0.1 cm. Postdebridement measurement is 0.4 x 0.4 x 0.1 cm. Post-Debridement Measurements and Additional Note: Post-Debridement Measurements/Treatment WC - Nurse 1 - General Ulcer Assessment Start: 01/26/24 16:26 Freq: Status: Active Protocol: LUIS DANIEL.LOWBRENT Activity Type Activity Date Activity User E-sign Co-sign Detail Recorded Client Recorded Date Recorded By Document 01/26/24 16:26 KW l 01/26/24 16:28 KW Document 02/02/24 11:15 KW ; 02/02/24 11:20 KW Document 02/09/24 09:50 KW ; 02/09/24 09:55 KW Document 02/23/24 10:13 CP 02/23/24 10:22 CP 01/26/24 02/02/24 02/09/24 16:26 11:15 09:50 WC - Today's Visit Information Type of service Follow-up Visit Follow-up Visit Follow-up Visit (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/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 (Physician/MOBILE 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 (Physician/MOBILE 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 ) ) ) Arrival Mode Ambulatory, Ambulatory, Ambulatory, Walker Walker Walker Accompanied by Patient Identification Verified (Name & Yes Yes Yes ) Height and Weight Body Mass Index (BMI) 62.8 62.8 62.8 BMI Classification Obese Obese Obese Vital Signs Temperature (97.8 F-99.1 F) 96.4 F L 96.7 F L 98.1 F Temperature Source Temporal Temporal Temporal Pulse Rate (60-100) 51 L 49 L Pulse Location Monitor Monitor Monitor Respiratory Rate (12-18) 18 18 18 Respiratory rate source Observation Observation Observation Oxygen Delivery Method Room Air Room Air Room Air Blood Pressure (90/60-120/80) 163/69 H 187/98 H Blood Pressure Mean (mm Hg) 100 127 Source Monitor Monitor Position Semi-Fowlers Semi-Fowlers Blood Pressure Location Left Arm Left Arm History Since Last Visit- (Skip if this is Patient's initial visit) Have you changed medications since your No No No last visit? Any new allergies or adverse reactions No No No Had a fall/change in ADL's that may No No No increase risk of falls Signs or symptoms of abuse and/or No No No neglect since last visit Have you been in the hospital since your No No No last visit? Has dressing in place as prescribed Yes Yes Yes Has compression in place as prescribed Yes Yes Yes Has offloadiing in place as prescribed N/A N/A N/A Experienced any changes in pain level or No No No management Left Footwear Regular Shoe Regular Shoe Regular Shoe Right Footwear Regular Shoe Regular Shoe Regular Shoe Pain Scale: 0-10 Numeric Is Patient Pain Free? 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 ) Arrival Mode Ambulatory, Walker Accompanied by Patient Identification Verified (Name & Yes ) Height and Weight Body Mass Index (BMI) 62.8 BMI Classification Obese Vital Signs Temperature (97.8 F-99.1 F) 97.4 F L Temperature Source Temporal Pulse Rate (60-100) 47 L Pulse Location Monitor Respiratory Rate (12-18) 16 Respiratory rate source Observation Oxygen Delivery Method Blood Pressure (90/60-120/80) 168/64 H Blood Pressure Mean (mm Hg) 98 Source Monitor Position Semi-Fowlers Blood Pressure Location Right Arm History Since Last Visit- (Skip if this is Patient's initial visit) Have you changed medications since your No last visit? Any new allergies or adverse reactions No Had a fall/change in ADL's that may No increase risk of falls Signs or symptoms of abuse and/or No neglect since last visit Have you been in the hospital since your No last visit? Has dressing in place as prescribed Yes Has compression in place as prescribed Yes Has offloadiing in place as prescribed Experienced any changes in pain level or management Left Footwear Right Footwear Pain Scale: 0-10 Numeric Is Patient Pain Free? Yes WC - Nurse 1 - General Ulcer Measurement Start: 01/26/24 16:26 Freq: Status: Active Protocol: Activity Type Activity Date Activity User E-sign Co-sign Detail Recorded Client Recorded Date Recorded By Document 01/26/24 16:26 KW l 01/26/24 16:28 KW Document 02/02/24 11:15 KW ; 02/02/24 11:20 KW Document 02/09/24 09:50 KW ; 02/09/24 09:55 KW Document 02/23/24 10:13 CP 02/23/24 10:22 CP 01/26/24 02/02/24 02/09/24 16:26 11:15 09:50 Wound Center Nurse 1 #1 RT LAT ANKLE -Current Size (cm) - Length 0.1 0.4 -Current Size (cm) - Width 0.1 0.4 -Current Size (cm) - Depth 0.1 0.1 -Total Square Cm 0.01 0.16 -Date of Last Picture (Recall this 02/02/24 field) -Tunneling -Undermining/Tunneling -Exudate Amt Small Small -Exudate Type Serosanguineous Serosanguineous -Wound Margin Distinct, Outline Attached -Granulation Amt Small (1-33%) Large (67-100%) -Granulation Quality [place] -Necrosis Amt Large (67-100%) Small (1-33%) -Necrotic Tissue Type Adherent Slough Adherent Slough -Structure Exposed -Texture (Essie-wound Skin Appearance) Assessed Assessed Assessed -Moisture (Essie-wound Skin Appearance) Assessed Assessed Assessed -Color (Essie-wound Skin Appearance) Assessed Assessed Assessed -Temperature (Essie-wound Skin No Abnormality No Abnormality No Abnormality Appearance) (Pt Warm) (Pt Warm) (Pt Warm) -Tenderness on Palpation (Essie-wound No No No Skin Appearance) -Ulcer Cleansing Rinsed/ Soap and Water Rinsed/ Irrigated with Irrigated with Saline Saline -Foul Odor after Cleansing No No No -Anesthetic Used 5% Lidocaine 5% Lidocaine Gel Gel -Wound Comment(s) PRODUCT LEFT ON AND INTACT Right Calf (cm) 36.5 37 Right Ankle (cm) 25 23.2 02/23/24 10:13 Wound Center Nurse 1 #1 RT LAT ANKLE -Current Size (cm) - Length 0.5 -Current Size (cm) - Width 0.4 -Current Size (cm) - Depth 0.3 -Total Square Cm 0.20 -Date of Last Picture (Recall this field) -Tunneling No -Undermining/Tunneling No -Exudate Amt Small -Exudate Type Serous -Wound Margin Flat & Intact -Granulation Amt Large (67-100%) -Granulation Quality [place] -Necrosis Amt -Necrotic Tissue Type -Structure Exposed N/A -Texture (Essie-wound Skin Appearance) No Abnormality -Moisture (Essie-wound Skin Appearance) No Abnormality -Color (Essie-wound Skin Appearance) No Abnormality -Temperature (Essie-wound Skin No Abnormality Appearance) (Pt Warm) -Tenderness on Palpation (Essie-wound No Skin Appearance) -Ulcer Cleansing Rinsed/ Irrigated with Saline -Foul Odor after Cleansing No -Anesthetic Used 5% Lidocaine Gel -Wound Comment(s) Right Calf (cm) 36.9 Right Ankle (cm) 22.5 - Nurse 2 - General Ulcer CM Notes Start: 01/26/24 16:26 Freq: Status: Active Protocol: Activity Type Activity Date Activity User E-sign Co-sign Detail Recorded Client Recorded Date Recorded By Document 01/26/24 16:33 JF 0000 01/26/24 16:36 Document 02/02/24 11:38 000 02/02/24 11:38 Document 02/09/24 10:01 [facility] 02/09/24 10:02 Document 02/23/24 10:39 0000 02/23/24 10:41 01/26/24 02/02/24 02/09/24 16:33 11:38 10:01 Wound Center Nurse 2 #1 RT LAT ANKLE -Time 16:33 10:01 -Correct Patient Yes No Yes -Correct Side, Site, Position Yes No Yes -Correct Procedure Yes No Yes -Procedure Performed Yes No Yes -Type of Procedure Debridement Debridement -Clinical Debridement Subcutaneous Subcutaneous -Tissue Removed Subcutaneous Subcutaneous -Post Debridement (cm) - Length 0.4 0.3 -Post Debridement (cm) - Width 0.4 0.3 -Post Debridement (cm) - Depth 0.1 0.1 -Total Square (Post) (cm) 0.16 0.09 -Area of Debridement (cm) - Length 0.4 0.3 -Area of Debridement (cm) - Width 0.4 0.3 -Total Square (Area) (cm) 0.16 0.09 -Tunneling No No -Undermining/Tunneling No No -Circular Undermining No No -Wound/Ulcer Outcome Not Healed Not Healed Not Healed -Ulcer Cleansing Rinsed/ Rinsed/ Irrigated with Irrigated with Saline Saline -Foul Odor after Cleansing No No -Bioengineered Tissue Yes No -Type of Bioengineered Tissue Epifix 18mm Disc -Expiration Date 07/26/28 -Product Lot Number [id number] -Percent Used 100 -Lot number of Saline Used [id number] -Bleeding Controlled with Pressure Pressure -Treatment Response Procedure Procedure Tolerated Well Tolerated Well -Offloading No -Debridement - Subq, 1st 20sq cm No Yes -Apply Skin Sub - 1st 25 sq cm - Legs 1 -Epifix 18mm Disc 3 Pain Scale: 0-10 Numeric Is Patient Pain Free? Yes Yes Yes 02/23/24 10:39 Wound Center Nurse 2 #1 RT LAT ANKLE -Time 10:40 -Correct Patient Yes -Correct Side, Site, Position Yes -Correct Procedure Yes -Procedure Performed Yes -Type of Procedure Debridement -Clinical Debridement Subcutaneous -Tissue Removed Subcutaneous -Post Debridement (cm) - Length 0.4 -Post Debridement (cm) - Width 0.4 -Post Debridement (cm) - Depth 0.1 -Total Square (Post) (cm) 0.16 -Area of Debridement (cm) - Length 0.4 -Area of Debridement (cm) - Width 0.4 -Total Square (Area) (cm) 0.16 -Tunneling No -Undermining/Tunneling No -Circular Undermining No -Wound/Ulcer Outcome Not Healed -Ulcer Cleansing Rinsed/ Irrigated with Saline -Foul Odor after Cleansing No -Bioengineered Tissue No -Type of Bioengineered Tissue -Expiration Date -Product Lot Number -Percent Used -Lot number of Saline Used -Bleeding Controlled with Pressure -Treatment Response Procedure Tolerated Well -Offloading No -Debridement - Subq, 1st 20sq cm Yes -Apply Skin Sub - 1st 25 sq cm - Legs -Epifix 18mm Disc Pain Scale: 0-10 Numeric Is Patient Pain Free? Yes - Nurse 3 - General Ulcer D/C NN Start: 01/26/24 16:26 Freq: Status: Active Protocol: Activity Type Activity Date Activity User E-sign Co-sign Detail Recorded Client Recorded Date Recorded By Document 01/26/24 16:36 JF 0000 01/26/24 16:37 JF Document 01/26/24 16:37 KW l 01/26/24 16:37 KW Edit Result 01/26/24 16:37 KW (1) l 01/26/24 16:38 KW Document 02/02/24 11:43 KW ; 02/02/24 11:44 KW Document 02/09/24 10:10 [id number] 02/09/24 10:14 CO Document 02/23/24 11:17 [id number] 02/23/24 11:18 JF (1) #1 RT LAT ANKLE - Primary Dressing Applied Mepilex Border => - Mepilex Border 1 => 01/26/24 01/26/24 02/02/24 16:36 16:37 11:43 Wound Care Center Nurse 3 #1 RT LAT ANKLE -Ulcer Cleansing Rinsed/ Irrigated with Saline -Foul Odor after Cleansing -Primary Dressing Applied Mepilex Border Mepilex Border -Other Dressing HYDROGEL -Primary Dressing Covered/Secured with Dry Gauze -Mepilex Border 1 1 -Promogran Marjan Matter Right -Tubular Bandage Single Layer Single Layer -Size of Tubigrip Used Size E Size E -Size E ($) 1 1 -Other PT OWN TUBIGRIP SIZE E Pain Scale: 0-10 Numeric Is Patient Pain Free? Yes Yes Yes WC - Visit Discharge Discharge Condition Stable Stable Stable Ambulatory Status Ambulatory, Ambulatory, Ambulatory, Walker Walker Walker Transportation Private Auto Private Auto Private Auto Accompanied by Medication Reconcilliation completed & Yes No No provided to patient/care provider Clinical Summary of Care Provided Yes Yes Yes 02/09/24 02/23/24 10:10 11:17 Wound Care Center Nurse 3 #1 RT LAT ANKLE -Ulcer Cleansing Rinsed/ Irrigated with Saline -Foul Odor after Cleansing No -Primary Dressing Applied Mepilex Border, Mepilex Border, Promogran Promogran Marjan Matter Marjan Matter -Other Dressing -Primary Dressing Covered/Secured with -Mepilex Border 1 1 -Promogran Marjan Matter 1 1 Right -Tubular Bandage Single Layer Single Layer -Size of Tubigrip Used Size E Size E -Size E ($) 1 1 -Other Pain Scale: 0-10 Numeric Is Patient Pain Free? Yes Yes WC - Visit Discharge Discharge Condition Stable Ambulatory Status Ambulatory, Walker Transportation Private Auto Accompanied by Medication Reconcilliation completed & Yes provided to patient/care provider Clinical Summary of Care Provided Yes Assessment/Plan Assessment/Plan (1) Non-pressure chronic ulcer of right ankle with fat layer exposed: CODE(S): L97.312 - Non-pressure chronic ulcer of right ankle with fat layer exposed PLAN: Patient was examined and evaluated. All findings were discussed with the patient. All questions were answered to the patient's satisfaction. Excisional debridement down to and including subcutaneous tissue with a number 3 mm dermal curette to the right lower extremity lateral ankle full-thickness ulceration without incident. Predebridement measurement was 0.2 x 0.2 x 0.1 cm. Postdebridement measurement is 0.4 x 0.4 x 0.1 cm. Right lower extremities were cleaned patted dry. Moist Marjan was applied ulceration by dry sterile dressing and Tubigrip. Patient will do every other day dressing changes and follow-up in 2 weeks. Follow-up at the wound care center with Dr. Etienne in 2 week. (2) Other specified peripheral vascular diseases: CODE(S): I73.89 - Other specified peripheral vascular diseases
== END 2024-02-23 23:59 | disposition home or self-care (01) ==
LOC: WC 10:00
PROVIDERS: PCP Nurse Practitioner Family; Referring Provider Nurse Practitioner Family; Visit Provider Podiatrist Foot & Ankle Surgery
DX: L97.312 Non-pressure chronic ulcer of right ankle with fat layer exposed (principal); I70.25 Atherosclerosis of native arteries of other extremities with ulceration; Z87.891 Personal history of nicotine dependence; I73.89 Other specified peripheral vascular diseases
CPT/HCPCS: 11042; 15271; 99213; Q4186; G0463

== ENCOUNTER 2024-03-08 10:09 | Outpatient (RCR) | payer MEDICARE, SELFPAY ==
[2024-02-24 00:33] VITALS: BP 151/101; PULSE 62; RESP 18; TEMP 35.4; BMI 62.8
[2024-03-08 10:12] VITALS: BP 171/69; PULSE 54; RESP 18; TEMP 36.3; BMI 62.8
--- NOTE | 2024-03-08 11:17 | PCM.WC.PN ---
History of Present Illness Date of Service: 03/08/24 Chief Complaint: Right ankle ulceration History of Wound: Chronic right ankle wound Subjective Subjective Mr. Lane is a 68-year-old male presenting to follow-up evaluation of right lateral ankle wound. Patient has been compliant with dressing changes. Patient admits that the wound is now healed. He does walk with sneakers and his walker. Denies any trauma or falls. Denies constitutional symptoms. No other pedal complaints at this time. Objective Data Objective Data Vital Signs: Vital Signs Temp Pulse Resp BP 97.3 F L 54 L 18 171/69 H 03/08/24 10:12 03/08/24 10:12 03/08/24 10:12 03/08/24 10:12 Weight: 210 kg Body Mass Index (BMI) 62.8 Physical Exam Narrative Vascular: DP and PT pulses are palpable. CFT is brisk. Skin temperature gradient is warm to cool from proximal ankle to distal digit bilateral. Nonpitting edema appreciated to the bilateral lower extremity. Neurological: Light touch intact. Protective sensation is diminished. Dermatological: Full-thickness ulceration to the lateral aspect of the right ankle measuring 0.1 x 0.1 x 0.1 cm. Wound base is granular nature with evidence of small amounts of fibrotic tissue. No active drainage at this time. Webspaces 1 through 4 are clean dry and intact. Toenails 1 through 5 within normal limits. Excisional debridement down to and including subcutaneous tissue with a number 3 mm dermal curette to the right lower extremity lateral ankle full-thickness ulceration without incident. Predebridement measurement was callus. Postdebridement measurement is 0.1 x 0.1 x 0.1 cm. Musculoskeletal: Muscle strength is 5 out of 5 to left lower extremity. Right lower extremity muscle strength is 3 out of 5 with evidence of foot drop. Mild pain to palpation to full-thickness ulceration right ankle. No pain with calf compression. Debridement Note Debridement Note Debridement Free Text: Excisional debridement down to and including subcutaneous tissue with a number 3 mm dermal curette to the right lower extremity lateral ankle full-thickness ulceration without incident. Predebridement measurement was callus. Postdebridement measurement is 0.1 x 0.1 x 0.1 cm. 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 ) Arrival Mode Ambulatory, Walker Transfer Assistance None Patient Identification Verified (Name & Yes ) Patient Requires Transmission-Based No Precautions Height and Weight Body Mass Index (BMI) 62.8 BMI Classification Obese Vital Signs Temperature (97.8 F-99.1 F) 97.3 F L Temperature Source Temporal Pulse Rate (60-100) 54 L Pulse Location Monitor Respiratory Rate (12-18) 18 Respiratory rate source Observation Blood Pressure (90/60-120/80) 171/69 H Blood Pressure Mean (mm Hg) 103 Source Monitor History Since Last Visit- (Skip if this is Patient's initial visit) Have you changed medications since your No last visit? Any new allergies or adverse reactions No Had a fall/change in ADL's that may No increase risk of falls Signs or symptoms of abuse and/or No neglect since last visit Have you been in the hospital since your No last visit? Has dressing in place as prescribed Yes Has compression in place as prescribed Yes Has offloadiing in place as prescribed N/A Experienced any changes in pain level or No management Pain Scale: 0-10 Numeric Is Patient Pain Free? Yes - Nurse 1 - General Ulcer Measurement Start: 03/08/24 10:10 Freq: Status: Active Protocol: Activity Type Activity Date Activity User E-sign Co-sign Detail Recorded Client Recorded Date Recorded By Document 03/08/24 10:12 NARESH [id number] 03/08/24 10:17 DL 03/08/24 10:12 Wound Center Nurse 1 #1 RT LAT ANKLE -Current Size (cm) - Length 0.6 -Current Size (cm) - Width 0.4 -Current Size (cm) - Depth 0.1 -Total Square Cm 0.24 -Exudate Amt Medium -Exudate Type Serosanguineous -Wound Margin Distinct, Outline Attached -Granulation Amt Large (67-100%) -Granulation Quality [place] -Necrosis Amt None Present (0 %) -Structure Exposed N/A -Texture (Essie-wound Skin Appearance) Scarring -Moisture (Essie-wound Skin Appearance) No Abnormality -Color (Essie-wound Skin Appearance) No Abnormality -Ulcer Cleansing Soap and Water -Foul Odor after Cleansing No -Anesthetic Used 5% Lidocaine Gel Right Calf (cm) 37.7 Right Ankle (cm) 22.2 WC - Nurse 2 - General Ulcer CM Notes Start: 03/08/24 10:10 Freq: Status: Active Protocol: Activity Type Activity Date Activity User E-sign Co-sign Detail Recorded Client Recorded Date Recorded By Document 03/08/24 10:25 0000 03/08/24 10:26 03/08/24 10:25 Wound Center Nurse 2 #1 RT LAT ANKLE -Correct Patient Yes -Correct Side, Site, Position Yes -Correct Procedure Yes -Procedure Performed Yes -Type of Procedure Debridement -Tissue Removed Epidermis, Subcutaneous -Post Debridement (cm) - Length 0.1 -Post Debridement (cm) - Width 0.1 -Post Debridement (cm) - Depth 0.1 -Total Square (Post) (cm) 0.01 -Area of Debridement (cm) - Length 0.1 -Area of Debridement (cm) - Width 0.1 -Total Square (Area) (cm) 0.01 -Tunneling No -Undermining/Tunneling No -Circular Undermining No -Wound/Ulcer Outcome Not Healed -Ulcer Cleansing Wound Cleanser -Foul Odor after Cleansing No -Bioengineered Tissue No -Bleeding Controlled with Pressure -Treatment Response Procedure Tolerated Well -Offloading No -Debridement - Subq, 1st 20sq cm Yes Pain Scale: 0-10 Numeric Is Patient Pain Free? Yes - Nurse 3 - General Ulcer D/C NN Start: 03/08/24 10:10 Freq: Status: Active Protocol: Activity Type Activity Date Activity User E-sign Co-sign Detail Recorded Client Recorded Date Recorded By Document 03/08/24 10:29 JF 0000 03/08/24 10:30 03/08/24 10:29 Wound Care Center Nurse 3 #1 RT LAT ANKLE -Ulcer Cleansing Rinsed/ Irrigated with Saline -Foul Odor after Cleansing No -Primary Dressing Applied Promogran Marjan Matter -Other Covering BANDAID -Promogran Marjan Matter 1 Pain Scale: 0-10 Numeric Is Patient Pain Free? Yes WC - Visit Discharge Discharge Condition Stable Ambulatory Status Ambulatory, Walker Transportation Private Auto Medication Reconcilliation completed & Yes provided to patient/care provider Clinical Summary of Care Provided Yes Assessment/Plan Assessment/Plan (1) Non-pressure chronic ulcer of right ankle with fat layer exposed: CODE(S): L97.312 - Non-pressure chronic ulcer of right ankle with fat layer exposed PLAN: Patient was examined and evaluated. All findings were discussed with the patient. All questions were answered to the patient's satisfaction. Excisional debridement down to and including subcutaneous tissue with a number 3 mm dermal curette to the right lower extremity lateral ankle full-thickness ulceration without incident. Predebridement measurement was callus. Postdebridement measurement is 0.1 x 0.1 x 0.1 cm. Patient is will continue Marjan every other day and follow-up in 1 month. Follow-up at the wound care center with Dr. Etienne in 1 month. (2) Other specified peripheral vascular diseases: CODE(S): I73.89 - Other specified peripheral vascular diseases
== END 2024-03-25 23:59 | disposition home or self-care (01) ==
LOC: WC 10:09
PROVIDERS: PCP Nurse Practitioner Family; Referring Provider Nurse Practitioner Family; Visit Provider Podiatrist Foot & Ankle Surgery
DX: L97.312 Non-pressure chronic ulcer of right ankle with fat layer exposed (principal); I73.89 Other specified peripheral vascular diseases
CPT/HCPCS: 11042

== ENCOUNTER 2024-04-05 10:05 | Outpatient (RCR) | payer MEDICARE, SELFPAY ==
[2024-03-26 00:45] VITALS: BP 151/101; PULSE 62; RESP 18; TEMP 35.4; BMI 62.8
[2024-04-05 10:40] VITALS: RESP 18; TEMP 36; BMI 62.8
--- NOTE | 2024-04-05 13:21 | PCM.WC.PN ---
History of Present Illness Date of Service: 04/05/24 Chief Complaint: Right ankle ulceration History of Wound: Chronic right ankle wound Subjective Subjective Mr. Arrieta is a 68-year-old male presenting to wound care center today for follow-up evaluation of right lateral ankle ulceration. Patient has been compliant with dressing changes. He admits the wound is healed. 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 He is grateful for his care. Denies trauma. Denies constitutional symptoms. No other pedal complaints at this time. Objective Data Objective Data Vital Signs: Vital Signs Temp Pulse Resp BP O2 Del Method 96.8 F L 62 18 151/101 H Room Air 04/05/24 10:40 03/26/24 00:45 04/05/24 10:40 03/26/24 00:45 04/05/24 10:40 Oxygen Delivery Method Room Air Weight: 210 kg Body Mass Index (BMI) 62.8 Physical Exam Narrative Vascular: DP and PT pulses are palpable. CFT is brisk. Skin temperature gradient is warm to cool from proximal ankle to distal digit bilateral. Nonpitting edema appreciated to the bilateral lower extremity. Neurological: Light touch intact. Protective sensation is diminished. Dermatological: Full-thickness ulceration to the lateral aspect of the right ankle is now healed. Webspaces 1 through 4 are clean dry and intact. Musculoskeletal: Muscle strength is 5 out of 5 to left lower extremity. Right lower extremity muscle strength is 3 out of 5 with evidence of foot drop. Patient shows evidence of equinus contracture to the right lower extremity. Ankle joint range of motion is decreased in dorsiflexion extended and decrease in dorsiflexion knee flexed bilateral. 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 Any new allergies or adverse reactions No Had a fall/change in ADL's that may No increase risk of falls Signs or symptoms of abuse and/or No neglect since last visit Have you been in the hospital since your No last visit? Has dressing in place as prescribed Yes Has compression in place as prescribed Yes Has offloadiing in place as prescribed N/A Experienced any changes in pain level or No management Left Footwear Regular Shoe Right Footwear Regular Shoe Pain Scale: 0-10 Numeric Is Patient Pain Free? Yes WC - Nurse 1 - General Ulcer Measurement Start: 04/05/24 10:40 Freq: Status: Active Protocol: Activity Type Activity Date Activity User E-sign Co-sign Detail Recorded Client Recorded Date Recorded By Document 04/05/24 10:40 [email or web address] [id number] 04/05/24 10:46 LUZ 04/05/24 10:40 Wound Center Nurse 1 #1 RT LAT ANKLE -Current Size (cm) - Length 0.1 -Current Size (cm) - Width 0.1 -Current Size (cm) - Depth 0.1 -Total Square Cm 0.01 -Date of Last Picture (Recall this 04/05/24 field) -Exudate Amt None Present -Texture (Essie-wound Skin Appearance) Assessed -Moisture (Essie-wound Skin Appearance) Assessed -Color (Essie-wound Skin Appearance) Assessed -Temperature (Essie-wound Skin No Abnormality Appearance) (Pt Warm) -Tenderness on Palpation (Essie-wound No Skin Appearance) -Ulcer Cleansing Rinsed/ Irrigated with Saline -Foul Odor after Cleansing No WC - Nurse 2 - General Ulcer CM Notes Start: 04/05/24 10:40 Freq: Status: Active Protocol: Activity Type Activity Date Activity User E-sign Co-sign Detail Recorded Client Recorded Date Recorded By Document 04/05/24 10:54 [email or web address] [id number] 04/05/24 10:55 04/05/24 10:54 Wound Center Nurse 2 -Correct Patient No -Correct Side, Site, Position No -Correct Procedure No -Procedure Performed No -Post Debridement (cm) - Length 0 -Post Debridement (cm) - Width 0 -Post Debridement (cm) - Depth 0 -Total Square (Post) (cm) 0 -Area of Debridement (cm) - Length 0 -Area of Debridement (cm) - Width 0 -Total Square (Area) (cm) 0 -Wound/Ulcer Outcome Healed- Epithelialized Pain Scale: 0-10 Numeric Is Patient Pain Free? Yes WC - Nurse 3 - General Ulcer D/C NN Start: 04/05/24 10:40 Freq: Status: Active Protocol: Activity Type Activity Date Activity User E-sign Co-sign Detail Recorded Client Recorded Date Recorded By Document 04/05/24 10:55 [id number] 04/05/24 10:55 04/05/24 10:55 Is Patient Pain Free? Yes WC - Visit Discharge Discharge Condition Stable Ambulatory Status Ambulatory, Walker Transportation Private Auto Accompanied by Medication Reconcilliation completed & Yes provided to patient/care provider Clinical Summary of Care Provided Yes Assessment/Plan Assessment/Plan (1) Non-pressure chronic ulcer of right ankle with fat layer exposed: CODE(S): L97.312 - Non-pressure chronic ulcer of right ankle with fat layer exposed PLAN: Patient was examined and evaluated. All findings were discussed with the patient. All questions were answered to the patient's satisfaction. The patient's right lateral full-thickness wound to the ankle is now healed. Educated the patient that we will need to move forward with physical therapy to increase the patient's range of motion to the bilateral lower extremity. He is agreeable. I educated the patient that he is unsuccessful with physical therapy will have to move forward with a tendo Achilles lengthening due to his gastrocsoleus equinus as well as authorizing the patient for a solid AFO in private office. Patient is cleared to discharge from the wound care center. He will follow-up as needed. (2) Tightness of right heel cord: CODE(S): M67.01 - Short Achilles tendon (acquired), right ankle (3) Short Achilles tendon (acquired), left ankle: CODE(S): M67.02 - Short Achilles tendon (acquired), left ankle
--- NOTE | 2024-04-06 08:50 | WC ---
PHOTO 04/05/24 RIGHT LATERAL ANKLE
== END 2024-04-05 11:00 | disposition home or self-care (01) ==
LOC: WC 10:05
PROVIDERS: PCP Nurse Practitioner Family; Referring Provider Nurse Practitioner Family; Visit Provider Podiatrist Foot & Ankle Surgery
DX: L97.312 Non-pressure chronic ulcer of right ankle with fat layer exposed (principal); M67.01 Short Achilles tendon (acquired), right ankle; M67.02 Short Achilles tendon (acquired), left ankle
CPT/HCPCS: 99213; G0463

== ENCOUNTER → 2024-04-05 | Outpatient (CLI) | payer MEDICARE, SELFPAY ==
[2024-04-05 12:32] LABS: Absolute Lymphocyte Count 3.01 X10^3/uL (0.83-4.51); Absolute Neutrophil Count 4.1 X10^3/uL (2.0-7.7); Basophil% 1.2 % (0-1); Eosinophil# 0.19 X10^3/uL; Eosinophils% 2.3 % (0-5); Hematocrit 45.2 % (40-54); Hemoglobin 14.6 g/dL (13.0-16.5); Lymphocyte # 3.01 X10^3/ul (0.83-4.51); Mean Corp Hgb Conc 32.3 g/dL (32-36); Mean Corpuscular Volume 86.6 fL (80-94); Mean Platelet Vol. 9.1 fl (6.2-12.0); Monocyte# 0.76 X10^3/uL; Monocyte% 9.3 % (0-10); NRBC Flagged by Analyzer 0 % (0-5); Neutrophil # 4.05 X10^3/uL (2.7-7.7); Platelet Count 264 K/mm3 (150-450); RBC Distribution Width SD 44.9 fl (35.1-43.9); Red Blood Count 5.22 M/mm3 (4.6-6.2); White Blood Count 8.1 K/mm3 (4.4-11.0)
[2024-04-05 13:44] LABS: ALB/GLOB Ratio 0.9 RATIO (0.9-2.4); AST(SGOT) 9 U/L (15-37); Alanine Aminotransfer ALT/SGPT 12 U/L (16-61); Albumin, Serum 3.5 g/dL (3.2-5.0); Alkaline Phosphatase 113 U/L (45-117); Anion Gap 4 (5-15); BUN 36 mg/dL (7-18); BUN/Creat Ratio 27.1 RATIO (10-20); Calcium,Total 9.3 mg/dL (8.5-10.1); Chloride 108 mmol/L (98-107); Cholesterol 155 mg/dL (200); Creatinine, Serum 1.33 mg/dL (0.70-1.30); EST Glomerular Filtration Rate 57 mL/min (>60); Est Glom Filt Rate - Afr Amer 69 mL/min (>60); Globulin 3.7 g/dL (2.2-4.2); Glucose 99 mg/dL (74-106); High Density Lipoprotein 46 mg/dL; PSA,Total - Annual Screen 3.12 ng/mL (0.00-4.00); Potassium 4.4 mmol/L (3.5-5.1); Protein, Total 7.2 g/dL (6.4-8.2); Sodium Level 136 mmol/L (136-145); Triglycerides 133 mg/dL; Very Low Density Lipoprotein 27 mg/dL (5-40)
== END | disposition home or self-care (01) ==
PROVIDERS: PCP Nurse Practitioner Family; Referring Provider Nurse Practitioner Family; Visit Provider Nurse Practitioner Family
DX: I10 Essential (primary) hypertension (principal); E78.2 Mixed hyperlipidemia; Z12.5 Encounter for screening for malignant neoplasm of prostate
CPT/HCPCS: 36415; 80053; 80061; 84153; 85025; G0103